=== PATIENT | female | born 1945 | race Caucasian/White ===

== ENCOUNTER → 2017-01-26 | Outpatient (CLI) | payer OTHER ==
[~2017-01-26] MED LIST: CLON0.5T3 PO; EFFSR75 PO; LAMO100T16 PO; LAMO1TAB21 PO; LEVO25TA5 PO; MINO100C22 PO; ONDA4TAB7 SL; PRM625 PO; PRMVC PV; VENL75CA73 PO
--- NOTE | 2017-01-29 12:45 | MAMMOGRAPHY REPORT ---
BILATERAL DIGITAL SCREENING MAMMOGRAM WITH CAD: 01/26/2017 CLINICAL HISTORY: Routine screening. Patient has no complaints. TECHNIQUE: Current study was also evaluated with a Computer Aided Detection (CAD) system. Bilatera l CC and MLO views were obtained. COMPARISON: Comparison is made to exams dated: 01/26/2016 mammogram, 01/25/2015 mammogram, 01/23/2014 mirian mogram, 01/22/2013 mammogram, 01/16/2012 mammogram, and 01/11/2011 mammogram - [facility]. BREAST COMPOSITION: There are scattered areas of fibroglandular density in both breasts. FINDINGS: No suspicious masses, calcifications, or areas of architectural distortion are noted in e ither breast. There has been no significant interval change compared to prior exams. Nodular asymme try seen within the right superior breast middle depth on the MLO view is similar to prior exams inc luding the 2014 exam. IMPRESSION: ACR BI-RADS CATEGORY 2: BENIGN There is no mammographic evidence of malignancy. A 1 year screening mammogram is recommended. The p atient will receive written notification of the results. Approximately 10% of breast cancers are not detected with mammography. A negative mammographic repor t should not delay biopsy if a clinically suggestive mass is present. Norah Gregorio M.D. ah/:01/26/2017 16:11:24 Nutrition And Dietetics Instructor: Tammie HOLLEY(R)(M), [facility] letter sent: Normal 1/2 BI-RADS Code: ACR BI-RADS Category 2: Benign
== END | disposition home or self-care (01) ==
LOC: C.MAMM 09:12
PROVIDERS: ATTEND Nurse Practitioner
DX: Z12.31 Encounter for screening mammogram for malignant neoplasm of breast (principal)

== ENCOUNTER 2017-03-21 15:59 | Emergency (ER) | payer OTHER ==
[~2017-03-21] VITALS: Ht 165.1 cm; Wt 63.9 kg
[~2017-03-21 15:59] MED LIST changes: -LAMO1TAB21 PO; -LEVO25TA5 PO; -PRMVC PV; -VENL75CA73 PO
[2017-03-21 16:00] VITALS: TEMP 36.6; Ht 165.1 cm; Wt 63.9 kg
[2017-03-21] MEDS ORDERED: KETOROLAC TROMETHAMINE 30 MG/ML VIAL IV STA (16:22)
[2017-03-21] MEDS ORDERED: SODIUM CHLORIDE 0.9% 1000ML 1,000 ML IV STA (16:22)
[2017-03-21] MEDS ORDERED: OPTIRAY 320 IV PRN (16:45)
[2017-03-21 16:48] LABS: URINE APPEARANCE CLEAR (CLEAR); URINE BILIRUBIN NEG (NEG); URINE COLOR YELLOW; URINE NITRITE NEG (NEG); URINE PH 6.5 (4.5-7.5); URINE SPECIFIC GRAVITY 1.007 (1.000-1.030); UROBILINOGEN NEG (NEG); ZZUR CULT IF INDIC CLEAN CATCH NO
[2017-03-21 16:49] LABS: MANUAL MICROSCOPIC REQUIRED? YES; REVIEW REQ? NO
[2017-03-21 17:06] LABS: URINE RBC 0-4 /hpf (0-4)
[2017-03-21 17:07] LABS: URINE BACTERIA NEG (NEG)
[2017-03-21 17:12] LABS: BASO % 0.6 %; BASO ABS # 0.04 K/uL (0-0.2); COMPLETE YES; EOS % 2.9 %; HEMATOCRIT 39.3 % (37-47); IG% 0.3 %; LYMPH % 30.2 %; LYMPH ABS # 2.09 K/uL (1.2-3.4); MEAN CELL VOLUME 89.9 fL (80-100); MEAN CORPUSCULAR HGB CONC 33.3 g/dl (32-36); MEAN PLATELET VOLUME 9.9 fL (7.4-10.4); MONO % 7.8 %; NEUT % 58.2 %; PLATELET COUNT 262 K/uL (130-400); RED BLOOD COUNT 4.37 M/uL (4.2-5.4); WHITE BLOOD COUNT 6.91 K/uL (4.8-10.8)
[2017-03-21] MEDS ORDERED: VENL75CA73 PO (17:21)
[2017-03-21] MEDS ORDERED: LAMO1TAB21 PO (17:21)
[2017-03-21] MEDS ORDERED: PRMVC PV (17:21)
[2017-03-21] MEDS ORDERED: LEVO25TA5 PO (17:21)
[2017-03-21] MEDS ORDERED: CLON0.5T3 PO ×2 (17:21)
[2017-03-21 17:39] LABS: AST/SGOT 19 U/L (15-37); BLOOD UREA NITROGEN 8 mg/dl (7-18); BUN/CREATININE RATIO 10.4 (10-20); CARBON DIOXIDE 30 mmol/L (21-32); CHLORIDE 106 mmol/L (98-107); CREATININE 0.75 mg/dl (0.60-1.20); GLUCOSE 93 mg/dl (70-99); POTASSIUM 3.8 mmol/L (3.5-5.1); SODIUM 142 mmol/L (136-145)
[2017-03-21 17:41] LABS: ALKALINE PHOSPHATASE 84 U/L (45-117); ALT/SGPT 23 U/L (12-78)
--- NOTE | 2017-03-21 18:16 | DIAGNOSTIC IMAGING REPORT ---
CT ABD/PELVIS IV CONTRAST ONLY CLINICAL HISTORY: Worsening lower abdominal pain and constipation COMPARISON STUDY: 02/24/2010 TECHNIQUE: Following the IV administration of 117 mL of Optiray-320, CT scan of the abdomen and pelvis was performed from the lung bases to the proximal femurs. Images are reviewed in the axial, sagittal, and coronal planes. IV contrast was administered without complication. CT DOSE: 298.51 mGy.cm FINDINGS: Lower chest: There are bibasal atelectatic changes. Liver: There is a new 6 mm hypodensity within the right lobe of the liver. This is of rather low attenuation and may represent a cyst. Gallbladder: Surgically absent Spleen: Normal in size and attenuation. Pancreas: Unremarkable. Adrenal glands: Unremarkable. Kidneys: There is a probable 3 mm right renal calculus. There is no hydronephrosis. There is a to small to characterize 6 mm upper pole right renal hypodensity likely representing a cyst. Bowel: There are no transition zones indicate bowel obstruction. There is moderate fecal retention. There is no evidence of acute diverticulitis. There are no findings to indicate acute appendicitis. The appendix is difficult to visualize with certainty. Peritoneum: There is no intraperitoneal free air or abdominal ascites. Vasculature: The abdominal aorta is normal in course and caliber. Adenopathy: None. Pelvic viscera: The uterus appears surgically absent Skeletal structures: No destructive osseous lesions are seen. IMPRESSION: 1. Moderate fecal retention, finding in keeping with the clinical history of constipation 2. No evidence of bowel obstruction. No evidence of free air 3. No acute inflammatory changes 4. Surgically absent gallbladder and uterus Electronically signed by: Chad Gaxiola M.D. 03/21/2017 6:15 PM Dictated Date/Time: 03/21/2017 6:09 PM
[2017-03-21 18:41] VITALS: BP 153/83; PULSE 84; O2SAT 97
--- NOTE | 2017-03-21 22:58 | EMERGENCY ROOM VISIT NOTE ---
History Report prepared by Kamar: Maricruz Mixon Under the Supervision of: Dr. Julio Lopez D.O. First contact with patient: 16:04 Chief Complaint: CONSTIPATION Stated Complaint: SEVERE CONSTIPATION Nursing Triage Summary: Triage note: pt reports constipation. pt reports she has not had a bm in 2 weeks. pt reports she had an x-ray done yesterday "it showed no blockage." History of Present Illness The patient is a 71 year old female who presents to the Emergency Room with complaints of constant constipation beginning 3 weeks ago. The patient states that she had not had a bowel movement in 2 weeks before going to see Dr. Vale. She reports that she tried using 2 laxatives prior to seeing Dr. Vale and when she got to the office she was able to have a watery bowel movement after using Magnesium Citrate. She notes that she has also had 2 enemas without relief of her constipation. The patient states that she has been able to pass gas but has not had another bowel movement since she was at Dr. Vale's office 5 days ago. She reports that she does not have a history of constipation but has had some hard stools in the past. The patient complains of a headache. She denies any abdominal pain, change in vision, fevers, chest pain, shortness of breath, nausea, vomiting, diarrhea, pain with urination, and melena. She notes that she had a CT scan 2 weeks ago of her abdomen. Source of History: patient Onset: 3 weeks ago Position: other (global) Quality: other (constipation) Timing: constant Modifying Factors (Relieving): other (none) Associated Symptoms: + headache, No SOB, No chest pain, No diarrhea, No fevers, No nausea, No urinary symptoms, No vomiting Note: She denies any abdominal pain, change in vision. Review of Systems See HPI for pertinent positives & negatives. A total of 10 systems reviewed and were otherwise negative. Past Medical & Surgical Medical Problems: (1) Acne (2) Asthma (3) C. Diff (4) Pneumonia (5) Urinary problem Surgical Problems: (1) H/O: hysterectomy (2) Hx of cholecystectomy Family History Diabetes mellitus FH: cancer FH: gallbladder disease FH: heart disease FH: lung disease Hypertension Kidney disease or stones Social History Smoking Status: Never Smoker Alcohol Use: none Marital Status: Housing Status: lives with significant other Occupation Status: retired Current/Historical Medications Scheduled Clonazepam (Klonopin), 0.5 MG PO PM Estrogens, Conjugated (Premarin), 1 APPLN PV 2XWK Lamotrigine (Lamictal), 200 MG PO QAM Lamotrigine (Lamotrigine), 100 MG PO QPM Levothyroxine Sodium (Levothyroxine Sodium), 25 MCG PO DAILY Venlafaxine Hcl (Venlafaxine Extended Rel), 75 MG PO BID Scheduled PRN Clonazepam (Klonopin), 1 MG PO QAM PRN for Anxiety Allergies Coded Allergies: Sulfamethoxazole (Verified Allergy, Mild, 03/21/17) Trimethoprim (Verified Allergy, Mild, 03/21/17) Adhesives (Verified Allergy, Unknown, RXN TO ADHESIVE TAPE, 03/21/17) Latex1 -Allergic Contact Dermititis (Verified Allergy, Unknown, RASH, 03/21) Sulfa Drugs (Verified Allergy, Unknown, BACTRIM=RASH, 03/21/17) Physical Exam Vital Signs Date Time Temp Pulse Resp B/P Pulse Ox O2 Delivery O2 Flow Rate FiO2 03/21/17 18:41 84 16 153/83 97 03/21/17 18:21 84 16 188/94 97 Room Air 03/21/17 17:08 80 12 152/73 100 Room Air 03/21/17 16:45 75 03/21/17 16:00 36.6 89 18 166/79 100 Room Air Physical Exam GENERAL: sitting up in bed, alert, well appearing, well nourished, no distress, non-toxic EYE EXAM: normal conjunctiva OROPHARYNX: no exudate, no erythema, lips, buccal mucosa, and tongue normal and mucous membranes are moist NECK: supple, no nuchal rigidity, no adenopathy, non-tender LUNGS: Clear to auscultation. Normal chest wall mechanics HEART: no murmurs, S1 normal and S2 normal ABDOMEN: abdomen soft, minimal tenderness in lower abdomen, normo-active bowel sounds, no masses, no rebound or guarding. BACK: Back is symmetrical on inspection and there is no deformity, no midline tenderness, no CVA tenderness. SKIN: no rashes and no bruising UPPER EXTREMITIES: upper extremities are grossly normal. LOWER EXTREMITIES: No pitting edema. NEURO EXAM: Normal sensorium, cranial nerves II-XII grossly intact, normal speech, no gross weakness of arms, no gross weakness of legs. Medical Decision & Procedures ER Provider Diagnostic Interpretation: Radiology results as stated below per my review and the radiologist's interpretation: CT ABD/PELVIS IV CONTRAST ONLY FINDINGS: Lower chest: There are bibasal atelectatic changes. Liver: There is a new 6 mm hypodensity within the right lobe of the liver. This is of rather low attenuation and may represent a cyst. Gallbladder: Surgically absent Spleen: Normal in size and attenuation. Pancreas: Unremarkable. Adrenal glands: Unremarkable. Kidneys: There is a probable 3 mm right renal calculus. There is no hydronephrosis. There is a to small to characterize 6 mm upper pole right renal hypodensity likely representing a cyst. Bowel: There are no transition zones indicate bowel obstruction. There is moderate fecal retention. There is no evidence of acute diverticulitis. There are no findings to indicate acute appendicitis. The appendix is difficult to visualize with certainty. Peritoneum: There is no intraperitoneal free air or abdominal ascites. Vasculature: The abdominal aorta is normal in course and caliber. Adenopathy: None. Pelvic viscera: The uterus appears surgically absent Skeletal structures: No destructive osseous lesions are seen. IMPRESSION: 1. Moderate fecal retention, finding in keeping with the clinical history of constipation 2. No evidence of bowel obstruction. No evidence of free air 3. No acute inflammatory changes 4. Surgically absent gallbladder and uterus Electronically signed by: Chad Gaxiola M.D. 03/21/2017 6:15 PM Dictated Date/Time: 03/21/2017 6:09 PM Laboratory Results 03/21/17 16:55 Red Blood Count 4.37, Mean Corpuscular Volume 89.9, Mean Corpuscular Hemoglobin 30.0, Mean Corpuscular Hemoglobin Concent 33.3, Mean Platelet Volume 9.9, Neutrophils (%) (Auto) 58.2, Lymphocytes (%) (Auto) 30.2, Monocytes (%) (Auto) 7.8, Eosinophils (%) (Auto) 2.9, Basophils (%) (Auto) 0.6, Neutrophils # (Auto) 4.02, Lymphocytes # (Auto) 2.09, Monocytes # (Auto) 0.54, Eosinophils # (Auto) 0.20, Basophils # (Auto) 0.04 03/21/17 16:55 Test 03/21/17 16:20 03/21/17 16:55 Urine Color YELLOW Urine Appearance CLEAR (CLEAR) Urine pH 6.5 (4.5-7.5) Urine Specific [place] 1.007 (1.000-1.030) Urine Protein NEG (NEG) Urine Glucose (UA) NEG (NEG) Urine Ketones NEG (NEG) Urine Occult Blood NEG (NEG) Urine Nitrite NEG (NEG) Urine Bilirubin NEG (NEG) Urine Urobilinogen NEG (NEG) Urine Leukocyte Esterase TRACE (NEG) Urine WBC (Auto) /hpf (0-5) Urine RBC (Auto) /hpf (0-4) Urine Hyaline Casts (Auto) /lpf (0-5) Urine Epithelial Cells (Auto) /lpf (0-5) Urine Bacteria (Auto) (NEG) Urine RBC 0-4 /hpf (0-4) Urine WBC 1-5 /hpf (0-5) Urine Epithelial Cells 5-10 /lpf (0-5) Urine Bacteria NEG (NEG) White Blood Count 6.91 K/uL (4.8-10.8) Red Blood Count 4.37 M/uL (4.2-5.4) Hemoglobin 13.1 g/dL (12.0-16.0) Hematocrit 39.3 % (37-47) Mean Corpuscular Volume 89.9 fL (80-100) Mean Corpuscular Hemoglobin 30.0 pg (25-34) Mean Corpuscular Hemoglobin Concent 33.3 g/dl (32-36) Platelet Count 262 K/uL (130-400) Mean Platelet Volume 9.9 fL (7.4-10.4) Neutrophils (%) (Auto) 58.2 % Lymphocytes (%) (Auto) 30.2 % Monocytes (%) (Auto) 7.8 % Eosinophils (%) (Auto) 2.9 % Basophils (%) (Auto) 0.6 % Neutrophils # (Auto) 4.02 K/uL (1.4-6.5) Lymphocytes # (Auto) 2.09 K/uL (1.2-3.4) Monocytes # (Auto) 0.54 K/uL (0.11-0.59) Eosinophils # (Auto) 0.20 K/uL (0-0.5) Basophils # (Auto) 0.04 K/uL (0-0.2) RDW Standard Deviation 42.5 fL (36.4-46.3) RDW Coefficient of Variation 12.9 % (11.5-14.5) Immature Granulocyte % (Auto) 0.3 % Immature Granulocyte # (Auto) 0.02 K/uL (0.00-0.02) Anion Gap 6.0 mmol/L (3-11) Est Creatinine Clear Calc Drug Dose 63.7 ml/min Estimated GFR () 94.3 Estimated GFR (Non- 81.3 BUN/Creatinine Ratio 10.4 (10-20) Calcium Level 9.0 mg/dl (8.5-10.1) Total Bilirubin 0.3 mg/dl (0.2-1) Direct Bilirubin < 0.1 mg/dl (0-0.2) Aspartate Amino Transf (AST/SGOT) 19 U/L (15-37) Alanine Aminotransferase (ALT/SGPT) 23 U/L (12-78) Alkaline Phosphatase 84 U/L (45-117) Total Protein 6.8 gm/dl (6.4-8.2) Albumin 4.0 gm/dl (3.4-5.0) Lipase 168 U/L (73-393) Laboratory results per my review. Medications Administered Medications (Trade) Dose Ordered Sig/Toya Route Start Time Stop Time Status Last Admin Dose Admin Sodium Chloride (Nss 1000ml) 1,000 ml @ 999 mls/hr Q1H1M STAT IV 03/21/17 16:22 03/21/17 17:22 DC 03/21/17 17:06 999 MLS/HR Ketorolac Tromethamine (Toradol Inj) 15 mg NOW STAT IV 03/21/17 16:22 03/21/17 16:23 DC 03/21/17 17:06 15 MG ED Course ED COURSE: Vital signs were reviewed and showed hypertension The patients medical record was reviewed The above diagnostic studies were performed and reviewed. ED treatments and interventions as stated above. 1604: The patient was evaluated in room A12. A complete history and physical examination was performed. 1622: Toradol Inj 15mg IV, Sodium Chloride 1000 ml @ 999 mls/hr IV. 1812: I reevaluated and updated the patient. 1844: Upon reevaluation, the patient is doing well.I discussed my findings with the patient and she understands and agrees with the treatment plan. Based on the patients age, coexisting illnesses, exam and lab findings the decision to treat as an outpatient was made. The patient remained stable while under my care. The patient appeared well at the time of discharge. Medical Decision Differential diagnoses includes but is not limited to gastritis, peptic ulcer disease, GERD, gallbladder disease, pancreatitis, small bowel obstruction, acute coronary syndrome, pericarditis, ischemic bowel, irritable bowel disease, irritable bowel syndrome, appendicitis, diverticulitis, malignancy, hernia, urinary tract infection, torsion, /ectopic (if female), perforation, trauma, infectious. Medication Reconciliation: I attest that I have personally reviewed the patient' s current medication list. Blood pressure screening: Patient was found to have an elevated blood pressure and was referred to their primary doctor for recheck and further treatment. Patient is a 71-year-old female who presents the ER for abdominal pain. Her last bowel movement was 5 days ago which was watery. Prior to this it was about a week. No fevers or nausea/vomiting. Abdominal exam is fairly benign. CT of her abdomen/pelvis shows constipation. CBC along with BMP, LFTs and bilirubin was unremarkable. UA was negative. Patient was updated in regards to findings and was discharged and instructed to take a MiraLAX prep and follow- up with her PCP. Discussed with Pt concerning signs and symptoms to watch out for. Pt was instructed to follow up with their PCP and discussed with the patient their option to return to the ED at anytime for persistent or worsening symptoms. The appropriate anticipatory guidance and out-patient management, including indications for return to the emergency department, were explained at length to the patient and understood. Impression Primary Impression: Constipation Additional Impressions: Abdominal pain HTN (hypertension) Scribe Attestation The scribe's documentation has been prepared under my direction and personally reviewed by me in its entirety. I confirm that the note above accurately reflects all work, treatment, procedures, and medical decision making performed by me. Departure Information Referrals Devan Montes M.D. (PCP) Forms HOME CARE DOCUMENTATION FORM, IMPORTANT VISIT INFORMATION Patient Instructions Constipation, My [facility] Additional Instructions Please follow up with your primary care doctor with in the next 24 hours. Any worsening of your symptoms, please return to the ED immediately. This includes fevers greater than 100.4, persistent nausea vomiting, worsening abdominal pain , blood in your stool, or any other concerning signs or symptoms from your standpoint. Please take 250 g of MiraLAX and mix with 64 ounces of Gatorade and drink 8 ounces every 15-20 minutes until you have a bowel movement. If this is not successful you can repeat once. Following this daily you should take 100 mg of Colace twice a day and 10 mg of Senokot daily Problem Qualifiers Primary Impression: Constipation Constipation type: unspecified constipation type Qualified Codes: K59.00 - Constipation, unspecified Additional Impressions: Abdominal pain Abdominal location: unspecified location Qualified Codes: R10.9 - Unspecified abdominal pain HTN (hypertension) Hypertension type: unspecified secondary hypertension Qualified Codes: I15.9 - Secondary hypertension, unspecified
== END 2017-03-21 18:44 | disposition home or self-care (01) ==
LOC: C.EDB 16:00 → C.EDA 18:44
DX: K59.00 Constipation, unspecified (principal); I15.9 Secondary hypertension, unspecified; J45.909 Unspecified asthma, uncomplicated; Z87.01 Personal history of pneumonia (recurrent); Z86.19 Personal history of other infectious and parasitic diseases; Z90.710 Acquired absence of both cervix and uterus; Z90.49 Acquired absence of other specified parts of digestive tract; Z83.3 Family history of diabetes mellitus; Z80.9 Family history of malignant neoplasm, unspecified; Z82.49 Family history of ischemic heart disease and other diseases of the circulatory system; Z84.1 Family history of disorders of kidney and ureter; Z79.899 Other long term (current) drug therapy

== ENCOUNTER 2018-01-06 16:32 | Emergency (ER) | payer OTHER ==
[~2018-01-06 16:32] MED LIST changes: -EFFSR75 PO; +LAMO1TAB21 PO; +LEVO25TA5 PO; -MINO100C22 PO; -ONDA4TAB7 SL; -PRM625 PO; +PRMVC PV; +VENL75CA73 PO
[2018-01-06 16:44] VITALS: TEMP 36.4; Ht 167.6 cm
[2018-01-06] MEDS ORDERED: PROPARACAINE HCL 0.5% OP SOLN 15 ML BTL ONE (16:50)
[2018-01-06] MEDS ORDERED: HYDR-5688 PO (17:29)
[2018-01-06] MEDS ORDERED: CIPR0.3S OP (17:29)
[2018-01-06 17:35] VITALS: BP 144/81; PULSE 55; O2SAT 98
--- NOTE | 2018-01-07 14:41 | EMERGENCY ROOM VISIT NOTE ---
ED Visit Note First contact with patient: 16:49 Chief Complaint: I think my dog scratch my right eye. History of Present Illness: Ms. Willis is a 72-year-old white female who ambulates into the ED accompanied by her complaining of right eye pain. Patient reports approximately 1.5 days ago she was holding her family dog and he scratched her right eye. Since that time she is developed mild blurry vision , eye pain, light sensitivity and tearing in the right eye. Currently she describes her pain as a mild burning sensation. She rates her discomfort 5/10. The pain is nonradiating. Pain worsens with exposure light. She has not identified any alleviating factors related to the pain. She has not taken medication for pain prior to arrival at the hospital. Associated with her pain or the symptoms noted above and she denies fevers, chills, sweats, skin eruptions, headache, dizziness, lightheadedness, decrease in overall vision, flashing light, floaters, drawing curtains, decreased appetite, nausea/vomiting. Review of Systems: As noted above in history of present illness. 8 body systems were reviewed and found to be negative as noted above. Past Medical History: Unspecified skin disorder, asthma, pneumonia, kidney stones, status post hysterectomy and cholecystectomy. Current Medications: Lamictal, Klonopin, levothyroxine, venlafaxine, premarin, lamotrigine. Allergies to Medications: Latex, Bactrim. Social History: Patient is not employed; she lives with her and feels safe in her home environment; she denies tobacco and alcohol use Tetanus Immunization History: Patient reports up-to-date. Physical Examination: Vital Signs: Date Time Temp Pulse Resp B/P (MAP) Pulse Ox O2 Delivery O2 Flow Rate FiO2 01/06/18 17:35 55 18 144/81 98 01/06/18 16:44 36.4 81 18 99 Room Air GENERAL: 72-year-old female in mild distress due to pain, nontoxic-appearing, afebrile and hemodynamically stable. NEUROLOGICAL: Awake, alert and oriented to person, place and time. Answering questions appropriately and following commands. Normal gait. Good hand eye coordination. SKIN: Warm, dry and pink. No soft tissue trauma noted. HEENT: Atraumatic and normocephalic. PERRLA. EOMI without nystagmus. Visual Acuity: Right 20/70, Left 20/40 without correction. Sclera over the right eye is moderately injected. Conjunctiva pink draining clear tears. No foreign bodies were noted under the eyelids are embedded in the cornea. The anterior chamber is clear. Slit-lamp examination and staining patient had multiple areas of uptake over the 11 to 1:00 area and the 6:00 area. No foreign bodies were noted during this examination. ED Course: Patient is assessed as noted above. Patient's medication list was reviewed. Alcaine was used to anesthetize the eye for examination. Patient was educated about today's findings and instructed on her treatment plan ; she verbalized understanding and agreement with this plan. Clinical Impression: Right corneal abrasion. Disposition: Patient discharged home in stable condition accompanied by her ; prior to departure she was reassessed and subjectively reported she was pain-free. Plan: Patient was placed on a sliding pain medication scale of ibuprofen, acetaminophen and Carey; she was given appropriate narcotic precautions and her name was checked on state database and no red flags were noted. Patient was prescribed Ciloxan ophthalmic solution encouraged to use 2 drops in the right eye every 4 hours while awake for 5 days. Patient was encouraged to use sunglasses for light sensitivity. Patient was encouraged to follow-up with her senior court office assistant for recheck or return to the ED in 36-48 hours for recheck. Patient was encouraged to return the ED sooner for fevers, severe headaches, visual changes, worsening eye drainage, puslike eye drainage or any new/ concerning symptoms.
== END 2018-01-06 17:35 | disposition home or self-care (01) ==
LOC: C.EDB 16:33 → C.EDD 17:35
DX: S05.01XA Injury of conjunctiva and corneal abrasion without foreign body, right eye, initial encounter (principal); W54.8XXA Other contact with dog, initial encounter; J45.909 Unspecified asthma, uncomplicated; Z87.01 Personal history of pneumonia (recurrent); Z87.442 Personal history of urinary calculi; Z90.710 Acquired absence of both cervix and uterus; Z90.49 Acquired absence of other specified parts of digestive tract; Z79.899 Other long term (current) drug therapy; Z91.040 Latex allergy status; Z88.8 Allergy status to other drugs, medicaments and biological substances

== ENCOUNTER → 2018-01-29 | Outpatient (CLI) | payer OTHER ==
[~2018-01-29] MED LIST changes: +HYDR-5688 PO
--- NOTE | 2018-01-29 15:26 | MAMMOGRAPHY REPORT ---
BILATERAL DIGITAL SCREENING MAMMOGRAM TOMOSYNTHESIS WITH CAD: 01/29/2018 CLINICAL HISTORY: Routine screening. Patient has no complaints. TECHNIQUE: Breast tomosynthesis in addition to standard 2D mammography was performed. Current study was also evaluated with a Computer Aided Detection (CAD) system. COMPARISON: Comparison is made to exams dated: 01/26/2017 mammogram, 01/26/2016 mammogram, 01/25/2015 mamm ogram, 01/23/2014 mammogram, 01/22/2013 mammogram, and 01/16/2012 mammogram - [facility] . BREAST COMPOSITION: The tissue of both breasts is heterogeneously dense, which may obscure small mas ses. FINDINGS: There is a newly visualized 5 mm nodular asymmetry versus mass in the inferior middle one third of the right breast, best seen on the MLO view, for which additional spot compression tomosynth esis views and possible ultrasound are recommended. A 9 mm nodular asymmetry in the medial posterior left breast on the CC view is increasingly conspicuous comparing to prior exams and although it coul d represent normal overlapping fiber glandular tissue, additional spot compression tomosynthesis view s and possible ultrasound are recommended. No other suspicious mass, architectural distortion or cluster of microcalcifications is seen bilatera lly. IMPRESSION: ACR BI-RADS CATEGORY 0: INCOMPLETE EVALUATION: NEED ADDITIONAL IMAGING EVALUATION The 5 mm nodular asymmetry in the inferior right breast, and 9 mm nodular asymmetry in the medial po sterior left breast need additional imaging evaluation. The patient will be called to schedule an appointment. Approximately 10% of breast cancers are not detected with mammography. A negative mammographic report should not delay biopsy if a clinically suggestive mass is present. Dai Mckeon M.D. ay/:01/29/2018 15:21:31 Cosmetics Supervisor: Makayla HOLLEY(Jos)(M), [facility] letter sent: Addl Imaging 0 BI-RADS Code: ACR BI-RADS Category 0: Incomplete Evaluation: Need Additional Imaging Evaluation
== END | disposition home or self-care (01) ==
LOC: C.MAMM 09:32
PROVIDERS: ATTEND Nurse Practitioner
DX: Z12.31 Encounter for screening mammogram for malignant neoplasm of breast (principal); N64.89 Other specified disorders of breast

== ENCOUNTER 2024-06-24 12:54 | Inpatient (IN) ==
--- NOTE | 2024-06-24 13:26 | Emergency Department Note ---
Impression & Plan Acute left flank pain, Left sided abdominal pain, Renal colic, Hydronephrosis ED Provider Note NAME: WILLIAM CANDELARIA AGE: 79 SEX: F : 1945 ARRIVES VIA: Ambulance INFORMANT: [Patient][ems] ED PROVIDER(S): [Mikel Montalvo MD] CHIEF COMPLAINT: Abdominal pain HISTORY OF PRESENT ILLNESS: The patient is a 79-year-old female with a known left renal stone. She states that 2 hours ago, she suddenly had pain in the left flank that is moving to the left lower quadrant. No nausea or vomiting. The pain was quite severe and seems to come in colicky waves. En route to the hospital, she was given IV morphine, 4 mg, with some pain relief although, the pain seems to be returning. There has been no cough or cold or congestion. She was in baseline health earlier today. This came out of nowhere and came on quite suddenly. She does not feel short of breath, there is no chest pain. She has not noticed any urinary difficulty. PMHx/PSHx/Social Hx: See Below PHYSICAL EXAM: GENERAL: Patient is in moderate distress from pain. Anxious. HEENT: No acute trauma, normocephalic atraumatic, mucous membranes moist, no nasal congestion. NECK: No stridor, no adenopathy, no meningismus, trachea is midline. LUNGS: Clear to auscultation bilaterally, no wheeze, no rhonchi, breath sounds equal. HEART: 2/6 systolic murmur heard best at the right sternal border. Regular rate and rhythm. ABDOMEN: Soft, somewhat tender in the left lower quadrant, no distention or peritonitis. EXTREMITIES: No cyanosis, full range of motion of all the joints without pain or difficulty. NEUROLOGIC: Oriented x 3, no acute motor or sensory deficits, no focal weakness. SKIN: No jaundice, no diaphoresis. Back: Left flank discomfort with percussion. DIFFERENTIAL DIAGNOSIS: Renal colic, UTI, AAA, hydronephrosis, musculoskeletal pain, among others. EMERGENCY DEPARTMENT PROCEDURES: MEDICAL DECISION MAKING: There is a mild leukocytosis, this could be consistent with infection or just the stress and pain of her current situation. There is a normal hemoglobin and platelet count. No renal failure or significant electrolyte abnormality. No concerning liver enzyme elevation. No evidence for pancreatitis. Urinalysis showed blood, no infection. Abdominal and pelvis CT shows left-sided hydronephrosis with a large proximal 9 mm ureteral stone. No acute surgical process by CT. The patient presented in pain despite the morphine given prior to arrival. She received IV saline, IV Zofran, IV Toradol and IV Dilaudid. This seemed to control her discomfort. Patient has a very large stone that will likely not pass spontaneously. Admission is warranted. I discussed the case with urology. I did speak with case management, the on- call hospitalist has been consulted. Prior/Outside records/notes reviewed: Today's EMS notes describing her presentation and transport to this hospital. Imaging/x-ray results per my interpretation: Chronic Medical/Social conditions affecting care: Advanced age. Care/Management discussed with: Urology-Dr. Mckeon. Case management and the on-call hospitalist. Level of care consideration(s): After review of the information above and other included data: --I believe the patient requires escalation of care to admission DISPOSITION: Admission Past Med/Surg History Problem List (Updated 06/24/24 @ 17:10 by Mikel Montalvo MD) Hydronephrosis (Acute) Renal colic (Acute) Left sided abdominal pain (Acute) Acute left flank pain (Acute) Encounter for pre-operative examination Acne (Chronic) hx Urinary problem (Chronic) Abdominal pain (Acute) Constipation (Acute) Dehydration (Acute) Vomiting and diarrhea (Acute) Psychological disorder Asthma (Chronic) nebulizer prn HTN (hypertension) (Acute) Medical History Hx of migraines Mild mitral valve prolapse Hyperlipidemia GERD (gastroesophageal reflux disease) Anxiety and depression Surgical History Hx of cataract extraction rt. History of esophagogastroduodenoscopy (EGD) Hx of colonoscopy Hx of non-cataract eye surgery Hx of wisdom tooth extraction Family History Other Heart disease Social History Smoking Status: Never smoker Second Hand Exposure: Yes (hx as child); Do You Dip or Chew Tobacco: No; Hx Alcohol Use: No Hx Substance Use: No Preferred Language: Turkmen Communication Ability: Effective Craft Coordinator Required: No Beliefs That Will Affect Care: None marital status: Current Living Situation: Spouse current occupational status: retired Feels Safe at Home: Yes Assistive Devices: Glasses Allergies Allergies Allergy/AdvReac Type Severity Reaction Status Date / Time Sulfa (Sulfonamide Allergy Mild Rash Verified 06/24/24 15:51 Antibiotics) sulfamethoxazole Allergy Mild Rash Verified 06/24/24 15:51 trimethoprim Allergy Mild Rash Verified 06/24/24 15:51 adhesive Allergy Unknown Skin Verified 06/24/24 15:51 Irritation latex Allergy Unknown Rash Verified 06/24/24 15:51 Home Meds Home Medications Medication Instructions Recorded Confirmed acetaminophen 325 mg tablet 650 mg PO QID PRN Pain 11/10/19 06/24/24 (Tylenol) pantoprazole 40 mg tablet,delayed 40 mg PO BID 11/10/19 06/24/24 release bupropion HCl 150 mg tablet,12 hr 150 mg PO QAM 03/20/23 06/24/24 sustained-release desvenlafaxine 100 mg 100 mg PO QPM 03/20/23 06/24/24 tablet,extended release 24 hr gabapentin 300 mg capsule 300 mg PO BID 03/20/23 06/24/24 lamotrigine 100 mg tablet 100 mg PO QPM 03/20/23 06/24/24 rosuvastatin 5 mg tablet 5 mg PO Q2D 03/20/23 06/24/24 betamethasone dipropionate 0.05 % 1 applic topical BID PRN Skin 06/24/24 06/24/24 topical cream Irritation vitamin B12 1,000 mcg-folic acid 1 minnie sublingual QAM 06/24/24 06/24/24 400 mcg sublingual lozenge Results & Data (ED) Vital Signs Vital Signs - 24 hr 06/24/24 13:12 06/24/24 13:15 06/24/24 13:18 Temperature 36.9 C Temperature Source Oral Pulse Rate 76 88 79 Pulse Rhythm Respiratory Rate 16 21 Respiratory Effort / Characteristics Non-Labored Respiratory Depth Normal Blood Pressure 145/88 H 146/90 H Blood Pressure Mean 107 108 Pulse Oximetry 96 100 Oxygen Delivery Method Room Air Sepsis Recent Fever Within 48 Hours No Sepsis New/Unexplained Change in Mental Status N/A Sepsis Action Taken by Nursing No Action Required 06/24/24 13:26 06/24/24 13:32 06/24/24 14:00 Temperature Temperature Source Pulse Rate 78 83 76 Pulse Rhythm Regular Respiratory Rate 20 21 19 Respiratory Effort / Characteristics Respiratory Depth Blood Pressure 185/94 H 164/125 H Blood Pressure Mean 131 144 Pulse Oximetry 96 100 100 Oxygen Delivery Method Room Air Sepsis Recent Fever Within 48 Hours Sepsis New/Unexplained Change in Mental Status Sepsis Action Taken by Nursing 06/24/24 14:30 06/24/24 15:00 Temperature Temperature Source Pulse Rate 79 81 Pulse Rhythm Respiratory Rate 17 16 Respiratory Effort / Characteristics Respiratory Depth Blood Pressure 142/75 H 148/78 H Blood Pressure Mean 118 118 Pulse Oximetry 100 99 Oxygen Delivery Method Sepsis Recent Fever Within 48 Hours Sepsis New/Unexplained Change in Mental Status Sepsis Action Taken by Intermediate Medications Current Medication List: was personally reviewed by me Laboratory Data Attestation: I reviewed the patient's lab results. 06/24/24 13:15 06/24/24 13:15 Lab Results 06/24/24 06/24/24 Range/Units 13:15 14:46 WBC 12.63 H (4.8-10.8) K/ul RBC 4.84 (4.20-5.40) M/uL Hgb 14.0 (12.0-16.0) g/dl Hct 42.5 (37.0-47.0) % MCV 87.8 (80.0-100.0) fL MCH 28.9 (25.0-34.0) pg MCHC 32.9 (32.0-36.0) g/dL RDW Std Deviation 44.7 (36.4-46.3) fL RDW Coeff of Felisha 13.8 (11.5-14.5) % Plt Count 275 (130-400) K/uL MPV 10.4 (9.4-12.4) fL Immature Gran % (Auto) 0.5 % Neut % (Auto) 74.4 % Lymph % (Auto) 14.5 % [place] % (Auto) 7.0 % Eos % (Auto) 2.9 % Baso % (Auto) 0.7 % Neut # (Auto) 9.39 H (1.40-6.50) K/uL Lymph # (Auto) 1.83 (1.20-3.40) K/uL [place] # (Auto) 0.89 H (0.11-0.59) K/uL Eos # (Auto) 0.37 (0.00-0.50) K/uL Baso # (Auto) 0.09 (0.00-0.20) K/uL Immature Gran # (Auto) 0.06 (0.01-0.20) K/uL Sodium 140 (136-145) mmol/L Potassium 4.0 (3.5-5.1) mmol/L Chloride 102 (98-107) mmol/L Carbon Dioxide 27 (21-32) mmol/L Anion Gap 11 (3-11) BUN 23 (6-23) mg/dl Creatinine 0.87 (0.6-1.2) mg/dl Est Cr Clr Drug Dosing Not Reportable Est GFR ( Amer) 74.5 ml/min Est GFR (Non-Af Amer) 64.3 ml/min BUN/Creatinine Ratio 26.4 H (10-20) Glucose 90 (70-99(Fasting)) mg/dl Calcium 10.0 (8.6-10.3) mg/dl Total Bilirubin 0.5 (0.2-1.0) mg/dl AST 21 (13-39) U/L ALT 15 (7-52) U/L Alkaline Phosphatase 61 (34-104) U/L Total Protein 7.5 (6.0-8.3) gm/dl Albumin 5.2 H (3.4-5.0) gm/dl Globulin 2.3 L (2.5-4.0) gm/dl Albumin/Globulin Ratio 2.3 H (0.9-2) Lipase 37 (11-82) U/L Urine Color Yellow Urine Appearance Cloudy A (Clear) Urine pH 7.5 (4.5-7.5) Ur Specific [place] 1.018 (1.000-1.030) Urine Protein 2+ H (Negative) Urine Glucose (UA) Negative (Negative) Urine Ketones 1+ H (Negative) Urine Blood 3+ H (Negative) Urine Nitrite Negative (Negative) Urine Bilirubin Negative (Negative) Urine Urobilinogen Negative (Negative) Ur Leukocyte Esterase 1+ H (Negative) Urine WBC (Auto) 6-10 H (0-5) /hpf Urine RBC (Auto) >20 H (0-2) /hpf U Hyaline Cast (Auto) 0-2 (0-2) /lpf U Epithel Cells (Auto) 3-5 H (0-2) /hpf Urine Bacteria (Auto) None Seen (None Seen) Administered Medications Hydromorphone HCl (Hydromorphone Inj 0.5 Mg/0.5 Ml Syr) 0.5 mg IV Q15M PRN PRN Reason: Pain Stop: 07/08/24 13:20 Last Admin: 06/24/24 16:13 Dose: 0.5 mg Documented By: BRENDA Discontinued Medications Hydromorphone HCl (Hydromorphone Inj 0.5 Mg/0.5 Ml Syr) 0.5 mg IV NOW STA Stop: 06/24/24 13:22 Last Admin: 06/24/24 13:27 Dose: 0.5 mg Documented By: WILI Sodium Chloride (Nss) 500 mls @ 999 mls/hr IV .Q31M STA Stop: 06/24/24 13:51 Last Infusion: 06/24/24 14:00 Dose: Infused Documented By: ROSA ISELA Admin: 06/24/24 13:31 Dose: 999 mls/hr Documented By: WILI Ketorolac Tromethamine (Ketorolac Tromethamine 15 Mg/Ml Vial) 15 mg IV NOW STA Stop: 06/24/24 13:22 Last Admin: 06/24/24 13:27 Dose: 15 mg Documented By: WILI Ondansetron HCl (Ondansetron Inj 2 Mg/Ml 2 Ml Vial) 4 mg IV NOW STA Stop: 06/24/24 13:22 Last Admin: 06/24/24 13:27 Dose: 4 mg Documented By: WILI Imaging Data Radiologist's Impression: Abdomen/Pelvis CT 06/24/24 13:[address] WITHOUT CONTRAST CT DOSE: 652.13 mGy.cm HISTORY: Acute left-sided flank pain left flank pain TECHNIQUE: Multiaxial CT images of the abdomen and pelvis were performed without contrast. A dose lowering technique was utilized adhering to the principles of ALARA. COMPARISON STUDY: 03/21/2017 FINDINGS: Lung bases are generally clear. No free air. Unremarkable unenhanced spleen, pancreas and adrenal glands. Cholecystectomy with likely postsurgical biliary ductal dilation. Liver is within normal limits. Unremarkable right kidney. 1.4 cm probable cyst of the posterior interpolar left kidney. There is moderate left-sided hydroureteronephrosis with reactive perinephric and periureteral stranding secondary to an obstructing 7 x 6 x 9 mm left ureteral calculus at the level of L3-L4. Unremarkable urinary bladder. Atherosclerosis of the aorta without aneurysm. No lymphadenopathy. Nonspecific distal esophageal wall thickening. There is no bowel obstruction or bowel wall thickening. Moderate colonic fecal retention. No CT evidence of acute appendicitis. Unremarkable soft tissues. No acute fracture. IMPRESSION: 1. Moderate left-sided hydroureteronephrosis secondary to an obstructing 9 mm left ureteral calculus at the level of L3-L4. 2. No bowel obstruction or bowel wall thickening. 3. Cholecystectomy. 4. Additional findings as above. ACT 112: Negative or not required by law. The above report was generated using voice recognition software. It may contain grammatical, syntax or spelling errors. Electronically signed by: Gavin Addison M.D. 06/24/2024 2:53 PM Discharge Plan Visit Data Chief Complaint: Abdominal Pain ED Provider: Mikel Montalvo Discharge Problem: Acute left flank pain, Left sided abdominal pain, Renal colic, Hydronephrosis Patient Disposition: Admitted As Inpatient Condition: Fair Forms Stand Alone Forms: [employer] Prescriptions Prescriptions: No Action acetaminophen [Tylenol] 325 mg Tablet 650 mg PO QID PRN (Reason: Pain) pantoprazole 40 mg tablet,delayed release (DR/EC) 40 mg PO BID bupropion HCl 150 mg tablet sustained-release 12 hr 150 mg PO QAM gabapentin 300 mg Capsule 300 mg PO BID lamotrigine 100 mg tablet 100 mg PO QPM rosuvastatin 5 mg tablet 5 mg PO Q2D desvenlafaxine 100 mg Tablet Extended Release 24 Hr 100 mg PO QPM betamethasone dipropionate 0.05 % Cream 1 applic TOPICAL BID PRN (Reason: Skin Irritation) Rx Instructions: APPLY TO FOREHEAD NEEDED vitamin [id number] acid 1,000-400 mcg Lozenge 1 minnie SUBLINGUAL QAM Referrals Referrals: Devan Montes MD [Primary Care Provider] - Discharge Problem: Hydronephrosis Qualifiers: Hydronephrosis type: with renal calculous obstruction Qualified Code(s): N13.2 - Hydronephrosis with renal and ureteral calculous obstruction
[2024-06-24] MEDS: ONDANSETRON INJ 2 MG/ML 2 ML VIAL IV STA (13:27)
[2024-06-24] MEDS: KETOROLAC TROMETHAMINE 15 MG/ML VIAL IV STA (13:27)
[2024-06-24] MEDS: HYDROmorphone INJ 0.5 MG/0.5 ML SYR IV STA (13:27)
[2024-06-24] MEDS: SODIUM CHLORIDE 0.9% 500 ML IV STA (13:31)
[2024-06-24 13:35] LABS: Basophils # (auto) 0.09 K/uL (0.00-0.20); Basophils % (auto) 0.7 %; Eosinophils # (auto) 0.37 K/uL (0.00-0.50); Eosinophils % (auto) 2.9 %; Hematocrit (blood only) 42.5 % (37.0-47.0); Immature Granulocytes # (auto) 0.06 K/uL (0.01-0.20); Immature Granulocytes % (auto) 0.5 %; Lymphocytes # (auto) 1.83 K/uL (1.20-3.40); Lymphocytes % (auto) 14.5 %; Mean Corpuscular Hemoglobin 28.9 pg (25.0-34.0); Mean Corpuscular Hgb Conc 32.9 g/dL (32.0-36.0); Mean Corpuscular Volume 87.8 fL (80.0-100.0); Mean Platelet Volume 10.4 fL (9.4-12.4); Monocytes # (auto) 0.89 K/uL (0.11-0.59); Neutrophils # (auto) 9.39 K/uL (1.40-6.50); Neutrophils % (auto) 74.4 %; Platelet Count 275 K/uL (130-400); RDW Coefficient of Variation 13.8 % (11.5-14.5); RDW Standard Deviation 44.7 fL (36.4-46.3); Red Blood Count 4.84 M/uL (4.20-5.40); White Blood Count 12.63 K/ul (4.8-10.8)
[2024-06-24 13:56] LABS: Alanine Aminotransferase 15 U/L (7-52); Albumin Globulin Ratio 2.3 (0.9-2); Albumin Level 5.2 gm/dl (3.4-5.0); Alkaline Phosphatase 61 U/L (34-104); Anion Gap 11 (3-11); Aspartate Aminotransferase 21 U/L (13-39); BUN Creatinine Ratio 26.4 (10-20); Bilirubin,Total 0.5 mg/dl (0.2-1.0); Blood Urea Nitrogen 23 mg/dl (6-23); Carbon Dioxide 27 mmol/L (21-32); Chloride 102 mmol/L (98-107); Est GFR (African American) 74.5 ml/min; Est GFR (Non-African American) 64.3 ml/min; Globulin 2.3 gm/dl (2.5-4.0); Glucose 90 mg/dl (70-99(Fasting)); Lipase 37 U/L (11-82); Sodium 140 mmol/L (136-145); Total Protein 7.5 gm/dl (6.0-8.3)
--- NOTE | 2024-06-24 14:54 | CT Scan Report ---
ABDOMEN AND PELVIS CT WITHOUT CONTRAST CT DOSE: 652.13 mGy.cm HISTORY: Acute left-sided flank pain left flank pain TECHNIQUE: Multiaxial CT images of the abdomen and pelvis were performed without contrast. A dose lo wering technique was utilized adhering to the principles of ALARA. COMPARISON STUDY: 03/21/2017 FINDINGS: Lung bases are generally clear. No free air. Unremarkable unenhanced spleen, pancreas and a drenal glands. Cholecystectomy with likely postsurgical biliary ductal dilation. Liver is within norm al limits. Unremarkable right kidney. 1.4 cm probable cyst of the posterior interpolar left kidney. There is mod erate left-sided hydroureteronephrosis with reactive perinephric and periureteral stranding secondary to an obstructing 7 x 6 x 9 mm left ureteral calculus at the level of L3-L4. Unremarkable urinary bl adder. Atherosclerosis of the aorta without aneurysm. No lymphadenopathy. Nonspecific distal esophageal wall thickening. There is no bowel obstruction or bowel wall thickening . Moderate colonic fecal retention. No CT evidence of acute appendicitis. Unremarkable soft tissues. No acute fracture. IMPRESSION: 1. Moderate left-sided hydroureteronephrosis secondary to an obstructing 9 mm left ureteral calculus at the level of L3-L4. 2. No bowel obstruction or bowel wall thickening. 3. Cholecystectomy. 4. Additional findings as above. ACT 112: Negative or not required by law. The above report was generated using voice recognition software. It may contain grammatical, syntax o r spelling errors. Electronically signed by: Gavin Addison M.D. 06/24/2024 2:53 PM
[2024-06-24 15:09] LABS: Appearance Urine Cloudy (Clear); Bacteria Urine Automated None Seen (None Seen); Bilirubin Urine Negative (Negative); Blood Urine 3+ (Negative); Cast Urine Automated 0-2 /lpf (0-2); Color Urine Yellow; Glucose Urine UA Negative (Negative); Ketones Urine 1+ (Negative); Leukocyte Esterase Urine 1+ (Negative); Nitrite Urine Negative (Negative); Protein Urine 2+ (Negative); RBC Urine Automated >20 /hpf (0-2); Specific Gravity Urine 1.018 (1.000-1.030); Urobilinogen Urine Negative (Negative); pH Urine 7.5 (4.5-7.5)
--- NOTE | 2024-06-24 15:29 | History & Physical Report ---
Date of Service June 24, 2024 Assessment & Plan (1) Renal colic: (2) Hydronephrosis: Plan: Patient presents with left-sided abdominal pain CBC revealed mild leukocytosis BUN/creatinine within normal limits Urinalysis shows 3+ blood, no bacteria seen CT abdomen pelvis shows moderate left sided hydroureteronephrosis secondary to obstructing 9 mm left ureteral calculus. ED physician discussed with urology; recommend n.p.o. from midnight for possible intervention Started on IV fluids with 70ml/hr of NS Pain control with Tylenol, morphine Urology on board; n.p.o. from midnight for possible intervention Chronic conditions; Dyslipidemiacontinue rosuvastatin GERDcontinue pantoprazole Mood disordercontinue home meds Time spent evaluating patient, direct bedside care, chart review, placing orders, interpretation of diagnostic studies, discussion with consultants, patient, and family members, as well as other required patient management activities is 60 minutes Please note the above document was generated using voice recognition software. It may contain grammatical, syntax or spelling errors. Any formal questions or concerns about the content, text or information contained within the body of this dictation should be directly addressed to the provider for clarification Plan Care coordinated with Dr. Rodriguez. I spent a total of 30 minutes coordinating, entering orders and providing care for this patient excluding time spent in the performance of separately billed services. History of Present Illness Chief Complaint: Renal colic Primary Care Provider: Devan Montes MD History obtained from chart review and interview with the patient. Past medical history of dyslipidemia, GERD, renal stone, mood disorder Patient presents with severe onset of left flank pain that radiates to left lower quadrant. The pain is intermittent, colicky; denies burning sensation or increase on urgency. No fever, chills. No nausea, vomitin, chest pain, shortness of breath. On presentation to the ED, she was hypertensive, afebrile and saturating well on room air CBC revealed mild leukocytosis BUN/creatinine within normal limits Urinalysis shows 3+ blood, no bacteria seen CT abdomen pelvis shows moderate left sided hydroureteronephrosis secondary to obstructing 9 mm left ureteral calculus. ED physician discussed with urology; recommend n.p.o. from midnight. Patient referred for admission. Allergies Allergy/AdvReac Type Severity Reaction Status Date / Time Sulfa (Sulfonamide Allergy Mild Rash Verified 06/24/24 15:51 Antibiotics) sulfamethoxazole Allergy Mild Rash Verified 06/24/24 15:51 trimethoprim Allergy Mild Rash Verified 06/24/24 15:51 adhesive Allergy Unknown Skin Verified 06/24/24 15:51 Irritation latex Allergy Unknown Rash Verified 06/24/24 15:51 Home Medications Medication Instructions Recorded Confirmed Type acetaminophen 325 mg tablet 650 mg PO QID PRN Pain 11/10/19 06/24/24 History (Tylenol) pantoprazole 40 mg tablet,delayed 40 mg PO BID 11/10/19 06/24/24 History release bupropion HCl 150 mg tablet,12 hr 150 mg PO QAM 03/20/23 06/24/24 History sustained-release desvenlafaxine 100 mg 100 mg PO QPM 03/20/23 06/24/24 History tablet,extended release 24 hr gabapentin 300 mg capsule 300 mg PO BID 03/20/23 06/24/24 History lamotrigine 100 mg tablet 100 mg PO QPM 03/20/23 06/24/24 History rosuvastatin 5 mg tablet 5 mg PO Q2D 03/20/23 06/24/24 History betamethasone dipropionate 0.05 % 1 applic topical BID PRN Skin 06/24/24 06/24/24 History topical cream Irritation vitamin B12 1,000 mcg-folic acid 1 minnie sublingual QAM 06/24/24 06/24/24 History 400 mcg sublingual lozenge Past Med/Surg History Problem List (Updated 06/24/24 @ 17:10 by Mikel Montalvo MD) Hydronephrosis (Acute) Renal colic (Acute) Left sided abdominal pain (Acute) Acute left flank pain (Acute) Encounter for pre-operative examination Acne (Chronic) hx Urinary problem (Chronic) Abdominal pain (Acute) Constipation (Acute) Dehydration (Acute) Vomiting and diarrhea (Acute) Psychological disorder Asthma (Chronic) nebulizer prn HTN (hypertension) (Acute) Medical History Hx of migraines Mild mitral valve prolapse Hyperlipidemia GERD (gastroesophageal reflux disease) Anxiety and depression Surgical History Hx of cataract extraction rt. History of esophagogastroduodenoscopy (EGD) Hx of colonoscopy Hx of non-cataract eye surgery Hx of wisdom tooth extraction Family History Other Heart disease Social History Smoking Status: Never smoker Second Hand Exposure: Yes (hx as child); Do You Dip or Chew Tobacco: No; Hx Alcohol Use: No Hx Substance Use: No Preferred Language: Urdu Communication Ability: Effective Recreation Technician Required: No Beliefs That Will Affect Care: None marital status: Current Living Situation: Spouse current occupational status: retired Feels Safe at Home: Yes Assistive Devices: Glasses Review of Systems Review of Systems: All systems reviewed & are unremarkable except as noted in Subjective At least ten systems reviewed and negative except as noted in the HPI. Physical Exam Physical Exam: Constitutional: WD/WN, vitals as above, Respiratory: normal respiratory effort, lungs clear to auscultation, no wheeze, rales, rhonchi. Normal insp/exp effort, no accessory muscle use Cardiovascular: RRR, no murmur, no edema Vessels: no JVD or carotid bruit Chest: normal inspection of chest Abdomen: Tenderness in left flank Musculoskeletal: no cyanosis or clubbing, extremities motor strength 5/5 Skin: no rashes, warm and dry normal turgor Neurologic: PERRL, EOMI, accommodation nl, no face palsy, no dysarthria CN's II- XI intact bilaterally and moves all extremities Psychiatric: A+Ox3, euthymic affect Results & Data Results & Data Vital Signs (Past 12 Hours) Vital Signs Temp Pulse Resp BP Pulse Ox O2 Del Method 06/24/24 15:00 81 16 148/78 H 99 06/24/24 14:30 79 17 142/75 H 100 06/24/24 14:00 76 19 164/125 H 100 06/24/24 13:32 83 21 185/94 H 100 06/24/24 13:26 78 20 96 Room Air 06/24/24 13:18 79 21 146/90 H 100 06/24/24 13:15 36.9 C 88 16 145/88 H 96 Room Air 06/24/24 13:12 76 Laboratory Results Short CBC 06/24/24 Range/Units 13:15 WBC 12.63 H (4.8-10.8) K/ul Hgb 14.0 (12.0-16.0) g/dl Hct 42.5 (37.0-47.0) % Plt Count 275 (130-400) K/uL BMP 06/24/24 13:15 Sodium 140 Potassium 4.0 Chloride 102 Carbon Dioxide 27 BUN 23 Creatinine 0.87 Glucose 90 Calcium 10.0 Liver Function 06/24/24 Range/Units 13:15 Total Bilirubin 0.5 (0.2-1.0) mg/dl AST 21 (13-39) U/L ALT 15 (7-52) U/L Alkaline Phosphatase 61 (34-104) U/L Albumin 5.2 H (3.4-5.0) gm/dl Urine 06/24/24 Range/Units 14:46 Urine Color Yellow Urine Appearance Cloudy A (Clear) Urine pH 7.5 (4.5-7.5) Ur Specific [place] 1.018 (1.000-1.030) Urine Protein 2+ H (Negative) Urine Glucose (UA) Negative (Negative) Diagnostic Findings Abdomen/Pelvis CT 06/24/24 13:[address] WITHOUT CONTRAST CT DOSE: 652.13 mGy.cm HISTORY: Acute left-sided flank pain left flank pain TECHNIQUE: Multiaxial CT images of the abdomen and pelvis were performed without contrast. A dose lowering technique was utilized adhering to the principles of ALARA. COMPARISON STUDY: 03/21/2017 FINDINGS: Lung bases are generally clear. No free air. Unremarkable unenhanced spleen, pancreas and adrenal glands. Cholecystectomy with likely postsurgical biliary ductal dilation. Liver is within normal limits. Unremarkable right kidney. 1.4 cm probable cyst of the posterior interpolar left kidney. There is moderate left-sided hydroureteronephrosis with reactive perinephric and periureteral stranding secondary to an obstructing 7 x 6 x 9 mm left ureteral calculus at the level of L3-L4. Unremarkable urinary bladder. Atherosclerosis of the aorta without aneurysm. No lymphadenopathy. Nonspecific distal esophageal wall thickening. There is no bowel obstruction or bowel wall thickening. Moderate colonic fecal retention. No CT evidence of acute appendicitis. Unremarkable soft tissues. No acute fracture. IMPRESSION: 1. Moderate left-sided hydroureteronephrosis secondary to an obstructing 9 mm left ureteral calculus at the level of L3-L4. 2. No bowel obstruction or bowel wall thickening. 3. Cholecystectomy. 4. Additional findings as above. ACT 112: Negative or not required by law. The above report was generated using voice recognition software. It may contain grammatical, syntax or spelling errors. Electronically signed by: Gavin Addison M.D. 06/24/2024 2:53 PM Code Status & VTE Plan VTE Prophylaxis Plan VTE Prophylaxis will be ordered: Yes (2) Hydronephrosis Hydronephrosis type: with renal calculous obstruction Qualified Code(s): N13.2 - Hydronephrosis with renal and ureteral calculous obstruction
[2024-06-24] MEDS: HYDROmorphone INJ 0.5 MG/0.5 ML SYR IV PRN (16:13)
[2024-06-24] MEDS: ALUMINUM/MAGNESIUM SUSP 30 ML UDC PO STA (17:43)
[2024-06-24] MEDS: SODIUM CHLORIDE 0.9% 1,000 ML IV SCH (17:47)
[2024-06-24] MEDS ORDERED: ACETAMINOPHEN 325 MG TAB PO PRN (18:38)
[2024-06-24] MEDS ORDERED: POLYETHYLENE (MIRALAX) 17 GM PACK PO PRN (18:38)
[2024-06-24] MEDS: lamoTRIgine 100 MG TAB PO SCH (20:01)
[2024-06-24] MEDS: GABAPENTIN 300 MG CAP PO SCH (20:01)
[2024-06-24] MEDS: PANTOprazole 40 MG TAB PO SCH (20:01)
[2024-06-24] MEDS: ACETAMINOPHEN 1,000 MG/100 ML VIAL IV PRN (20:08)
--- OUTSIDE RECORDS SUMMARY | 2024-06-24 21:02 | External Medical Summary | Summary of Care ---
Author Name Unknown Organization [facility] [address] [address] Phone [phone] Care Team Providers Care Physician Office Rep Name Role Phone Rosanne Munoz PA-C Primary Care Provider [phone] Encounter Details Date Type Department Care Team (Late st Contact Info) Description 06/09/2024 Orders Only [facility] [address] [place] [address] Devan Montes MD [address] [place] [address] Allergies Active Allergy Reactions Criticality Noted Date Comments Adhesive Tape 08/01/2004 Skin red and irritated Bactrim Diarrhea Medium 10/03/2012 C-diff Latex 08/01/2004 Turns skin red and itches Latex 11/11/2019 Other reaction(s): Rash Trimethoprim Low 11/11/2019 Other reaction(s): Rash documented as of this encounter (statuses as of 06/09/2024) Medications Medication Sig Dispensed Refills Start Date End Date Status buPROPion HCl ER (SR) 150 MG Oral Tablet Extended Release 12 Hour (WELLBUTRIN SR) Take 1 Tablet by mouth in the morning. 06/10/2020 Active B-12 1000 MCG Oral Capsule Take 1 Capsule by mouth in the morning. Active Acetaminophen 325 MG Oral Tablet Take 1 Tablet by mouth every 6 hours as needed. Active Gabapentin 300 MG Oral Capsule (Neurontin) Take 1 Capsule by mouth in the morning and 1 Capsule before bedtime. 04/12/2022 Active Betamethasone Dipropionate 0.05 % External Lotion (Diprosone) 09/19/2022 Active lamoTRIgine 100 MG Oral Tablet (LaMICtal) TAKE 1 TABLET BY MOUTH EVERYDAY AT BEDTIME 12/22/2022 Active Desvenlafaxine ER 100 MG Oral Tablet Extended Release 24 Hour Take 100 mg by mouth at bedtime. Active Pantoprazole Sodium 40 MG Oral Tablet Delayed Release (Protonix) Take 1 Tablet by mouth in the morning and 1 Tablet in the evening. 180 Tablet 3 04/25/2024 Active Rosuvastatin Calcium 5 MG Oral Tablet (Crestor) One tab by mouth daily 90 Tablet 2 06/04/2024 Active documented as of this encounter (statuses as of 06/09/2024) Active Problems Problem Noted Date Diagnosed Date Calculus of kidney 05/28/2024 Microhematuria 05/28/2024 Bipolar 1 disorder, mixed 06/26/2018 Right renal mass 07/12/2017 Overview: Has a likely right posterior upper pole 10mm AML (angiomyolipoma) looks like simple cyst on February 2017 CT with dye, and is bright white on renal ultrasound summer 2016. Gastroesophageal reflux disease without esophagi tis 06/07/2017 Dyslipidemia, goal LDL below 160 01/10/2013 History of basal cell carcinoma 10/03/2012 Overview: right neck 03/30 Generalized anxiety disorder 05/22/2011 Incisional hernia 06/09/2010 documented as of this encounter (statuses as of 06/09/2024) Resolved Problems Problem Noted Date Diagnosed Date Resolved Date Rhinitis, nonallergic 07/22/20192019 Acquired hypothyroidism 06/07/2017 07/0 02/2024 Dermatitis due to plant 04/21/201504/21 Psoriasis 04/21/2015 05/04/2017 Sprain, lumbosacral 08/01/2011 05/04/20 17 Spasm of muscle 08/01/2011 05/04/2017 ADVANCE DIRECTIVE INFORMATION 06/09/2010 08/31/2019 Overview: Yes, Patient instructed to provide copy of advance directive for provider to review and to be scanned into Electronic Medical Record Chronic cholecystitis 08/04/20042016 documented as of this encounter (statuses as of 06/09/2024) Immunizations Name Administration Dates Next Due COVID-19 mRNA, LNP-s, No Pre serve, 2-Dose Series (Pfizer) 12/30/2020,12/04/2020 Pneumococcal Conjugate Vacc, 13 Valent (Prevnar) 01/13/2016 Pneumococcal Polysaccharide PPV23 (Pneumovax) 09/05/2012 Seasonal Influenza, PF, 6 M & above, IM , (FluLaval or Fluzone) 07/29/2019 Seasonal Influenza, QUAD, wi th Preserv, 6 mons & Above, 0.5 mL, IM 09/10/2017 Seasonal Influenza, Quadriva lent Hd (Fluzone Hd) 07/14/2021(Deferred: Patient Refused) Seasonal Influenza, Quadriva lent Hd, 65+ Yrs 08/05/2022 Seasonal Influenza, Quadriva lent, No Preserve, IM 07/19/2016,08/01/2015 Seasonal Influenza, Recombin ant, RIV4, PF, (Flublock) 07/26/2020 Seasonal Influenza, Split, I IV3, With Preserve, Inj 06/08/2014,08/02/2012,08/03/2011,08/08 Seasonal Influenza, Trivalen t, High Dose, No Preserve, IM 07/24/2018 TD, Preservative Free 04/27/2021 TDAP, Age 7 and older, IM (Adacel) 09/20/2010 Varicella Zoster Vaccine (Adult) 07/31/2009 Zoster Vaccine Recombinant (Shingrix) 08/13/2020 ,12/29/2019 documented as of this encounter Social History Tobacco Use Types Packs/Day Years Used Date Smoking Tobacco: Never Passive Smoke Exposure: Past Smokeless Tobacco: Never Comments:no passive smoke Alcohol Use Standard Drinks/Week Comments No 0 (1 standard drink = 0.6 oz pur e alcohol) PHQ-2 Answer Date Recorded PHQ-2 Score 0 12/23/2019 Hunger Vital Sign Answer Date Recorded Within the past 12 months, y ou worried that your food would run out before you got the money to buy more. Never true 04/25/20 24 Within the past 12 months, t he food you bought just didn't last and you didn't have money to get more. Never true 04/25/2024 Childcare Answer Date Recorded Do you feel overwhelmed with taking care of a child, family member or friend? No 04/25/2024 Does your family need help f inding childcare? (Household - for ages 0-17 years) Not on file 04/25/2024 Clothing Answer Date Recorded Have you been unable to get clothing when it was really needed? No 04/25/2024 Is your family able to get c lothes or diapers when needed? (Household - for ages 0-17 years) Not on file 04/25/2024 Personal Safety Answer Date Recorded Do you feel unsafe or have concerns for your saf ety? No 04/25/2024 Do you have concerns for you r family's safety? (Household - for ages 0-17 years) Not on file 04/25/2024 Utilities Answer Date Recorded Do you have trouble paying y our heating, water, or electric bill? No 04/25/2024 Is your family able to pay t he heat, water, or electric bill? (Household - for ages 0-17 years) Not on file 04/25/2024 Does your family have access to good internet? (Household - for ages 0-17 years) Not on file 04/25/2024 Employment Status Answer Date Recorded Are you unemployed or without regular income? No 04/25/2024 Does the household have a re gular source of income? (Household - for ages 0-17 years) Not on file 04/25/2024 Social Connections Answer Date Recorded How often do you feel lonely or isolated from th ose around you? Never 04/25/2024 Financial Resource Strain Answer Date R ecorded Do you have any trouble payi ng for your medications, or do you think you might in the future? No 04/25/2024 Does your family have troubl e paying for medicine? (Household - for ages 0-17 years) Not on file 04/25/2024 Transportation Needs Answer Date Record ed Do you have trouble getting a ride to medical visits or work? (Adult - for ages 18 years and over) Not on file 04/25/2024 Does your family have a hard time getting a ride to doctors visits? (Household - for ages 0-17 years) Not on file 04/25/2024 Has lack of transportation k ept you from medical appointments, meetings, work, or from getting things needed for daily living? Check all that apply. No 04/25/2024 Do you (or your family) have trouble finding or paying for a ride (transportation)? (Household - for ages 0-17 years) Not on file 04/25/2024 Housing Stability Answer Date Recorded Do you currently live in a s helter or have no steady place to sleep at night? No 04/25/2024 Do you think you are at risk of becoming homeless? (Adult - for ages 18 years and over) Not on file 04/25/2024 Does your family worry about paying for your home or becoming homeless? (Household - for ages 0-17 years) Not on file 0 04/25/2024 Are you homeless or worried that you might be in the future? No 04/25/2024 Are you (or your family) torrey eless or worried that you might be in the future? (Household - for ages 0-17 years) Not on file Food Insecurity Answer Date Recorded Do you need food for this week? No 04/25/2024 Are you able to get enough f ood for your family? (Household - for ages 0-17 years) Not on file 04/25/2024 Does your family need food t his week? (Household - for ages 0-17 years) Not on file 04/25/2024 Do you always have enough fo od for your family? (Household - for ages 0-17 years) Not on file 04/25/2024 Sex and Gender Information Value Date Recorded Sex Assigned at Female 12/23/2019 4:00 PM EST Gender Identity Female 12/23/2019 4:00 PM EST Sexual Orientation Choose not to disclose 2019 4:00 PM EST Job Start Date Occupation Industry Not on file Not on file Not on file documented as of this encounter Plan of Treatment Upcoming Encounters Date Type Department Care Team (Latest Contact Info) Description 07/07/2024 10:43 AM EDT Hospital Encounter OR [facility], Operating Room [facility] [address] [facility] [place] [address] Jeremy Tariq MD [address] [place] [address] 07/07/2024 10:43 AM EDT - 07/07/2024 12:09 PM EDT Surgery OR [facility], Operating Room [facility] [address] [place] [address] Jeremy Tariq MD [address] [place] [address] CYSTOURETHROSCOPY URETEROSCOPY WITH LITHOTRIPSY AND STENT INSERTION 07/14/2024 3:15 PM EDT Office Visit Urology, [facility] [address] [place] [address] Jeremy Tariq MD [address] [place] [address] 07/28/2024 7:15 AM EDT Cardiac Studies Cardiac Studies, [facility] [address] [place] [address] 08/04/2024 9:45 AM EDT Office Visit Dermatology [facility] [address] [facility] [place] [address] Po Mason MD [address] [facility] [place] [address] 08/12/2024 8:00 AM EDT Office Visit Cardiology, [facility] [address] [place] [address] Tanika Dumas CRNP [address] [place] [address] 10/06/2024 10:15 AM EST Hospital Encounter ENDO [facility], Endoscopy Room [facility] [address] [place] [phone] Abeba Cai DO [address] [place] [address] 10/06/2024 10:15 AM EST - 10/06/2024 10:45 AM EST Surgery ENDO [facility], Endoscopy Room [facility] [address] [place] [phone] [place] Abeba GarciaDO [address] [place] [address] COLONOSCOPY FLEXIBLE PROXIMAL DIAGNOSTIC 04/30/2025 1:00 PM EDT Office Visit [facility] [address] [place] [phone] Rosanne Munoz PA-C [address] [place] [address] Scheduled Procedures Name Priority Associated Diagnoses Date/Ti me CYSTOURETHROSCOPY URETEROSCO PY WITH LITHOTRIPSY AND STENT INSERTION Calculus of kidney Microhematuria 07/07/2024 10:43 AM EDT COLONOSCOPY FLEXIBLE PROXIMA L DIAGNOSTIC Recall History of colon polyps 10/06/2024 10:15 AM EST Health Maintenance Due Date Last Done Comments Adult Wellness Visit 2013 DXA Scan 12/01/2020 12/01/2013, 11/22, 09/30/2010 COVID-19 Vaccine ( - season) 2023 12/30/2020, 12/04/2020 Influenza Vaccine (FLU shot) (#1) 2024 08/05/2022, 07/26/2020, 07/29/2019, Additional history exists Colonoscopy 07/15/2024 07/15/2019, 06/23, 05/01/2014, Additional history exists DTaP,Tdap,and Td Vaccines (3 - Td or Tdap) 04/27/2031 04/27/2021, 09/20/2010 Pneumococcal Vaccine: 65+ Years Completed 01/13/2016, 09/05/2012 RETIRED - COLONOSCOPY-EVERY 5 YRS AGES 18-100 Discontinued 07/15/2019, 07/15/2019, 05/01/2014, Additional history exists Zoster Vaccines Completed 08/13/2020, 06/2020, 07/31/2009 HPV (Gardasil) Vaccine Aged Out No lo nger eligible based on patient's age to complete this topic Hepatitis B Vaccine Aged Out No longe r eligible based on patient's age to complete this topic MENINGOCOCCAL (MENACTRA/MENVEO) Aged Out No longer eligible based on patient's age to complete this topic documented as of this encounter Medical Devices Not on filedocumented as of this encounter Procedures Procedure Name Priority Date/Time Associated Diagnosis Comments MAMMOGRAM SCREENING BILATERAL Routine 06/06/2024 documented in this encounter Results * MAMMOGRAM SCREENING BILATERAL (06/06/2024) Anatomical Region Laterality Modality Breast Bilateral Other 06/06/2024 Devan Montes MD RAD MAMMOGRAPHY documented in this encounter Care Teams Physician Office Rep Relationship Specialty Start Date End Date Rosanne Munoz PA-C [address] [place] [address] PCP - General Physician Revenue Field Agent 05/04/24 documented as of this encounter
--- OUTSIDE RECORDS SUMMARY | 2024-06-24 21:02 | External Medical Summary | Summary of Care ---
Author Name Unknown Organization [facility] Address [address] [facility] [place] [address] Phone [phone] Care Team Providers Care Registered Land Surveyor Name Role Phone Rosanne Munoz PA-C Primary Care Provider [phone] Reason for Referral * Evaluate & Treat - Unlimited Visits (Within 3 days (urgent)) - Authorized Specialty Diagnoses / Procedures Referred By Elaine feldman Referred To Contact Podiatry Diagnoses Right foot pain Localized swelling of right foot Abrasion of sole of foot Kera Scherer MD [address] [place] [address] Referral ID Status Reason Start Date Expiration Date Visits Requested Visits Authorized [id number] Authorized Specialty Services Required 06/18/2024 999 999 Question Answer Referral Priority Within 3 days (urgent) Where should this appointment be scheduled? [facility] Which condition are you referring this patient for? General Foot Pain - r/o fb Reason for Visit * Reason Comments Pain Right foot Encounter Details Date Type Department Care Team (Late st Contact Info) Description 06/18/2024 6:40 PM EDT Office Visit General Internal Medicine [place] [facility] [place] [address] [place] [phone] Kera Scherer MD [address] [place] [address] Right foot pain*; Localized swelling of right foot; Abrasion of sole of foot; Nonrheumatic aortic valve stenosis Allergies Active Allergy Reactions Criticality Noted Date Comments Adhesive Tape 08/01/2004 Skin red and irritated Bactrim Diarrhea Medium 10/03/2012 C-diff Latex 08/01/2004 Turns skin red and itches Latex 11/11/2019 Other reaction(s): Rash Trimethoprim Low 11/11/2019 Other reaction(s): Rash documented as of this encounter (statuses as of 06/18/2024) Medications Medication Sig Dispensed Refills Start Date [...] as of this encounter (statuses as of 06/18/2024) Active Problems Problem Noted Date Diagnosed Date [...] as of this encounter (statuses as of 06/18/2024) Resolved Problems Problem Noted Date Diagnosed Date Resolved Date Rhinitis, nonallergic 07/22/20192019 Acquired hypothyroidism 06/07/2017 07/0 02/2024 Dermatitis due to plant 04/21/201504/21 Psoriasis 04/21/2015 05/04/2017 Sprain, lumbosacral 08/01/2011 05/04/20 Spasm of muscle 08/01/2011 05/04/2017 ADVANCE DIRECTIVE INFORMATION 06/09/2010 08/31/2019 Overview: Yes, Patient instructed to provide copy of advance directive for provider to review and to be scanned into Electronic Medical Record Chronic cholecystitis 08/04/20042016 documented as of this encounter (statuses as of 06/18/2024) Immunizations Name Administration Dates Next Due COVID-19 [...] on file documented as of this encounter Last Filed Vital Signs Vital Sign Reading Time Taken Comments Blood Pressure 130/72 06/18/2024 6:39 PM EDT Pulse 84 06/18/2024 6:39 PM EDT Temperature 36.7 C (98 F) 06/18/2024 6:39 PM EDT Respiratory Rate 18 06/18/2024 6:39 PM EDT Oxygen Saturation - - Inhaled Oxygen Concentration - - Weight - - Height - - Body Mass Index - - documented in this encounter Progress Notes * Kera Scherer MD - 06/18/2024 6:46 PM EDT SUBJECTIVE: Josselyn Willis is a 78 year old female. Chief Complaint Patient presents with Pain Right foot Nursing Notes: Clau Link LPN 06/18/24 [id number] Signed Patient has a dark spot on the bottom of her right foot. First noticed it about 2 weeks ago. Some days it's larger and more painful than others. Last night it was almost unbearable, today it's not sobad. HPI: Patient presents today for acute appointment with symptoms of noticing a dark spot on the bottom of her right sole 2 weeks ago, is a slight swelling around it, hurts to the touch and also with ambulation. No discharge from the site. Denies stepping on any object. No fever or chills. TD utd She is scheduled to have urology surgery 07/07/2024 Patient Active Problem List Diagnosis Incisional hernia Generalized anxiety disorder History of basal cell carcinoma Dyslipidemia, goal LDL below 160 Gastroesophageal reflux disease without esophagitis Right renal mass Bipolar 1 disorder, mixed (HCC) Calculus of kidney Microhematuria Current Outpatient Medications Medication Sig Dispense Refill buPROPion HCl ER (SR) 150 MG Oral Tablet Extended Release 12 Hour (WELLBUTRIN SR) Take 1 Tablet by mouth in the morning. B-12 1000 MCG Oral Capsule Take 1 Capsule by mouth in the morning. Acetaminophen 325 MG Oral Tablet Take 1 Tablet by mouth every 6 hours as needed. Gabapentin 300 MG Oral Capsule (Neurontin) Take 1 Capsule by mouth in the morning and 1 Capsule before bedtime. Betamethasone Dipropionate 0.05 % External Lotion (Diprosone) lamoTRIgine 100 MG Oral Tablet (LaMICtal) TAKE 1 TABLET BY MOUTH EVERYDAY AT BEDTIME Desvenlafaxine ER 100 MG Oral Tablet Extended Release 24 Hour Take 100 mg by mouth at bedtime. Pantoprazole Sodium 40 MG Oral Tablet Delayed Release (Protonix) Take 1 Tablet by mouth in the morning and 1 Tablet in the evening. 180 Tablet 3 Rosuvastatin Calcium 5 MG Oral Tablet (Crestor) One tab by mouth daily 90 Tablet 2 No current facility-administered medications for this visit. Review of patient's allergies indicates: Allergen Reactions Bactrim Diarrhea C-diff Adhesive Tape Skin red and irritated Latex Turns skin red and itches Latex Other reaction(s): Rash Trimethoprim Other reaction(s): Rash OBJECTIVE: BP 130/72 | Pulse 84 | Temp 36.7 C (98 F) (Tympanic) | Resp 18 PHYSICAL EXAM: General: alert, healthy, no distress, well developed Heart: regular rhythm and rate,3/6 ESM base Lungs: lungs clear to auscultation Extremities: no edema Rt foot--on sole lateral edge is a 4 mm firm swelling with central dark spot, TTT, no erythema ASSESSMENT/PLAN: Right foot pain (Primary) - PODIATRY REFERRAL OP - XR FOOT 3 OR MORE VIEWS; Future; Expected date: 06/19/2024 Localized swelling of right foot - PODIATRY REFERRAL OP - XR FOOT 3 OR MORE VIEWS; Future; Expected date: 06/19/2024 Abrasion of sole of foot - PODIATRY REFERRAL OP - XR FOOT 3 OR MORE VIEWS; Future; Expected date: 06/19/2024 Advised to apply warm saline compress to the affected areas for 5 minutes 2-3 times daily to softenarea to see if anything would extrude, use callus protectors for ambulation, x-ray to rule out foreign body, refer to podiatry Nonrheumatic aortic valve stenosis Follow Up: Return if symptoms worsen or fail to improve. (This note was completed using the dictation program Fluency Direct. As such, there may be misspellings, word substitutions, or other variations that should not change the essence of the clinical content of this encounter note. If there is need for further clarification, please direct questions to the provider listed above.) Patient and / caregiver verbalize understanding of above instructions and agrees with plan of care. Kera Scherer MD 06/18/2024 documented in this encounter Nursing Notes * Clau Link LPN - 06/18/2024 6:38 PM EDT Patient has a dark spot on the bottom of her right foot. First noticed it about 2 weeks ago. Some days it's larger and more painful than others. Last night it was almost unbearable, today it's not sobad. documented in this encounter Plan of Treatment Upcoming Encounters Date Type Department Care Team (Latest Contact Info) Description 07/07/2024 9:40 AM EDT Hospital Encounter OR [facility], Operating Room [facility] [address] [place] [phone] Jeremy Tariq MD [address] [place] [address] 07/07/2024 9:40 AM EDT - 07/07/2024 11:06 AM EDT Surgery OR [facility], Operating Room [facility] [address] [place] [phone] Jeremy Tariq MD [address] [place] [address] CYSTOURETHROSCOPY URETEROSCOPY WITH LITHOTRIPSY AND STENT INSERTION 07/14/2024 3:15 PM EDT Office Visit Urology, [facility] [address] [address] Jeremy Tariq MD [address] [place] [address] 07/28/2024 7:15 AM EDT Cardiac Studies Cardiac Studies, [facility] [address] [place] [address] 08/04/2024 9:45 AM EDT Office Visit Dermatology [facility] [address] [facility] [place] [address] Po Mason MD [address] [facility] [place] [address] 08/12/2024 8:00 AM EDT Office Visit Cardiology, [facility] [address] [place] [address] Tanika Dumas CRNP [address] [place] [address] 10/06/2024 10:15 AM EST Hospital Encounter ENDO [facility], Endoscopy Room [facility] [address] [place] [phone] Abeba Cai, [address] [place] [address] 10/06/2024 10:15 AM EST - 10/06/2024 10:45 AM EST Surgery ENDO [facility], Endoscopy Room [facility] [address] [place] [phone] Abeba Cai, [address] [place] [address] COLONOSCOPY FLEXIBLE PROXIMAL DIAGNOSTIC 04/30/2025 1:00 PM EDT Office Visit [facility] [address] [place] [facility] [phone] Rosanne Munoz PALuis AC [address] [place] [address] Scheduled Orders Name Type Priority Associated Diagnoses Orde r Schedule XR FOOT 3 OR MORE VIEWS Medical Imaging STAT Right foot pain Localized swelling of right foot Abrasion of sole of foot Expected: 06/19/2024, Expires: 07/19/2025 Scheduled Procedures Name Priority Associated Diagnoses Date/Ti me CYSTOURETHROSCOPY URETEROSCO PY WITH LITHOTRIPSY AND STENT INSERTION Calculus of kidney Microhematuria 07/07/2024 9:40 AM EDT COLONOSCOPY FLEXIBLE PROXIMA L DIAGNOSTIC Recall History of colon polyps 10/06/2024 10:15 AM EST Scheduled Referrals Name Type Priority Associated Diagnoses Orde r Schedule PODIATRY REFERRAL OP Referral Within 3 days (urgent) Right foot pain Localized swelling of right foot Abrasion of sole of foot Ordered: 06/18/2024 Health Maintenance Due Date Last Done Comments Adult Wellness Visit 2013 DXA Scan 12/01/2020 12/01/2013, 11/22, 09/30/2010 COVID-19 Vaccine ( - season) 2023 12/30/2020, 12/04/2020 Influenza Vaccine (FLU shot) (#1) 2024 08/05/2022, 07/26/2020, 07/29/2019, Additional history exists Colonoscopy 07/15/2024 07/15/2019, 06/23, 05/01/2014, Additional history exists DTap/Tdap Vaccines (3 - Td or Tdap) 04/27/2031 [...] Not on filedocumented as of this encounter Visit Diagnoses Diagnosis Calculus of kidney Microhematuria Microscopic hematuria Right foot pain- Primary Pain in limb Localized swelling of right foot Abrasion of sole of foot Nonrheumatic aortic valve stenosis Aortic valve disorders Calculus of kidney Microhematuria Microscopic hematuria History of colon polyps Personal history of colonic polyps documented in this encounter Care Teams Registered Land Surveyor Relationship Specialty Start Date End Date Rosanne Munoz PA-C [address] [facility] [place] [address] PCP - General Physician Remote Inpatient Coder 05/04/24 documented as of this encounter"
[2024-06-24] MEDS: MoRPHine SULFATE 2 MG/ML CARP IV PRN (22:52)
[2024-06-25 06:43] LABS: Hematocrit (blood only) 37.5 % (37.0-47.0); Hemoglobin 12.5 g/dl (12.0-16.0); Mean Corpuscular Hemoglobin 30.4 pg (25.0-34.0); Mean Corpuscular Hgb Conc 33.3 g/dL (32.0-36.0); Mean Corpuscular Volume 91.2 fL (80.0-100.0); Mean Platelet Volume 11.3 fL (9.4-12.4); Platelet Count 241 K/uL (130-400); RDW Coefficient of Variation 14.1 % (11.5-14.5); RDW Standard Deviation 47.3 fL (36.4-46.3); Red Blood Count 4.11 M/uL (4.20-5.40); White Blood Count 7.71 K/ul (4.8-10.8)
[2024-06-25 07:17] LABS: BUN Creatinine Ratio 21.6 (10-20); Calcium 8.3 mg/dl (8.6-10.3); Creatinine Clr Calc Pharmacy 41.6 ml/min; Est GFR (African American) 61.4 ml/min; Potassium 4.4 mmol/L (3.5-5.1)
[2024-06-25] MEDS: CYANOCOBALAMIN (B-12) 500 MCG TABLET PO SCH (08:05)
[2024-06-25] MEDS: buPROPion SR 150 MG TABCR PO SCH (08:05)
[2024-06-25] MEDS: ROSUVASTATIN CALCIUM 5 MG TAB PO SCH (08:05)
[2024-06-25] MEDS: FOLIC ACID 400 MCG TAB PO SCH (08:05)
--- NOTE | 2024-06-25 08:54 | Urology Consultation ---
<Statement entered by Ben Reese MD - 06/25/24 12:36> I have discussed Ms. Willis's case with TAO Drew and agree with the above documentation. Due to intractable pain from her left ureteral stone, we will plan on cystoscopy, left retrograde pyelogram and left ureteral stent placement. -Ben Reese MD. Date of Consultation June 25, 2024 Assessment & Plan (1) Acute left flank pain: (2) Hydronephrosis: (3) Ureteral stone: Plan 79 yo/F admitted with intractable left-sided pain secondary to an obstructing 9 mm left ureteral stone. - Afebrile with stable vitals. - Labs today show no leukocytosis and normal renal function. - Urinalysis not suggestive of infection. - She continues to have left sided pain, has been managing with medication. - We discussed options for acute stone management with cystoscopy and stent rubio cement. Ureteral stents were discussed as well as postoperative issues and pain management. She is aware a second procedure will be needed for stone treatment. Risks and benefits were discussed. All questions were answered. - Will plan to proceed to the OR today for cystoscopy and left ureteral stent placement with Dr. Reese. - Risks and benefits to be reviewed with patient by Dr. Reese. OR notified. - Keep NPO. - Continue supportive care. - Will cover with Ancef preoperatively. - Urology to follow. History of Present Illness Attending Physician: Tee Scherer DO History of Present Illness 79-year-old female who presented to [facility] emergency department on 06/24/2024 with severe onset of left flank pain. Patient reported a known left ureteral stone for which she is scheduled for outpatient surgery with [facility] urology in approximately 2 weeks. Due to the severe onset of flank pain she presented to the emergency department. On arrival she was afebrile and hypertensive. Labs showing mild leukocytosis and normal renal function. Urinalysis with 3+ blood, 1+ LE, 610 WBC, >20 RBC, 35 epithelial cells, negative bacteria, negative nitrite. CT abdomen pelvis obtained and shows moderate left-sided hydronephrosis secondary to an obstructing 9 mm left ureteral stone. ED course included IV fluids, Toradol, Dilaudid, Zofran. She was admitted to medicine service. Patient seen at bedside today. Awake, resting in bed on arrival. No acute distress. Still with left-sided pain, managing with medication. Denies fever, chills, nausea, vomiting. Voiding without issue. Denies hematuria or dysuria. Has been NPO. This is her first kidney stone. She tells me she is scheduled for outpatient procedure with Dr. Tariq of [facility] urology in 2 weeks. Allergies Allergy/AdvReac Type Severity Reaction Status Date / Time Sulfa (Sulfonamide Allergy Mild Rash Verified 06/24/24 15:51 Antibiotics) sulfamethoxazole Allergy Mild Rash Verified 06/24/24 15:51 trimethoprim Allergy Mild Rash Verified 06/24/24 15:51 adhesive Allergy Unknown Skin Verified 06/24/24 15:51 Irritation latex Allergy Unknown Rash Verified 06/24/24 15:51 Home Medications Medication Instructions Recorded Confirmed Type acetaminophen 325 mg tablet 650 mg PO QID PRN Pain 11/10/19 06/24/24 History (Tylenol) pantoprazole 40 mg tablet,delayed 40 mg PO BID 11/10/19 06/24/24 History release bupropion HCl 150 mg tablet,12 hr 150 mg PO QAM 03/20/23 06/24/24 History sustained-release desvenlafaxine 100 mg 100 mg PO QPM 03/20/23 06/24/24 History tablet,extended release 24 hr gabapentin 300 mg capsule 300 mg PO BID 03/20/23 06/24/24 History lamotrigine 100 mg tablet 100 mg PO QPM 03/20/23 06/24/24 History rosuvastatin 5 mg tablet 5 mg PO Q2D 03/20/23 06/24/24 History betamethasone dipropionate 0.05 % 1 applic topical BID PRN Skin 06/24/24 06/24/24 History topical cream Irritation vitamin B12 1,000 mcg-folic acid 1 minnie sublingual QAM 06/24/24 06/24/24 History 400 mcg sublingual lozenge Patient History Medical History Hx of migraines Mild mitral valve prolapse Hyperlipidemia GERD (gastroesophageal reflux disease) Anxiety and depression Surgical History Hx of cataract extraction rt. History of esophagogastroduodenoscopy (EGD) Hx of colonoscopy Hx of non-cataract eye surgery Hx of wisdom tooth extraction Family History Other Heart disease Social History Smoking Status: Never smoker Second Hand Exposure: Yes (hx as child); Do You Dip or Chew Tobacco: No; Hx Alcohol Use: No Hx Substance Use: No Preferred Language: Gabonese Communication Ability: Effective Call Center Coordinator Required: No Beliefs That Will Affect Care: None marital status: Current Living Situation: Spouse Current Living Situation Comment: at home with current occupational status: retired Other Information That Helps Us Care for You: No Feels Safe at Home: Yes Safety Concerns: Feels Safe At This Time Assistive Devices: None Review of Systems Review of Systems: All systems reviewed & are unremarkable except as noted in HPI & below Physical Exam Constitutional: no acute distress Respiratory: no respiratory distress and no labored breathing Musculoskeletal: Head/Neck/Chest: normocephalic Skin: No visible rashes or lesions to exposed skin areas Neurologic: moves all extremities and awake Psychiatric: A+Ox3, euthymic affect Results & Data Vital Signs (Past 12 Hours) Vital Signs Temp Pulse Resp BP Pulse Ox O2 Del Method 06/25/24 07:51 36.9 C 71 18 136/72 100 Room Air PG Care Time/CCT Total # of Minutes Spent Total Time Spent with Patient: Total time spent is greater than 50% in coordination of care (as documented) at patient's floor/unit and/or counseling patient: Coding Level of Care Code 64657 INT INP/OBS CARE 2/55MIN Diagnoses Acute left flank pain R10.9 Hydronephrosis N13.2 Hydronephrosis type: with renal calculous obstruction Ureteral stone N20.1 (2) Hydronephrosis Hydronephrosis type: with renal calculous obstruction Qualified Code(s): N13.2 - Hydronephrosis with renal and ureteral calculous obstruction
[2024-06-25] MEDS: KETOROLAC TROMETHAMINE 15 MG/ML VIAL IV ONE (09:51)
[2024-06-25] MEDS ORDERED: fentaNYL citrate PF 100 MCG/2 ML VIAL ONE (11:42)
[2024-06-25] MEDS ORDERED: MIDAZOLAM HCL 1 MG/ML 2ML VIAL ONE (11:42)
[2024-06-25] MEDS ORDERED: PROPOFOL IV EMULSION 10 MG/ML 20 ML VIAL IV ONE ×3 (11:42→11:43)
[2024-06-25] MEDS ORDERED: fentaNYL citrate PF 100 MCG/2 ML VIAL IV PRN (11:50)
[2024-06-25] MEDS ORDERED: ONDANSETRON INJ 2 MG/ML 2 ML VIAL IV PRN (11:50)
[2024-06-25] MEDS ORDERED: ATROPINE SULFATE 0.1 MG/ML 10ML SYR IV PRN (11:50)
[2024-06-25] MEDS ORDERED: ePHEDrine sulfate 50 MG/ML AMP IV PRN (11:50)
--- NOTE | 2024-06-25 11:50 | Anesthesiology Consultation ---
Date of Service June 25, 2024 Assessment & Plan (1) Encounter for pre-operative examination: Chart Review Chart Review: Acceptable Risk for Surgery and Patient NOT seen in Pre Admission Testing Consults Requested none History Surgery Operation Date: 06/25/24 08:40 Proposed Procedures p Cystoscopy, Retrograde Pyelogram, Left Ureteral Stent Stent Placement - Ben Reese MD Height/Weight Height: 5 ft 5 in Weight: 64.1 kg Allergies Allergy/AdvReac Type Severity Reaction Status Date / Time Sulfa (Sulfonamide Allergy Mild Rash Verified 06/24/24 15:51 Antibiotics) sulfamethoxazole Allergy Mild Rash Verified 06/24/24 15:51 trimethoprim Allergy Mild Rash Verified 06/24/24 15:51 adhesive Allergy Unknown Skin Verified 06/24/24 15:51 Irritation latex Allergy Unknown Rash Verified 06/24/24 15:51 Medications Home Medications Medication Instructions Recorded Confirmed Last Taken acetaminophen 325 mg tablet 650 mg PO QID PRN Pain 11/10/19 06/24/24 11/10/19 12:00 (Tylenol) 650 MG pantoprazole 40 mg tablet,delayed 40 mg PO BID 11/10/19 06/24/24 04/02/23 release bupropion HCl 150 mg tablet,12 hr 150 mg PO QAM 03/20/23 06/24/24 04/16/23 sustained-release desvenlafaxine 100 mg 100 mg PO QPM 03/20/23 06/24/24 Unknown tablet,extended release 24 hr gabapentin 300 mg capsule 300 mg PO BID 03/20/23 06/24/24 04/16/23 lamotrigine 100 mg tablet 100 mg PO QPM 03/20/23 06/24/24 Unknown rosuvastatin 5 mg tablet 5 mg PO Q2D 03/20/23 06/24/24 06/24/24 betamethasone dipropionate 0.05 % 1 applic topical BID PRN Skin 06/24/24 06/24/24 Unknown topical cream Irritation vitamin B12 1,000 mcg-folic acid 1 minnie sublingual QAM 06/24/24 06/24/24 Unknown 400 mcg sublingual lozenge Active Medications Generic Name Dose Route Start Last Admin Trade Name Freq PRN Reason Stop Dose Admin Bupropion HCl 150 mg 06/25/24 09:00 06/25/24 08:05 Bupropion Sr 150 Mg Tabcr PO 07/25/24 08:59 150 mg QAM KARI Administration Cyanocobalamin 1,000 mcg 06/25/24 09:00 06/25/24 08:05 Cyanocobalamin (B-12) 500 Mcg Tablet PO 07/25/24 08:59 1,000 mcg QAM KARI Administration Folic Acid 400 mcg 06/25/24 09:00 06/25/24 08:05 Folic Acid 400 Mcg Tab PO 07/25/24 08:59 400 mcg QAM KARI Administration Gabapentin 300 mg 06/24/24 21:00 06/25/24 08:04 Gabapentin 300 Mg Cap PO 07/24/24 20:59 300 mg BID KARI Administration Sodium Chloride 1,000 mls @ 70 mls/hr 06/24/24 17:00 06/25/24 06:22 Nss IV 07/24/24 16:59 70 mls/hr .[id number] KARI Administration Acetaminophen 1,000 mg in 100 mls @ 400 mls/hr 06/24/24 18:38 06/24/24 20:25 Ofirmev IV 06/27/24 18:37 Infused Q8H PRN Infusion Mild Pain (Scale 1, 2, 3) Lamotrigine 100 mg 06/24/24 21:00 06/24/24 20:01 Lamotrigine 100 Mg Tab PO 07/24/24 20:59 100 mg QPM KARI Administration Protocol Miscellaneous 1 each 06/25/24 00:00 06/25/24 08:03 Desvenlafaxine 100mg--Order Awaiting Action N/A 07/25/24 00:00 Not Given QS KARI Morphine Sulfate 2 mg 06/24/24 18:38 06/25/24 08:32 Morphine Sulfate 2 Mg/Ml Carp IV 07/08/24 18:37 2 mg Q3H PRN Administration Severe Pain (Scale 7, 8, 9,10) Pantoprazole Sodium 40 mg 06/24/24 21:00 06/25/24 08:04 Pantoprazole 40 Mg Tab PO 07/24/24 20:59 40 mg BID KARI Administration Rosuvastatin Calcium 5 mg 06/25/24 09:00 06/25/24 08:05 Rosuvastatin Calcium 5 Mg Tab PO 07/25/24 08:59 5 mg Q2D@0900 KARI Administration Past Medical History Medical History Hx of migraines Mild mitral valve prolapse Hyperlipidemia GERD (gastroesophageal reflux disease) Anxiety and depression Past Family History Family History Other Heart disease Past Surgical History Surgical History Hx of cataract extraction rt. History of esophagogastroduodenoscopy (EGD) Hx of colonoscopy Hx of non-cataract eye surgery Hx of wisdom tooth extraction Social History Smoking Status: Never smoker Do You Dip or Chew Tobacco: No Hx Alcohol Use: No Hx Substance Use: No substance use type: does not use Physical Exam Vital Signs Last Vital Signs Temp 98.4 F 06/25/24 07:51 Pulse 71 06/25/24 07:51 Resp 18 06/25/24 07:51 BP 136/72 06/25/24 07:51 Pulse Ox 100 06/25/24 07:51 O2 Del Method Room Air 06/25/24 07:51 Testing Laboratory Results 06/25/24 06:10 06/25/24 06:10 Urine Color Yellow 06/24/24 14:46 Urine Appearance Cloudy (Clear) A 06/24/24 14:46 Urine pH 7.5 (4.5-7.5) 06/24/24 14:46 Ur Specific [place] 1.018 (1.000-1.030) 06/24/24 14:46 Urine Protein 2+ (Negative) H 06/24/24 14:46 Urine Glucose (UA) Negative (Negative) 06/24/24 14:46 Urine Ketones 1+ (Negative) H 06/24/24 14:46 Urine Nitrite Negative (Negative) 06/24/24 14:46 Ur Leukocyte Esterase 1+ (Negative) H 06/24/24 14:46 Urine WBC (Auto) 6-10 /hpf (0-5) H 06/24/24 14:46 Urine RBC (Auto) >20 /hpf (0-2) H 06/24/24 14:46 U Hyaline Cast (Auto) 0-2 /lpf (0-2) 06/24/24 14:46 U Epithel Cells (Auto) 3-5 /hpf (0-2) H 06/24/24 14:46 Urine Bacteria (Auto) None Seen (None Seen) 06/24/24 14:46
[2024-06-25] MEDS: DESVENLAFAXINE SUCCINATE ER TABLET PO SCH (12:19)
[2024-06-25] MEDS: LACTATED RINGER'S 1,000 ML IV SCH (12:44)
[2024-06-25] MEDS: ceFAZolin 2000MG 2,000 MG/15 ML SYR IV ONE (12:47)
--- NOTE | 2024-06-25 13:14 | Operative Report ---
PG Post Operative Report Pre & Post Diagnosis Operation Date: 06/25/24 08:40 Pre-Op Diagnosis: (1) Acute left flank pain (2) Hydronephrosis (3) Ureteral stone Post-Op Diagnosis: (1) Acute left flank pain (2) Hydronephrosis (3) Ureteral stone I identified the patient and participated in the time-out.: Yes Procedure Operation Date: 06/25/24 08:40 Actual Procedures p Cystoscopy, Retrograde Pyelogram, Left Ureteral Stent Stent Placement - Ben Reese MD Surgeon Ben Reese MD Audio/Visual Manager None Estimated Blood Loss 0 Findings Consistent with Post-Op Diagnosis Specimens Urine from left kidney for culture Drains 6 Macedonian by 24 cm double-J ureteral stent in the left ureter Anesthesia Type MAC Complications none Disposition Accompanied Patient To Recovery: Yes Disposition: Recovery Room Indications This is a 79-year-old female with history of nephrolithiasis. She recently presented to the emergency department with intractable left-sided flank pain and was brought to the OR for left ureteral stent placement. Description of Procedure The patient was identified in the holding area and informed consent was confirmed. She was marked on the left side, then was taken to the operating room where anesthesia was initiated. She was placed in the dorsal lithotomy position with all pressure points appropriately padded. She was prepped and draped in the usual sterile fashion and a preoperative timeout was performed. A well-lubricated cystoscope was inserted per urethra and panendoscopy was performed. The urethra was normal in appearance. The bladder was of normal size with ureteral orifices in orthotopic position. The left ureteral orifice was identified and cannulated with a 5 Macedonian open- ended catheter. A retrograde pyelogram was performed demonstrating the distal ureter was normal in course and caliber. At the proximal ureter there was a f illing defect in the shadow suspicious for her stone. There was mild hydronephrosis of the kidney. A 0.038" ZIPwire was advanced to the level of the kidney under fluoroscopic guidance. The wire initially curled back upon the stone but was able to be advanced eventually. Once it was in place, there was drainage of somewhat turbid urine alongside the wire. A sample of this urine was collected and sent for urine culture. Over the wire, a 6 Macedonian x 24 centimeter double-J ureteral stent was advanced. When the wire was removed, the proximal curl was visualized in the kidney with x-ray, and the distal curl visualized in the bladder with the cystoscope. At this point the bladder was drained and all instrumentation was removed. The patient was then awakened from anesthesia and was brought to the PACU in stable condition. I attest to the content of the Intraoperative Record and any orders documented therein. Any exceptions are noted below.
[2024-06-25] MEDS: DIATRIZOATE MEGLUMINE 30% 100ML VIAL INSTIL ONE (13:17)
--- NOTE | 2024-06-25 13:29 | Hospitalist Progress Note ---
<Statement entered by Tee Scherer, - 06/25/24 14:37> I have seen and examined the patient and have discussed the case with the provider above. I have reviewed the advanced practitioner's documentation, and I agree with, and take responsibility for that plan of care. 14 minutes spent on coordinating care and evaluation at bedside. Patient having still significant pain from renal colic. at bedside. States pain medicine this helps for about an hour or so. Answered patient and 's questions about stepwise approach of stent and then definitive treatment of stone as an outpatient Plan of care as outlined below Date of Service June 25, 2024 Assessment & Plan (1) Renal colic: (2) Hydronephrosis: Plan: Patient presents with left-sided abdominal pain CBC revealed mild leukocytosis BUN/creatinine within normal limits Urinalysis shows 3+ blood, no bacteria seen CT abdomen pelvis shows moderate left sided hydroureteronephrosis secondary to obstructing 9 mm left ureteral calculus. ED physician discussed with urology; recommend n.p.o. from midnight for possible intervention Started on IV fluids with 70ml/hr of NS Pain control with Tylenol, morphine Urology on board She underwent L ureteral stent - turbid urine was collected alongside the wire and sent for culture - will start empiric IV Ceftriaxone and await culture Chronic conditions; Dyslipidemiacontinue rosuvastatin GERDcontinue pantoprazole Mood disordercontinue home meds DVT ppx:SCD for now, consider chemical prophylaxis on 06/26 if to remain hospitalized or encourage ambulation Dispo: remain admitted for pain control and await urine culture FULL CODE PCP: Simon A total of 46 min was spent coordinating, documenting, and providing care for this patient excluding time spent in the performance of separately billed services. This included personally viewing all current laboratories and imaging studies, medication reconciliation, outpatient chart review, and discussion with specialists. Admission and Anticipated Discharge Date Admission Date: June 24, 2024 Subjective This is a 79 yr old F who was seen in room 315 for L flank pain. Her is at bedside who helps elicit history. She denies f/c/s, chest pain, sob, n/v/d. She continues to have L flank pain that is severe, despite morphine. She states she has known about this stone and was to have it treated in 2 weeks, but could no longer handle the pain. She states plan is to place a stent. Review of Systems Review of Systems: All systems reviewed & are unremarkable except as noted in HPI & below Physical Exam Physical Exam: Gen: WD/WN, NAD, A&O x3 HEENT: Normocephalic, atraumatic, conjunctivae moist, sclerae anicteric, mucous membranes moist. Lung: Clear to Auscultation bilaterally, no wheezes/rales/rhonchi Heart: Regular rate, regular rhythm, no murmurs, rubs, or gallops Abdomen: Soft, NT, ND +BS x 4 + L CVA tenderness Extremities: No edema Skin: Warm, no rash, negative turgor. Results & Data Results & Data Vital Signs (Past 12 Hours) Vital Signs Temp Pulse Resp BP Pulse Ox O2 Del Method 06/25/24 12:32 36.6 C 80 18 173/68 H 100 Room Air 06/25/24 07:51 36.9 C 71 18 136/72 100 Room Air Laboratory Results I have independently reviewed and interpreted patient's admitting labs including CBC, BMP. Short CBC 06/24/24 06/25/24 Range/Units 13:15 06:10 WBC 12.63 H 7.71 (4.8-10.8) K/ul Hgb 14.0 12.5 (12.0-16.0) g/dl Hct 42.5 37.5 (37.0-47.0) % Plt Count 275 241 (130-400) K/uL BMP 06/24/24 06/25/24 13:15 06:10 Sodium 140 140 Potassium 4.0 4.4 Chloride 102 106 Carbon Dioxide 27 31 BUN 23 22 Creatinine 0.87 1.02 Glucose 90 97 Calcium 10.0 8.3 L Liver Function 06/24/24 Range/Units 13:15 Total Bilirubin 0.5 (0.2-1.0) mg/dl AST 21 (13-39) U/L ALT 15 (7-52) U/L Alkaline Phosphatase 61 (34-104) U/L Albumin 5.2 H (3.4-5.0) gm/dl Urine 06/24/24 Range/Units 14:46 Urine Color Yellow Urine Appearance Cloudy A (Clear) Urine pH 7.5 (4.5-7.5) Ur Specific [place] 1.018 (1.000-1.030) Urine Protein 2+ H (Negative) Urine Glucose (UA) Negative (Negative) Medications Administered Current Inpatient Medications Atropine Sulfate (Atropine Sulfate 0.1 Mg/Ml 10ml Syr) 0.5 mg IV Q1M PRN PRN Reason: PACU Use-HR<40 &/or Bradycardi Stop: 06/25/24 19:50 Bupropion HCl (Bupropion Sr 150 Mg Tabcr) 150 mg PO QAM [facility] Stop: 07/25/24 08:59 Last Admin: 06/25/24 08:05 Dose: 150 mg Cyanocobalamin (Cyanocobalamin (B-12) 500 Mcg Tablet) 1,000 mcg PO QAM [facility] Stop: 07/25/24 08:59 Last Admin: 06/25/24 08:05 Dose: 1,000 mcg Desvenlafaxine Succinate (Desvenlafaxine Succinate Er Tablet) 2 tab PO DAILY [facility] Stop: 07/25/24 11:59 Last Admin: 06/25/24 12:19 Dose: 2 tab Ephedrine Sulfate (Ephedrine Sulfate 50 Mg/Ml Amp) 5 mg IV Q5M PRN PRN Reason: PACU Use Only-SBP<90 mmHg Stop: 06/25/24 19:50 Fentanyl Citrate (Fentanyl Citrate Pf 100 Mcg/2 Ml Vial) 25 mcg IV Q5M PRN PRN Reason: PACU Use Only-Pain Stop: 06/25/24 19:50 Folic Acid (Folic Acid 400 Mcg Tab) 400 mcg PO QAM [facility] Stop: 07/25/24 08:59 Last Admin: 06/25/24 08:05 Dose: 400 mcg Gabapentin (Gabapentin 300 Mg Cap) 300 mg PO BID [facility] Stop: 07/24/24 20:59 Last Admin: 06/25/24 08:04 Dose: 300 mg Sodium Chloride (Nss) 1,000 mls @ 70 mls/hr IV .[id number] [facility] Stop: 07/24/24 16:59 Last Infusion: 06/25/24 12:43 Dose: 0 mls/hr Acetaminophen (Ofirmev) 1,000 mg in 100 mls @ 400 mls/hr IV Q8H PRN PRN Reason: Mild Pain (Scale 1, 2, 3) Stop: 06/27/24 18:37 Last Infusion: 06/24/24 20:25 Dose: Infused Lactated Ringer's (Lr) 1,000 mls @ 15 mls/hr IV .Q24H KARI Stop: 07/25/24 12:44 Last Infusion: 06/25/24 12:47 Dose: Infused Lamotrigine (Lamotrigine 100 Mg Tab) 100 mg PO QPM [facility]; Protocol Stop: 07/24/24 20:59 Last Admin: 06/24/24 20:01 Dose: 100 mg Morphine Sulfate (Morphine Sulfate 2 Mg/Ml Carp) 2 mg IV Q3H PRN PRN Reason: Severe Pain (Scale 7, 8, 9,10) Stop: 07/08/24 18:37 Last Admin: 06/25/24 08:32 Dose: 2 mg Ondansetron HCl (Ondansetron Inj 2 Mg/Ml 2 Ml Vial) 4 mg IV Q6H PRN PRN Reason: Nausea Stop: 07/24/24 18:37 Ondansetron HCl (Ondansetron Inj 2 Mg/Ml 2 Ml Vial) 4 mg IV ONCE PRN PRN Reason: PACU Use Only-Nausea/Vomiting Stop: 06/25/24 19:50 Pantoprazole Sodium (Pantoprazole 40 Mg Tab) 40 mg PO BID [facility] Stop: 07/24/24 20:59 Last Admin: 06/25/24 08:04 Dose: 40 mg Polyethylene Glycol (Polyethylene (Miralax) 17 Gm Pack) 17 gm PO DAILY PRN PRN Reason: Constipation Stop: 07/24/24 18:37 Rosuvastatin Calcium (Rosuvastatin Calcium 5 Mg Tab) 5 mg PO Q2D@0900 [facility] Stop: 07/25/24 08:59 Last Admin: 06/25/24 08:05 Dose: 5 mg (2) Hydronephrosis Hydronephrosis type: with renal calculous obstruction Qualified Code(s): N13.2 - Hydronephrosis with renal and ureteral calculous obstruction
--- NOTE | 2024-06-25 13:31 | Fluoroscopy Report ---
FL retrograde includes kub CLINICAL HISTORY: LT CYSTO STENTleft-sided cystourethrogram COMPARISON STUDY: CT 06/24/2024 FLUOROSCOPY TIME: 13.3 seconds FLUOROSCOPY IMAGES: 4 EXPOSURE DOSE: 1.58 mGy FINDINGS: Left-sided cystourethrogram demonstrates left-sided hydronephrosis. Status post placement o f a left ureteral stent, proximal portion in satisfactory positioning. The distal portion of the sten t was not imaged. IMPRESSION: Fluoroscopic assistance as above. ACT 112: Negative or not required by law. Electronically signed by: Gavin Addison M.D. 06/25/2024 1:30 PM
--- NOTE | 2024-06-25 13:41 | Anesthesiology Progress Note ---
Date of Service June 25, 2024 Anesthesia Post Procedure Vital Signs Vital Signs: Temp Pulse Pulse Pulse Resp BP BP 06/25/24 13:30 76 14 127/56 L 06/25/24 13:22 96.8 F L 80 18 119/55 L 06/25/24 12:32 97.9 F 80 18 173/68 H 06/25/24 07:51 98.4 F 71 18 136/72 06/24/24 19:41 98.1 F 66 18 06/24/24 18:38 98.2 F 81 16 06/24/24 18:26 66 14 158/80 H 06/24/24 15:00 81 16 148/78 H 06/24/24 14:30 79 17 142/75 H 06/24/24 14:00 76 19 164/125 H BP Pulse Ox O2 Del Method 06/25/24 13:30 97 Room Air 06/25/24 13:22 99 Room Air 06/25/24 12:32 100 Room Air 06/25/24 07:51 100 Room Air 06/24/24 19:41 150/71 H 100 Room Air 06/24/24 18:38 150/76 H 98 Room Air 06/24/24 18:26 99 Room Air 06/24/24 15:00 99 06/24/24 14:30 100 06/24/24 14:00 100 Pain Intensity Left Flank: Pain Intensity: 6 Transfer of Care Handoff Completed per policy Notes Mental Status: alert / awake / arousable and participated in evaluation Patient Amnestic to Procedure: Yes Nausea / Vomiting: adequately controlled Pain: adequately controlled Airway Patency, RR, SpO2: stable & adequate BP & HR: stable & adequate Hydration State: stable & adequate Anesthetic Complications: no major complications apparent and Pt Satisfied with anesthetic care
[2024-06-25] MEDS: cefTRIAXone SODIUM 2,000 MG/50 ML BAG IV SCH (14:11)
[2024-06-25] MEDS: ONDANSETRON INJ 2 MG/ML 2 ML VIAL IV PRN (19:17)
[2024-06-26] MEDS: oxyCODONE HCL IR 5 MG TAB (IMMEDIATE RELEASE) PO PRN (02:24)
[2024-06-26 06:25] LABS: Hematocrit (blood only) 34.7 % (37.0-47.0); Hemoglobin 11.4 g/dl (12.0-16.0); Mean Corpuscular Hemoglobin 29.4 pg (25.0-34.0); Mean Corpuscular Hgb Conc 32.9 g/dL (32.0-36.0); Mean Corpuscular Volume 89.4 fL (80.0-100.0); Mean Platelet Volume 10.5 fL (9.4-12.4); Platelet Count 207 K/uL (130-400); RDW Coefficient of Variation 14.1 % (11.5-14.5); RDW Standard Deviation 45.9 fL (36.4-46.3); Red Blood Count 3.88 M/uL (4.20-5.40); White Blood Count 8.34 K/ul (4.8-10.8)
[2024-06-26 06:39] LABS: Calcium 8.4 mg/dl (8.6-10.3); Creatinine Clr Calc Pharmacy 53.7 ml/min; Est GFR (African American) 83.7 ml/min; Est GFR (Non-African American) 72.2 ml/min; Potassium 4.1 mmol/L (3.5-5.1)
[2024-06-26 07:20] VITALS: O2SAT 100
--- NOTE | 2024-06-26 08:27 | Urology Progress Note ---
Date of Service June 26, 2024 Assessment & Plan (1) Acute left flank pain: (2) Hydronephrosis: (3) Ureteral stone: Plan 79 yo/F admitted with intractable left-sided pain secondary to an obstructing 9 mm left ureteral stone. - Postop day #1 status post cystoscopy and left ureteral stent placement - Pain has improved following stent placement yesterday. - She is afebrile with stable vitals. - Labs today show no leukocytosis and normal renal function. - Urine culture from left kidney is pending. She is on Ceftriaxone. - No further acute intervention. - Patient plans to f/u with Dr. Tariq of [facility] urology for stone and stent management. She is reportedly scheduled for outpatient stone treatment in approx 2 weeks. - Patient is aware to contact our office with any issues or concerns. - OK for d/c from perspective when medically stable. - Continue supportive care and pain management as needed. - Urology will sign off. Please call with any further questions or concerns. Admission and Anticipated Discharge Date Admission Date: June 24, 2024 Subjective Pt seen at bedside this AM Awake, resting in bed on arrival No acute distress Overall feeling better Tolerating the stent with minimal bother Denies f/c/n/v Voiding without issue Denies hematuria or dysuria this morning Review of Systems Constitutional: as per Subjective / HPI Gastrointestinal: as per Subjective / HPI Genitourinary: as per Subjective / HPI Physical Exam Constitutional: no acute distress Respiratory: no respiratory distress and no labored breathing Musculoskeletal: Head/Neck/Chest: normocephalic Neurologic: moves all extremities and awake Psychiatric: A+Ox3, euthymic affect Results & Data Vital Signs (Past 12 Hours) Vital Signs Temp Pulse Resp BP Pulse Ox O2 Del Method 06/26/24 07:19 36.9 C 68 15 122/70 100 Room Air 06/26/24 04:13 36.6 C 76 16 104/70 97 Room Air 06/25/24 23:38 36.9 C 76 16 152/70 H 99 Room Air PG Care Time/CCT Total # of Minutes Spent Total Time Spent with Patient: Total time spent is greater than 50% in coordination of care (as documented) at patient's floor/unit and/or counseling patient: Coding Level of Care Code 47800 SUB INP/OBS CARE 2/35MIN Diagnoses Acute left flank pain R10.9 Hydronephrosis N13.2 Hydronephrosis type: with renal calculous obstruction Ureteral stone N20.1 (2) Hydronephrosis Hydronephrosis type: with renal calculous obstruction Qualified Code(s): N13.2 - Hydronephrosis with renal and ureteral calculous obstruction
--- NOTE | 2024-06-26 11:31 | Discharge Summary ---
<Statement entered by Tee Scherer DO - 06/26/24 16:31> I have seen and examined the patient and have discussed the case with the provider above. I have reviewed the advanced practitioner's documentation, and I agree with, and take responsibility for that plan of care. 12 minutes spent on evaluation patient in coordination of care Patient feeling much improved, at bedside. Anticipating discharge Discharge plan as outlined below Discharge Summary Date of Service June 26, 2024 Principal Dx & Hospital Course #1 = Principal Diagnosis (1) Renal colic: (2) Hydronephrosis: Plan This is a 79yo F with PMH of dyslipidemia, GERD, renal stone, mood disorder and other medical problems listed below who was admitted for left-sided hydroureteronephrosis secondary to obstructing 9 mm left ureteral calculus. Underwent cystoscopy and left ureteral stent placement on 07/[address] Reese of [facility] urology. Feeling much better after procedure with minimal discomfort. Urinating without issue. Instructed to follow-up with primary urologist, Dr. Tariq for stone and stent management within the next few weeks. Urine noted to be turbid during urologic procedure and was started on Rocephin. Urine culture still pending. Will discharge on additional 4 days of cefdinir to complete treatment for possible UTI as well as instrumentation for stent placement. Patient hemoglobin is stable and comfortable at time of discharge home. Notes For Next Care Provider obstructing ureteral stone s/p L stent placement Medication Changes From Visit cefdinir x 4 days for possible UTI Admission HPI Per Admitting Provider History obtained from chart review and interview with the patient. Past medical history of dyslipidemia, GERD, renal stone, mood disorder Patient presents with severe onset of left flank pain that radiates to left lower quadrant. The pain is intermittent, colicky; denies burning sensation or increase on urgency. No fever, chills. No nausea, vomitin, chest pain, shortness of breath. On presentation to the ED, she was hypertensive, afebrile and saturating well on room air CBC revealed mild leukocytosis BUN/creatinine within normal limits Urinalysis shows 3+ blood, no bacteria seen CT abdomen pelvis shows moderate left sided hydroureteronephrosis secondary to obstructing 9 mm left ureteral calculus. ED physician discussed with urology; recommend n.p.o. from midnight. Patient referred for admission. Admission Exam Per Admitting Provider Constitutional: WD/WN, vitals as above, Respiratory: normal respiratory effort, lungs clear to auscultation, no wheeze, rales, rhonchi. Normal insp/exp effort, no accessory muscle use Cardiovascular: RRR, no murmur, no edema Vessels: no JVD or carotid bruit Chest: normal inspection of chest Abdomen: Tenderness in left flank Musculoskeletal: no cyanosis or clubbing, extremities motor strength 5/5 Skin: no rashes, warm and dry normal turgor Neurologic: PERRL, EOMI, accommodation nl, no face palsy, no dysarthria CN's II- XI intact bilaterally and moves all extremities Psychiatric: A+Ox3, euthymic affect Discharge Exam Constitutional: WD/WN, vitals as above Respiratory: normal respiratory effort, lungs clear to auscultation, no wheeze, rales, rhonchi. Normal insp/exp effort, no accessory muscle use Cardiovascular: RRR, no murmur, no edema Vessels: no JVD or carotid bruit Chest: normal inspection of chest Abdomen: mild L suprapubic TTP, improved Musculoskeletal: no cyanosis or clubbing, extremities motor strength 5/5 Skin: no rashes, warm and dry Neurologic: PERRL, EOMI, accommodation nl, no face palsy, no dysarthria CN's II- XI intact bilaterally and moves all extremities Psychiatric: A+Ox3, euthymic affect Updated Medication List Medication Instructions Recorded Confirmed Type acetaminophen 325 mg tablet 650 mg PO QID PRN Pain 11/10/19 06/24/24 History (Tylenol) pantoprazole 40 mg tablet,delayed 40 mg PO BID 11/10/19 06/24/24 History release bupropion HCl 150 mg tablet,12 hr 150 mg PO QAM 03/20/23 06/24/24 History sustained-release desvenlafaxine 100 mg 100 mg PO QPM 03/20/23 06/24/24 History tablet,extended release 24 hr gabapentin 300 mg capsule 300 mg PO BID 03/20/23 06/24/24 History lamotrigine 100 mg tablet 100 mg PO QPM 03/20/23 06/24/24 History rosuvastatin 5 mg tablet 5 mg PO Q2D 03/20/23 06/24/24 History betamethasone dipropionate 0.05 % 1 applic topical BID PRN Skin 06/24/24 06/24/24 History topical cream Irritation vitamin B12 1,000 mcg-folic acid 1 minnie sublingual QAM 06/24/24 06/24/24 History 400 mcg sublingual lozenge cefdinir 300 mg capsule 300 mg PO BID 4 days #8 caps 06/26/24 Rx Hospital Stay Data Consultations 06/24/24 15:11 ED Decision to Admit Stat 06/24/24 18:38 Consult Urology Routine Procedures Performed Operation Date: 06/25/24 08:40 Actual Procedures p Cystoscopy, Retrograde Pyelogram, Left Ureteral Stent Stent Placement(Not Applicable) - Ben Reese MD Diagnostic Imagining Performed 06/24/24 13:21 CT abd pelvis wo con Stat 06/25/24 12:56 FL retrograde includes kub Routine Pending Results Patient Have Any Pending Studies at Discharge: Yes Discharge Instructions Given to Patient (Per Discharging Provider) You were admitted to hospital for abdominal pain and found to have an obstructing ureteral stone. Underwent cystoscopy and left ureteral stent placement on 06/25/[address] Reese of [facility]. Please follow-up with your primary urologist for stone and stent management as discussed. MEDICATION CHANGES: Cefdinir 300mg by mouth twice daily x 4 days forpossible UTI / instrumentation with stent placement. PENDING TEST RESULTS: Urine culture RECOMMENDATIONS FOR FOLLOW-UP: Follow up with PCP and urology as scheduled. Complete antibiotic in its entirety. Continue medication regimen as scheduled aside from changes noted above. OTHER INSTRUCTIONS: Seek medical attention if you have: * temperature above 101 * chest pain or trouble breathing * abdominal pain, nausea, vomiting * diarrhea, dark stools or bloody stools * any unanswered questions or concerns Call 911 if symptoms are severe. Please take good care of yourself. Call if you have any questions or problems. You can reach a [facility] hospitalist on duty at [facility] 24 hours a day by calling [phone]. Total Time Total Time Spent Total Time Spent (In Minutes): 45
[2024-06-26 11:42] VITALS: BP 126/60; PULSE 76; RESP 16; TEMP 97.5
== END 2024-06-26 12:22 | disposition home or self-care (01) | DRG 661 ==
LOC: ED 12:54 → SUATTDRO 15:28 → 3E 15:28

== ENCOUNTER 2024-10-18 03:31 | Observation (INO) ==
--- OUTSIDE RECORDS SUMMARY | 2024-10-18 03:37 | External Medical Summary | Summary of Care ---
Author Name Unknown Organization [facility] Address [address] [facility] [place] [address] Phone [phone] Care Team Providers Care Territory Representative Name Role Phone Devan Montes MD Primary Care Provider [phone]- [phone] Reason for Visit * Reason Comments Follow Up Pt here for full ski n exam. Hx of non-melanoma skin cancer. No concerns. Encounter Details Date Type Department Care Team (Late st Contact Info) Description 10/02/2024 10:20 AM EST Office Visit [address] [place] [phone] Thalia Ruiz PA-C [address] [place] [address] [place] [address] Hx of nonmelanoma skin cancer*; Scar condition and fibrosis of skin; Skin exam, screening for cancer; Seborrheic keratosis; Multiple nevi; Lentigines Allergies Active Allergy Reactions Criticality Noted Date Comments Adhesive Tape 08/01/2004 Skin red and irritated Bactrim Diarrhea Medium 10/03/2012 C-diff Latex 08/01/2004 Turns skin red and itches Latex 11/11/2019 Other reaction(s): Rash Trimethoprim Low 11/11/2019 Other reaction(s): Rash documented as of this encounter (statuses as of 10/02/2024) Medications buPROPion HCl ER (SR) 150 MG Oral Tablet Extended Release 12 Hour (WELLBUTRIN SR) Take 1 Tablet by mouth in the morning. 0 Active B-12 1000 MCG Oral Capsule Take 1 Capsule by mouth in the morning. Active Acetaminophen 325 MG Oral Tablet Take 1 Tablet by mouth every 6 hours as needed. Active Gabapentin 300 MG Oral Capsule (Neurontin) Take 1 Capsule by mouth every evening. 2 Active Betamethasone Dipropionate 0.05 % External Lotion (Diprosone) 2 Active lamoTRIgine 100 MG Oral Tablet (LaMICtal) TAKE 1 TABLET BY MOUTH EVERYDAY AT BEDTIME 3 Active Desvenlafaxine ER 100 MG Oral Tablet Extended Release 24 Hour Take 100 mg by mouth at bedtime. Active Pantoprazole Sodium 40 MG Oral Tablet Delayed Release (Protonix) Take 1 Tablet by mouth in the morning and 1 Tablet in the evening. 180 Tablet 3 4 Active Rosuvastatin Calcium 5 MG Oral Tablet (Crestor) One tab by mouth daily 90 Tablet 2 4 Active Additional Information Patient taking differently: EVERY OTHER DAY, (No instructions reported), Reported on 09/30/2024 documented as of this encounter (statuses as of 10/02/2024) Active Problems Problem Noted Date Diagnosed Date Calculus of kidney 05/28/2024 Microhematuria 05/28/2024 Bipolar 1 disorder, mixed 06/26/2018 Right renal mass 07/12/2017 Overview (07/12/2017): Has a likely right posterior upper pole 10mm AML (angiomyolipoma) looks like simple cyst on February 2017 CT with dye, and is bright white on renal ultrasound summer 2016. Gastroesophageal reflux disease without esophagi tis 06/07/2017 Dyslipidemia, goal LDL below 160 01/10/2013 History of basal cell carcinoma 10/03/2012 Overview (10/03/2012): right neck 03/30 Generalized anxiety disorder 05/22/2011 Incisional hernia 06/09/2010 documented as of this encounter (statuses as of 10/02/2024) Resolved Problems Problem Noted Date Diagnosed Date Resolved Date Rhinitis, nonallergic 07/22/20192019 Acquired hypothyroidism 06/07/2017 07/0 02/2024 Dermatitis due to plant 04/21/201504/21 Psoriasis 04/21/2015 05/04/2017 Sprain, lumbosacral 08/01/2011 05/04/20 17 Spasm of muscle 08/01/2011 05/04/2017 ADVANCE DIRECTIVE INFORMATION 06/09/2010 08/31/2019 Overview (06/09/2010): Yes, Patient instructed to provide copy of advance directive for provider to review and to be scanned into Electronic Medical Record Chronic cholecystitis 08/04/20042016 documented as of this encounter (statuses as of 10/02/2024) Immunizations Name Administration Dates Next Due COVID-19 mRNA, LNP-s, No Pre serve, 2-Dose Series (Pfizer) 12/30/2020,12/04/2020 Pneumococcal Conjugate Vacc, 13 Valent (Prevnar) 01/13/2016 Pneumococcal Polysaccharide PPV23 (Pneumovax) 09/05/2012 Seasonal Influenza Vac., MDV , IM, 0.5 mL (Fluzone) 06/08/2014,08/02/2012,08/03/2011,08/08 Seasonal Influenza, High Dos e, Trivalent, PF, IM (Fluzone HD) 07/24/2018 Seasonal Influenza, PF, 6 M & above, IM , (FluLaval or Fluzone) 07/29/2019 Seasonal Influenza, QUAD, wi th Preserv, 6 mons & Above, 0.5 mL, IM 09/10/2017 Seasonal Influenza, Quadriva lent Hd (Fluzone Hd) 07/14/2021(Deferred: Patient Refused) Seasonal Influenza, Quadriva lent Hd, 65+ Yrs 08/05/2022 Seasonal Influenza, Quadriva lent, No Preserve, IM 07/19/2016,08/01/2015 Seasonal Influenza, Recombin ant, RIV4, PF, (Flublock) 07/26/2020 TD, Preservative Free 04/27/2021 TDAP, Age 7 [...] ages 0-17 years) Not on file 04/25/2024 Comments No Sex and Gender Information Value Date Recorded Sex Assigned at Female 12/23/2019 4:00 PM EST Legal Sex Female 6:17 AM EST Gender Identity Female 12/23/2019 4:00 PM EST Sexual Orientation Choose not to disclose 2019 4:00 PM EST documented as of this encounter Patient Instructions * Patient Instructions* Thalia Ruiz PA-C - 10/02/2024 10:25 AM EST SUNSCREEN USE AND SUN PROTECTION: 1. The best protection is sun avoidance. Seek shade if you can, especially between 10am to 4pm (peak sun hours). 2. Use sunscreen with an SPF (Sun Protection Factor - the number on most sunscreen bottles) of 30 or more that protects from Ultraviolet A (UVA) and Ultraviolet B (UVB) wavelength light (strongly recommend SPF 50). This is referred to as broad spectrum sun protection because it protects from most wa velengths in both spectrums of UVA and UVB light. Unfortunately, even though the protection is broad it is not complete, therefore making sun avoidance the best protection. UVB and UVA have both beenimplicated in causing skin cancers. Older sunscreens only protected from UVB and sunscreens with added UVA protection should contain Titanium dioxide, Zinc oxide, or Avobenzone. Other oil free, non-comedogenic lotion with SPF 30 or greater is fine. 3. Use sun protection if outside for 15 minutes or more. Apply 20-30 minutes before going out and reapply every 1-2 hours. No sunscreen is truly water ''proof'' and it will wash away with sweat, swimming and rubbing. 4. Wear tightly woven, loose fitting (cooler) long sleeved clothing, UV-blocking sun glasses (eyes need protection as well) and wide-brimmed hatwear (no straw hats with holes because light still getsthrough). Strongly recommended *Neutrogena Pure and Free Baby SPF 60 (have separate face and body lotions) orCeraVe AM facial lotion (with SPF 30). If looking for non toxic alternatives-look for non-pennie particle zinc. Product examples; Think sport, Think baby, Jono, Babo botInThrMa, [employer], [place] baby. "Baby" products can be used for all ages. documented in this encounter Progress Notes * Thalia Ruiz PA-C - 10/02/2024 10:20 AM EST SUBJECTIVE: HPI: Josselyn Willis is a 79 year old female seen at the request of Self for evaluation and treatment of full skin exam. No vulvar exams performed, no vulvar discoloration and/or lesions to be assessed per pt. Pt. declined full skin exam, waist up exam performed. - Tanning bed history. + Blistering sunburns. No new or changing lesions, per pt. Seen several SP providers in past. Ad Clerk Documentation Patient offered cleaner greaser and declined. REVIEW OF SYSTEMS: SKIN: No other new or changing moles. HEME/LYMPH: No new or enlarging lumps or bumps. CONSTITUTIONAL: No nausea, vomiting, fevers, chills, diarrhea. No recent unintended weight loss, night sweats, appetite or malaise. RESP: negative MSK/EXT: Negative or as per HPI GI: negative CV: Negative or as per HPI Rest of systems are negative or as per HPI SKIN CANCER HX: basal cell carcinoma (Nathalia singh 03/2020) Reviewed, same day as visit, [address] [facility] Dermatology lab work(s)/pathology report(s) as well as those sent by referring provider prior to seeing pt. Past Medical History: Diagnosis Date Acquired hypothyroidism 06/07/2017 Anxiety state Asthma, severity to be determined Asthma w/o status Bipolar 1 disorder, mixed (HCC) 06/26/2018 Depressive disorder, not elsewhere classified Dyslipidemia, goal LDL below 160 01/10/2013 Female stress incontinence mild Gastroesophageal reflux disease without esophagitis 06/07/2017 GERD (gastroesophageal reflux disease) History of basal cell carcinoma 10/03/2012 right neck 03/30 Incisional hernia 06/09/2010 Mitral valve disorder Mitral Valve Prolapse Right renal mass 07/12/2017 Has a likely right posterior upper pole 10mm AML (angiomyolipoma) looks like simple cyst on February 2017 CT with dye, and is bright white on renal ultrasound summer 2016. Sicca syndrome (HCC) FAMILY HISTORY: Skin CA: unknown skin cancer (possibly non-melanoma) in brother(s) Skin Disorders: none SOCIAL HISTORY: Social History Tobacco Use Smoking status: Never Passive exposure: Past Smokeless tobacco: Never Tobacco comments: no passive smoke Substance Use Topics Alcohol use: No Vaping/E-Cigarette Use Vaping/E-Cigarette Use Never User Vaping/E-Cigarette Substances Vaping/E-Cigarette Devices MEDICA TIONS: Current Outpatient Medications Medication Sig Dispense Refill buPROPion HCl ER (SR) 150 MG Oral Tablet Extended Release 12 Hour (WELLBUTRIN SR) Take 1 Tablet by mouth in the morning. B-12 1000 MCG Oral Capsule Take 1 Capsule by mouth in the morning. Acetaminophen 325 MG Oral Tablet Take 1 Tablet by mouth every 6 hours as needed. (Patient not taking: Reported on 09/30/2024) Gabapentin 300 MG Oral Capsule (Neurontin) Take 1 Capsule by mouth every evening. Betamethasone Dipropionate 0.05 % External Lotion (Diprosone) [...] Tablet (Crestor) One tab by mouth daily (Patient taking differently:every other day.) 90 Tablet 2 No current facility-administered medications for this visit. ALLERGY: Bactrim, Adhesive tape, Latex, Latex, and Trimethoprim OBJECT YOSI: GEN: alert, no distress, appears oriented, pleasant, and cooperative. SKIN: Detailed exam of hair, face including lids and lips, neck, chest, abdomen, back, bilateral upper ext. (arm, hand, fingers), bilateral lower ext. (leg, foot, toes), palpation of scalp, fingernails, toenails, inguinal areas, groin (mons pubis), buttocks, and anus completed: 1. L druze-White horizontal atrophic scar. 2. Trunk/bilat arms and legs-About 35 total; 2-5mm light and light-medium brown macules and very few soft papules. 3. Trunk/bilat arms and legs-Some sharply defined, variegated brown, waxy flat papules with velvetyto finely verrucous surfaces. 4. Face/neck/trunk/bilat arms and legs-Many well defined light to medium brown homogenous stellate macules. ASSESS MENT/PLAN: 1. Scar s/p basal cell carcinoma on L druze-No sign of recurrence. 2. Nevi on trunk/bilat arms and legs-no tx needed, pt given reassurance and written education aboutdiagnosis. Skin cancer brochure given and ABCDE's discussed with patient. Annual full body skin examination (unless I recommended otherwise), self-examination, and sun protection (SPF 30+ daily to sun exposed areas, with reapplication every 1-2 hours when out in sun for long periods of time) advised and discussed. Recommended sooner follow up for new or changing lesions. These changes include rapid enlargement, changes in color or shape or symptoms, bleeding, or other concerns. The common features and behavior of non-melanoma skin cancers (e.g. BCC/SCC) as well as the ABCDEs and ugly duckling features of melanoma were also reviewed. 3. Seborrheic/Benign Keratosis(-es) on trunk/bilat arms and legs-no tx needed, pt given reassuranceand written education about diagnosis. 4. Lentigines on face/neck/trunk/bilat arms and legs-No treatment needed, pt given reassurance. Patient alone today. Photo(s) of #1-4 taken, pt verbally consented to having photo(s) taken. Follow-up: 1 year for full skin exam (per pt request) Photos and chart reviewed by Dr. Rodger Wilson. Presum ed diagnoses, expected natural histories, and management options discussed with the patient at length. Questions were addressed and anticipatory guidance provided. They were instructed to contact me if additional questions, concerns, or problems develop in the interim. -There were no barriers to learning and no other pain was related to today's visit. The patient and/or person accompanying patient demonstrates understanding of the visit and treatment. Thalia Ruiz PA-C 10/02/2024 10:27 AM Dermatology [facility] [address] [facility] [place] [phone] documented in this encounter Nursing Notes * Aurora Mack LPN - 10/02/2024 10:02 AM EST Patient identified by full name and date of Chief Complaint Patient presents with Follow Up Pt here for full skin exam. Hx of non-melanoma skin cancer. No concerns. documented in this encounter Plan of Treatment Upcoming Encounters Date Type Department Care Team (Latest Contact Info) Description 10/06/2024 10:15 AM EST Hospital Encounter ENDO [facility], Endoscopy Room [facility] [address] [place] [id number] Abeba Cai DO [address] [place] [address] 10/06/2024 10:15 AM EST - 10/06/2024 10:45 AM EST Surgery ENDO [facility], Endoscopy Room [facility] [address] [place] [phone] Abeba Cai DO [address] [place] [address] COLONOSCOPY FLEXIBLE PROXIMAL DIAGNOSTIC 11/18/2024 8:00 AM EST Imaging Radiology [facility] [address] [place] [address] 11/25/2024 9:30 AM EST Telemedicine Urology [place] [address] [place] [address] Jeremy Tariq MD [address] [place] [address], Telemed [facility] Urology Ex [address] [place] [address] 02/19/2025 8:00 AM EDT Office Visit Cardiology, [facility] [address] [place] [address] Tanika Dumas CRNP [address] [place] [address] 04/30/2025 1:00 PM EDT Office Visit Family Practice, [place] [facility] [address] [facility] [place] [phone] Rosanne Munoz PA-C [address] [facility] [place] [address] 12/03/2025 8:20 AM EST Office Visit Dermatology, [place] [facility] [address] [facility] [place] [phone] Thalia Ruiz PA-C [address] [place] [address] [place] [address] Scheduled Procedures Name Priority Associated Diagnoses Date/Ti me COLONOSCOPY FLEXIBLE PROXIMAL DIAGNOSTIC Recall History of colon polyps 10/06/2024 10:15 AM EST Health Maintenance Due Date Last Done Comments Adult Wellness Visit 2013 DXA Scan 12/01/2020 12/01/2013, 11/22, 09/30/2010 COVID-19 Vaccine ( season) 2024 08/10/2023, 09/06/2021, 12/30/2020, Additional history exists Influenza Vaccine (FLU shot) (#1) 2024 08/05/2022, 07/26/2020, 07/29/2019, Additional history exists Colonoscopy 07/15/2024 07/15/2019, 06/23, 05/01/2014, Additional history exists DTap/Tdap Vaccines (3 - Td or Tdap) 04/27/2031 04/27/2021, 09/20/2010 Pneumococcal Vaccine: 65+ Years Completed 01/13/2016, 09/05/2012 RETIRED - COLONOSCOPY-EVERY 5 YRS AGES 18-100 Discontinued 07/15/2019, 07/15/2019, 05/01/2014, Additional history exists Zoster Vaccines Completed 07/22/2021, 07/23, 12/29/2019, Additional history exists HPV (Gardasil) Vaccine Aged Out No lo [...] Procedure Name Priority Date/Time Associated Diagnosis Comments DERM EXAM - DERM (IMAGES ONLY, NO REPORT) Routine 10/02/2024 10:35 AM EST Hx of nonmelanoma skin cancer Scar condition and fibrosis of skin Skin exam, screening for cancer Seborrheic keratosis Multiple nevi Lentigines documented in this encounter Results * DERM EXAM - DERM (IMAGES ONLY, NO REPORT) (10/02/2024 10:35 AM EST) Narrative Scheduling, Silent - 10/02/2024 10:35 AM EST This is an imaging study not interpreted or resulted by a [facility] or [facility] contracted radiologist. Thalia Ruiz PA-C RADIOLOGY ([facility] ) Final Result documented in this encounter Visit Diagnoses Diagnosis Hx of nonmelanoma skin cancer- Primary Personal history of other malignant neoplasm of skin Scar condition and fibrosis of skin Skin exam, screening for cancer Screening for malignant neoplasm of the skin Seborrheic keratosis Other seborrheic keratosis Multiple nevi Benign neoplasm of skin, site unspecified Lentigines Other dyschromia History of colon polyps Personal history of colonic polyps documented in this encounter Advance Directives * Full Code (Latest Code Status on File) Date Activated Date Inactivated Comments 07/07/2024 11:25 AM 07/07/2024 4:55 PM This order reflects the patients wishes and were consensually agreed upon. Question Answer Comments Discussion of Advance Directives occurred with: Patient * Full Code Date Activated Date Inactivated Comments 07/07/2024 8:10 AM 07/07/2024 11:25 AM This order reflects the patients wishes and were consensually agreed upon. Question Answer Comments Discussion of Advance Directives occurred with: Patient Care Teams Territory Representative Relationship Specialty Start Date End Date Devan Montes MD [address] [place] [address] PCP - General Family Medicine 08/21/24 documented as of this encounter
--- OUTSIDE RECORDS SUMMARY | 2024-10-18 03:37 | External Medical Summary | Summary of Care ---
Author Name Unknown Organization [facility] Address [address] [place] [address] Phone [phone] Care Team Providers Care Video Conference Specialist Name Role Phone Devan Montes MD Primary Care Provider [phone]- [phone] Encounter Details Date Type Department Care Team (Latest Contact Info) Description 10/02/2024 10:35 AM EST - 10/02/2024 11:59 PM EST Hospital Encounter Radiology Film File [address] [place] [address] Arrived Discharge Disposition: Home - Self Care Allergies Active Allergy Reactions Criticality Noted Date Comments Adhesive Tape 08/01/2004 Skin red and irritated Bactrim Diarrhea Medium 10/03/2012 C-diff Latex 08/01/2004 Turns skin red and itches Latex 11/11/2019 Other reaction(s): Rash Trimethoprim Low 11/11/2019 Other reaction(s): Rash documented as of this encounter (statuses as of 10/03/2024) Medications buPROPion HCl ER (SR) 150 MG [...] as of this encounter (statuses as of 10/03/2024) Active Problems Problem Noted Date Diagnosed Date [...] as of this encounter (statuses as of 10/03/2024) Resolved Problems Problem Noted Date Diagnosed Date [...] as of this encounter (statuses as of 10/03/2024) Immunizations Name Administration Dates Next Due COVID-19 [...] PM EST documented as of this encounter Plan of Treatment Upcoming Encounters Date Type Department Care Team (Latest Contact Info) Description 10/06/2024 10:15 AM EST Hospital Encounter ENDO [facility], Endoscopy Room [facility] [place] [phone] Abeba Cai, DO [address] [place] [address] 10/06/2024 10:15 AM EST - 10/06/2024 10:45 AM EST Surgery ENDO [facility], Endoscopy Room [facility] [address] [place] [phone] Abeba Cai, DO [address] [place] [address] COLONOSCOPY FLEXIBLE PROXIMAL DIAGNOSTIC 11/18/2024 8:00 AM EST Imaging Radiology [facility] [address] [place] [address] 11/25/2024 9:30 AM EST Telemedicine Urology [facility] [address] [place] [address] Jeremy Tariq MD [address] [place] [id number], Telemed [facility] Urology Ex Rm [address] [place] [address] 02/19/2025 8:00 AM EDT Office Visit Cardiology, [facility] [address] [place] [address] Tanika Dumas CRNP [address] [place] [address] 04/30/2025 1:00 PM EDT Office Visit [facility] [address] [facility] [place] [phone] Rosanne Munoz PA-C [address] [facility] [place] [address] 12/03/2025 8:20 AM EST Office Visit [address] [place] [phone] Thalia Ruiz PA-C [address] [place] [address] [place] [address] Scheduled Procedures Name Priority Associated Diagnoses Date/Ti [...] by a [facility] radiologist. us Thalia Ruiz PA-C RADIOLOGY ([facility] ) Final Result documented in this encounter Advance Directives * [...] Advance Directives occurred with: Patient Care Teams Video Conference Specialist Relationship Specialty Start Date End Date Devan Montes MD [address] [place] [address] PCP - General Family Medicine 08/21/24 documented as of this encounter
--- OUTSIDE RECORDS SUMMARY | 2024-10-18 03:37 | External Medical Summary | Summary of Care ---
Author Name Unknown Organization [facility] Address [address] [address] Phone [phone] Care Team Providers Care Electrical Engineering Director Name Role Phone Devan Montes MD Primary Care Provider [phone] Reason for Visit * Auth/Cert Specialty Diagnoses / Procedures Referred By Elaine t Referred To Contact Diagnoses History of colon polyps History of colon polyps [Z86.0100] Procedures COLONOSCOPY, DIAGNOSTIC (RECTUM) COLONOSCOPY FLEXIBLE PROXIMAL DIAGNOSTIC Abeba Cai DO [address] [place] [address] Phone: tel: fax: ENDO [facility], Endoscopy Room [facility] [address] [facility] [place] [address] Phone: tel: Referral ID Status Reason Start Date Expiration Date Visits Re quested Visits Authorized [id number] Encounter Details Date Type Department Care Team (Latest Contact Info) Description 10/06/2024 8:58 AM EST - 10/06/2024 11:02 AM EST Hospital Encounter ENDO [facility], Endoscopy Room [facility] [address] [facility] [place] [address] Susie Charlton MD [address] [place] [address] [place] [address] Colonoscopy Discharge Disposition: Home - Self Care Allergies Active Allergy Reactions Criticality Noted Date Comments Adhesive Tape 08/01/2004 Skin red and irritated Bactrim Diarrhea Medium 10/03/2012 C-diff Latex 08/01/2004 Turns skin red and itches Latex 11/11/2019 Other reaction(s): Rash Trimethoprim Low 11/11/2019 Other reaction(s): Rash documented as of this encounter (statuses as of 10/06/2024) Medications buPROPion HCl ER (SR) 150 MG [...] OTHER DAY, (No instructions reported), Reported on 10/06/2024 documented as of this encounter (statuses as of 10/06/2024) Active Problems Problem Noted Date Diagnosed Date [...] as of this encounter (statuses as of 10/06/2024) Resolved Problems Problem Noted Date Diagnosed Date [...] as of this encounter (statuses as of 10/06/2024) Immunizations Name Administration Dates Next Due COVID-19 mRNA, LNP-s, No Pre serve, 2-Dose Series ([employer]) 12/30/2020,12/04/2020 Pneumococcal Conjugate Vacc, 13 Valent (Prevnar) [...] PM EST documented as of this encounter Last Filed Vital Signs Vital Sign Reading Time Taken Comments Blood Pressure 103/53 10/06/2024 10:37 AM EST Pulse 83 10/06/2024 10:37 AM EST Temperature 36.1 C (97 F) 10/06/2024 10:37 AM EST Respiratory Rate 16 10/06/2024 10:37 AM EST Oxygen Saturation 99% 10/06/2024 10:37 AM EST Inhaled Oxygen Concentration - - Weight 61.2 kg (135 lb) 09/30/2024 1:00 PM EST Height 166.4 cm (5' 5.5") 09/30/2024 1:00 PM EST Body Mass Index 22.12 09/30/2024 1:00 PM EST documented in this encounter H&P Notes * Susie Charlton MD - 10/06/2024 9:44 AM EST Endoscopy Pre-Procedure Assessment Name: Josselyn Willis Date: 10/06/2024 Time: 9:44 AM Procedure(s): Colonoscopy; with Indication(s) of colon polyp surveillance Endoscopy Pre-Procedure Assessment: Prior to the procedure, the patient is identified. The patient's history, medications and allergieshave been reviewed. The patient is competent. The risks and benefits of the proposed procedure and the planned sedation have been discussed with the patient. All questions have been answered and informed consent for the procedure has been obtained. Prior to Admission medications Medication Sig Last Dose Discont. Rosuvastatin Calcium 5 MG Oral Tablet (Crestor) One tab by mouth daily Patient taking differently: every other day. 10/05/2024 Pantoprazole Sodium 40 MG Oral Tablet Delayed Release (Protonix) Take 1 Tablet by mouth in the morning and 1 Tablet in the evening. Past Week Desvenlafaxine ER 100 MG Oral Tablet Extended Release 24 Hour Take 100 mg by mouth at bedtime. 10/05/2024 lamoTRIgine 100 MG Oral Tablet (LaMICtal) TAKE 1 TABLET BY MOUTH EVERYDAY AT BEDTIME 10/05/2024 Betamethasone Dipropionate 0.05 % External Lotion (Diprosone) Past Month Gabapentin 300 MG Oral Capsule (Neurontin) Take 1 Capsule by mouth every evening. 10/05/2024 B-12 1000 MCG Oral Capsule Take 1 Capsule by mouth in the morning. Past Week buPROPion HCl ER (SR) 150 MG Oral Tablet Extended Release 12 Hour (WELLBUTRIN SR) Take 1 Tablet by mouth in the morning. 10/06/2024 at 6:30 AM Doxycycline Hyclate 100 MG Oral Capsule Take 2 Capsules by mouth once for 1 dose. For a tick bite Acetaminophen 325 MG Oral Tablet Take 1 Tablet by mouth every 6 hours as needed. Patient not taking: Reported on 09/30/2024 Not Taking Review of patient's allergies indicates: Allergen Reactions Bactrim Diarrhea C-diff Adhesive Tape Skin red and irritated Latex Turns skin red and itches Latex Other reaction(s): Rash Trimethoprim Other reaction(s): Rash BP 141/51 | Pulse 87 | Temp 36.5 C (97.7 F) (Tympanic) | Resp 15 | Ht 1.664 m (5' 5.5") | Wt 61.2 kg (135 lb) | SpO2 100% | BMI 22.12 kg/m | BSA 1.68 m Physical Exam: Mental Status Examination: alert and oriented. Resp normal CV normal ASA Grade: II - A patient with mild systemic disease. Abdomen: soft This patient has undergone a preprocedural evaluation. A determination has been made to proceed with the planned procedure under [facility] procedural guidelines and the [facility] Non-Emergent, Elective Medical Services and Treatment Recommendations (published on 01-27-20). The community and hospital prevalence of COVID-19 has been discussed as well as this patient's specific risks associated with SARS-CoV-19 infection. Based upon the clinical acuity and patient-specific care considerations, this procedure is deemed a Tier III - Procedures at little or no risk for clinical deterioration (example - cosmetic). After reviewing the risks and benefits, the patient is deemed in satisfactory condition to undergo the procedure. The anesthesia plan is to use general anesthesia. Susie Charlton MD 10/06/2024 documented in this encounter Procedure Notes * Devan Montes MD - 10/06/2024 9:46 AM ESTAssociated Order(s): COLONOSCOPY [facility] Patient Name: Josselyn Willis Procedure Date: 10/06/2024 9:46 AM Date of : 1945 Admit Type: Outpatient Note Status: Finalized Date of : 1945 Admit Type: Outpatient Age: 79 Room: Endo 2 Gender: Female Note Status: Finalized Procedure: Colonoscopy Indications: High risk colon cancer surveillance: personal history of colon polyps Providers: Susie Charlton MD Patient Profile: Last Colonoscopy: June 2019. Referring MD: Devan Montes MD Medicines: See the Anesthesia note for documentation of the administered medications Complications: No immediate complications. Procedure: Pre-Anesthesia Assessment: - Patient identification and proposed procedure were verified prior to the procedure by the physician, the nurse and the anesthesiologist. The procedure was verified in the pre-procedure area. - Prior to the procedure, a History and Physical was performed, and patient medications, allergies and sensitivities were reviewed. The patient's tolerance of previous anesthesia was reviewed. - The risks and benefits of the procedure and the sedation options and risks were discussed with the patient. All questions were answered and informed consent was obtained. - The medication list for this patient has been reviewed prior to the procedure and has been determined that the patient may proceed with the planned study. Any medication changes made as a result of the findings of this procedure have been discussed with the patient and/or dealer compliance representative at the time of discharge from the department. - After I obtained informed consent, the scope was passed under direct vision. All instruments were visually inspected immediately before and after removal from the patient to ensure they are fully intact. Throughout the procedure, the patient's blood pressure, pulse, and oxygen saturations were monitored continuously. The [id number] Colonoscope ([id number]) was introduced through the anus and advanced to the terminal ileum. The colonoscopy was somewhat difficult due to the patient's body habitus. Successful completion of the procedure was aided by using manual pressure, straightening and shortening the scope to obtain bowel loop reduction and using scope torsion. The patient tolerated the procedure well. The quality of the bowel preparation was adequate to identify polyps 6 mm and larger in size. Findings & Specimens: The examined terminal ileum appeared normal. The examined colon appeared normal. Internal hemorrhoids were found during retroflexion. The exam was otherwise without abnormality on direct and retroflexion views. Impression: - The examined portion of the terminal ileum appeared normal. - The examined colon appeared normal. - Internal hemorrhoids. - The examination was otherwise normal on direct and retroflexion views. Recommendation: - Given she is 79 - would not recommend further recall. Susie Charlton MD 10/06/2024 10:28:50 AM This report has been signed electronically. documented in this encounter Nursing Notes * Bethany Ferguson RN - 10/06/2024 11:01 AM EST Patient is alert, pain free, passing flatus and tolerating po fluids prior to discharge. Patient has been visited by Dr. Charlton. Patient has received and demonstrates understanding of discharge instructions. Patient ambulated to private auto accompanied by endo staff. * Kobe Boyce RN - 10/06/2024 10:28 AM EST See anesthesia record for medication administered during procedure. Kobe Boyce RN Specimen(s) and location(s) verified with physician post procedure 10:28 AM Kobe Boyce RN Pt claus colonoscopy well. Abd pressure applied to assist w/ advancement of the scope. Abd soft post proc. To recovery lying on L side. Pre cleaning of scope at the bedside started by salvage engineering technician. * Rachael Kim RN - 10/06/2024 9:45 AM EST Pt arrived and prepped for GI procedure. Given opportunity to ask questions. No concerns or complaints at this time. Pt ready for procedure and call light in reach. The following pt discharge instructions reviewed with pt prior to prodedure: No driving today. No alcohol today. No signing of legal documents. Rest as much as possible today and can return to normal activities tomorrow. No operating any heavy equipment today. Diet as tolerated. Pt verbalized understanding. documented in this encounter Plan of Treatment Upcoming Encounters Date Type Department Care Team (Late st Contact Info) Description 11/18/2024 8:00 AM EST Imaging Radiology [facility] [address] [place] [address] 11/25/2024 9:30 AM EST Telemedicine Urology [facility]ullen Samuel [address] [place] [address] Jeremy Tariq MD [address] [place] [phone], Telemed [facility] Urology Ex [address] [place] [address] 02/19/2025 8:00 AM EDT Office Visit Cardiology, [facility] [address] [place] [address] Tanika Dumas CRNP [address] [place] [id number] 04/30/2025 1:00 PM EDT Office Visit [facility] [address] [facility] [place] [phone] Rosanne Munoz PA-C [address] [place] [address] 12/03/2025 8:20 AM EST Office Visit [facility] [place] [phone] Thalia Ruiz PA-C [address] [place] [address] [place] [address] Scheduled Procedures Name Priority Associated Diagnoses Date/Ti me COLONOSCOPY FLEXIBLE PROXIMAL DIAGNOSTIC Recall History of colon polyps 10/06/2024 10:10 AM EST Health Maintenance Due Date Last Done Comments Adult Wellness Visit 2013 DXA Scan 12/01/2020 12/01/2013, 11/22, 09/30/2010 COVID-19 Vaccine ( season) 2024 08/10/2023, 09/06/2021, 12/30/2020, Additional history exists Influenza Vaccine (FLU shot) (#1) 2024 08/05/2022, 07/26/2020, 07/29/2019, Additional history exists Colonoscopy 10/06/2029 10/06/2024, 06/23, 07/15/2019, Additional history exists DTap/Tdap Vaccines (3 - Td or Tdap) 04/27/2031 04/27/2021, 09/20/2010 Pneumococcal Vaccine: 65+ Years Completed 01/13/2016, 09/05/2012 Zoster Vaccines Completed 07/22/2021, 07/23, 12/29/2019, Additional history exists RETIRED - COLONOSCOPY-EVERY 5 YRS AGES 18-100 Discontinued 10/06/2024, 07/15/2019, 07/15/2019, Additional history exists HPV (Gardasil) Vaccine Aged [...] Procedure Name Priority Date/Time Associated Diagnosis Comments COLONOSCOPY 10/06/2024 9:46 AM EST documented in this encounter Results * COLONOSCOPY (10/06/2024 9:46 AM EST) 10/06/2024 9:46 AM EST Narrative Procedure Note Devan Montes MD - 10/06/2024 9:46 AM EST [facility] Patient Name: Josselyn Willis Procedure Date: 10/06/2024 9:46 AM Date of : 1945 Admit Type: Outpatient Note Status:Finalized Date of : 1945 Admit Type: Outpatient Age: 79 Room: Endo 2 Gender: Female Note Status: Finalized Procedure: Colonoscopy Indications: High risk colon cancer surveillance: personalhistory of colon polyps Providers: Susie Charlton MD Patient Profile: Last Colonoscopy: June 2019. Referring MD: Devan Montes MD Medicines: See the Anesthesia note for documentation of theadministered medications Complications: No immediate complications. Procedure: Pre-Anesthesia Assessment: - Patient identification and proposed procedurewere verified prior to the procedure by the physician, the nurse and theanesthesiologist. The procedure was verified in the pre-procedure area. - Prior to the procedure, a History and Physicalwas performed, and patient medications, allergies and sensitivities werereviewed. The patient's tolerance of previous anesthesia was reviewed. - The risks and benefits of the procedure and thesedation options and risks were discussed with the patient. All questions wereanswered and informed consent was obtained. - The medication list for this patient has beenreviewed prior to the procedure and has been determined that the patient may proceed with the plannedstudy. Any medication changes made as a result of the findings of this procedure have beendiscussed with the patient and/or dealer compliance representative [facility] - After I obtained informed consent, the scope waspassed under direct vision. All instruments were visually inspected immediatelybefore and after removal from the patient to ensure they are fully intact. Throughout the procedure, the patient's bloodpressure, pulse, and oxygen saturations were monitored continuously. The [id number] ([id number]) was introduced through the anus and advanced to the terminalileum. The colonoscopy was somewhat difficult due to the patient's body habitus.Successful completion of the procedure was aided by using manual pressure, straighteningand shortening the scope to obtain bowel loop reduction and using scope torsion. Thepatient tolerated the procedure well. The quality of the bowel preparation wasadequate to identify polyps 6 mm and larger in size. Findings & Specimens: The examined terminal ileum appeared normal. The examined colon appeared normal. Internal hemorrhoids were found during retroflexion. The exam was otherwise without abnormality on direct and retroflexionviews. Impression: - The examined portion of the terminal ileumappeared normal. - The examined colon appeared normal. - Internal hemorrhoids. - The examination was otherwise normal on directand retroflexion views. Recommendation: - Given she is 79 - would not recommend furtherrecall. Susie Charlton MD 10/06/2024 10:28:50 AM This report has been signed electronically. us Devan Montes MD GASTRO LOWER Final Resu lt documented in this encounter Administered Medications Inactive Administered Medications - up to 3 most recent administrations Medication Order MAR Action Action Date Dose Rate Site Acetaminophen (Tylenol) tab 650 mg 650 mg, Oral, PRN Pain, Mild, Starting on Sun10/06/24 at 1035, Until Sun10/06/24 at 1502, For 1 dose, Maximum of 4 grams (4000 mg) per day., Post-op Isolyte-S pH 7.4 infusion Intravenous, at 75 mL/hr, for Outpatient patient Plasma-LYTE 148, isolyte-S, and isolyte-S pH 7.4 are considered equivalent - including for MAR barcode scanning., CONTINUOUS, Starting on Sun10/06/24 at 1000, Until Sun10/06/24 at 1502, Pre-Op Restarted 10/06/2024 10:28 AM EST Continue from Pre-Op 10/06/2024 10:06 AM EST 75 mL/hr New Bag 10/06/2024 9:44 AM EST 75 mL/hr 75 mL/hr documented in this encounter Active and Recently Administered Medications Times are shown in EST. Continuous Medication Order 10/04/2024 10/05/2024 10/06/2024 Isolyte-S pH 7.4 infusion Intravenous, at 75 mL/hr, for Outpatient patient Plasma-LYTE 148, isolyte-S, and isolyte-S pH 7.4 are considered equivalent - including for MAR barcode scanning., CONTINUOUS, Starting on Sun10/06/24 at 1000, Until Sun10/06/24 at 1502, Pre-Op 0944 (New Bag - Prov ider: Rachael Kim RN)1006 (Continue from Pre-Op - Provider: Maricarmen Dickerson CRNA)1027 (Paused - Provider: Maricarmen Dickerson CRNA - Comment: Switch to gravity)1028 (Restarted - Provider: Maricarmen Dickerson CRNA) PRN Medication Order 10/04/2024 10/05/2024 10/06/2024 Acetaminophen (Tylenol) tab 650 mg 650 mg, Oral, PRN Pain, Mild, Starting on Sun10/06/24 at 1035, Until Sun10/06/24 at 1502, For 1 dose, Maximum of 4 grams (4000 mg) per day., Post-op documented in this encounter Advance Directives * [...] Advance Directives occurred with: Patient Care Teams Electrical Engineering Director Relationship Specialty Start Date End Date Devan Montes MD [address] [facility] [place] [address] PCP - General Family Medicine 08/21/24 documented as of this encounter
--- OUTSIDE RECORDS SUMMARY | 2024-10-18 03:37 | External Medical Summary | Summary of Care ---
Author Name Unknown Organization [facility] Address [address] [facility] [place] [address] Phone [phone] Care Team Providers Care Operator Specialist Communications Name Role Phone Devan Montes MD Primary Care Provider +1- [phone] Reason for Visit * Reason Comments Follow Up Right knee * Precert (Within 10 days (routine)) - Authorized Specialty Diagnoses / Procedures Referred By Contyang t Referred To Contact Diagnoses Unilateral primary osteoarthritis, right knee Procedures IA EUFLEXXA INJ PER DOSE Gely Peters MD [address] [place] [address] Phone: tel: fax: Gely Peters MD [address] [place] [address] Phone: tel: fax: Referral ID Status Reason Start Date Expiration Date V isits Requested Visits Authorized [id number] Authorized Precert 01/01/2024 12/31/2024 999 [id number] Encounter Details Date Type Department Care Team (Latest Contact Info) Description 09/08/2024 8:45 AM EST Office Visit Orthopaedics [facility] [address] [place] [address] Gely Petres MD [address] [place] [address] Primary osteoarthritis of right knee* Allergies Active Allergy Reactions Criticality Noted Date Comments Adhesive Tape 08/01/2004 Skin red and irritated Bactrim Diarrhea Medium 10/03/2012 C-diff Latex 08/01/2004 Turns skin red and itches Latex 11/11/2019 Other reaction(s): Rash Trimethoprim Low 11/11/2019 Other reaction(s): Rash documented as of this encounter (statuses as of 09/08/2024) Medications buPROPion HCl ER (SR) 150 MG [...] OTHER DAY, (No instructions reported), Reported on 07/02/2024 Hospital, Clinic, or Other Facility Administered Medication Ordered Dose Route Frequency Start Date End Date Status Sodium Hyaluronate (Viscosup) (Euflexxa/Hyalgan) 20 MG/2ML inj 20 mgIndications:Primary osteoarthritis of right knee 20 mg IX ONCE 09/08/2024 09/08/2024 Ended documented as of this encounter (statuses as of 09/08/2024) Active Problems Problem Noted Date Diagnosed Date [...] as of this encounter (statuses as of 09/08/2024) Resolved Problems Problem Noted Date Diagnosed Date [...] as of this encounter (statuses as of 09/08/2024) Immunizations Name Administration Dates Next Due COVID-19 mRNA, LNP-s, No Pre serve, 2-Dose Series (Unii) 12/30/2020,12/04/2020 Pneumococcal Conjugate Vacc, 13 Valent (Prevnar) [...] 04/25/2024 Does the household have a re lar source of income? (Household - for ages [...] PM EST documented as of this encounter Progress Notes * Gely Peters MD - 09/08/2024 9:10 AM EST Josselyn Willis is a 79 year old female patient who presents today for gel injection series. Had a few months of relief from last gel injection series in January. Last steroid injection 12/03/2023 with 50% improvement symptoms. Some slight increased pain after last injection Right knee with no overlying skin changes. ICD-10-CM 1. Primary osteoarthritis of right knee M17.11 2nd injection performed today. Gely Peters MD 09/08/2024 PROCEDURE NOTE: KNEE INJECTION - ULTRASOUND Laterality: Right Time out: Prior to injection, a time out was called to confirm the administration of appropriate medicine, patient name, procedure and confirm to the best of our ability and knowledge the presence of any necessary risks and benefits. Patient verbalized understanding. Ultrasound utilized to guide injection. During the procedure, the needle was visualized in plane and was advanced with continuous ultrasound guidance to the appropriate anatomical landmark as described in the procedure. Ultrasound required due to failed previous injection done without fluoroscopic or ultrasound guidance Sterile technique applied using gloves, chlorhexadine, and alcohol swabs. Ethyl chloride spray for local anesthetic. Knee injected at superior-lateral recess 1.5 inch, 22 gauge needle. Injected with Euflexxa. Patient tolerated procedure with no significant bleeding or adverse reaction. Patient instructed to call or return to clinic for fever, warmth, unusual redness at injection sitefor potential infection. Patient also advised regarding post-procedural pain. Gely Peters MD Sports Medicine Primary Care Orthopaedics [facility] [address] [facility] [place] [address] documented in this encounter Nursing Notes * Yohana Stapleton MED ASSIST - 09/08/2024 8:55 AM EST 2nd right knee Euflexxa injection. documented in this encounter Plan of Treatment Upcoming Encounters Date Type Department Care Team (Latest Contact Info) Description 09/15/2024 8:30 AM EST Office Visit Orthopaedics [facility] [address] [facility] [place] [address] Gely Peters MD [address] [facility] [place] [address] 10/02/2024 10:20 AM EST Office Visit [address], [place] [address] Thalia Ruiz PA-C [address] [place] [address] [place] [address] 10/06/2024 10:15 AM EST Hospital Encounter ENDO [facility], Endoscopy Room [facility] [address] [place] [phone] Abeba Cai DO [address] [facility] [place] [address] 10/06/2024 10:15 AM EST - 10/06/2024 10:45 AM EST Surgery ENDO [facility], Endoscopy Room [facility] [address] [place] [phone] Abeba Cai DO [address] [place] [address] COLONOSCOPY FLEXIBLE PROXIMAL DIAGNOSTIC 11/18/2024 8:00 AM EST Imaging Radiology [facility] [address] [place] [address] 11/25/2024 9:30 AM EST Telemedicine Urology [facility]ullen Samuel [address] [place] [address] Jeremy Tariq MD 27 [place] [address] 7, Telemed [facility] Urology Ex Rm [address] [place] [address] 02/19/2025 8:00 AM EDT Office Visit Cardiology, [facility] [address] [place] [address] Tanika Dumas, TAO [address] [place] [address] 04/30/2025 1:00 PM EDT Office Visit [facility] [address] [facility] [place] [address] Rosanne Munoz PALuis AC [address] [facility] [place] [address] Scheduled Procedures Name Priority Associated Diagnoses Date/Ti [...] as of this encounter Visit Diagnoses Diagnosis Primary osteoarthritis of right knee- Primary Primary localized osteoarthrosis, lower leg History of colon polyps Personal history of colonic polyps documented in this encounter Administered Medications Inactive Administered Medications - up to 3 most recent administrations Medication Order MAR Action Action Date Dose Rate Site Sodium Hyaluronate (Viscosup) (Euflexxa/Hyalgan) 20 MG/2ML inj 20 mg 20 mg, Intra-Articular, ONCE, On 09/08/24 at 0930, For 1 doseIndications:Primary osteoarthritis of right knee Given 09/08/2024 9:09 AM EST 20 mg Knee Right documented in this encounter Advance Directives * [...] Advance Directives occurred with: Patient Care Teams Operator Specialist Communications Relationship Specialty Start Date End Date Devan Montes MD [address] [place] [facility] [place] [address] PCP - General Family Medicine 08/21/24 documented as of this encounter
--- OUTSIDE RECORDS SUMMARY | 2024-10-18 03:37 | External Medical Summary | Summary of Care ---
Author Name Unknown Organization [facility] Address [address] [facility] [place] [address] Phone [phone] Care Team Providers Care Civil Process Server Name Role Phone Devan Montes MD Primary Care Provider +1- [phone] Reason for Visit * Reason Comments Follow Up Pt here for full ski n exam. Hx of non-melanoma skin cancer. No concerns. Encounter Details Date Type Department Care Team (Late st Contact Info) Description 10/02/2024 10:20 AM EST Office Visit [facility] [address] [place] [address] Thalia Ruiz PA-C [address] [place] [address] [place] [address] Hx of nonmelanoma skin cancer*; Scar condition [...] examples; Think sport, Think baby, Jono, Babo botLaunchPoint, [employer]ba [employer] Back[employer], [place] baby. "Baby" products can be used for all ages. documented in this encounter Progress Notes * Rodger Wilson MD - 10/02/2024 4:02 PM EST I have seen and examined the patient via teledermatology review of chart note and photos with Thalia Ruiz PA-C. I have reviewed and agree with the assessment and plan. * Thalia Ruiz PA-C - 10/02/2024 10:20 [...] pt. Seen several SP providers in past. 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 REVIEW OF SYSTEMS: SKIN: No [...] HPI SKIN CANCER HX: basal cell carcinoma ([facility] 03/2020) Reviewed[facility] lab work(s)/pathology report(s) as well as [...] pubis), buttocks, and anus completed: 1. [facility]-White horizontal atrophic scar. 2. Trunk/bilat arms and legs-About 35 total; 2-5mm light and light-medium brown macules and very few soft papules. 3. Trunk/bilat arms and legs-Some sharply defined, variegated brown, waxy flat papules with velvetyto finely verrucous surfaces. 4. Face/neck/trunk/bilat arms and legs-Many well defined light to medium brown homogenous stellate macules. ASSESS MENT/PLAN: 1. Scar s/p basal cell carcinoma on [facility]-No sign of recurrence. 2. Nevi on trunk/bilat [...] treatment. Thalia Ruiz PA-C 10/02/2024 10:[facility] [address] [facility] [address] documented in this encounter Nursing Notes * [...] ENDO OSSC, Endoscopy Room [facility] [address] [place] [phone] Abeba Cai, DO [address] [place] [address] 10/06/2024 10:15 AM EST - 10/06/2024 10:45 AM EST Surgery ENDO [facility], Endoscopy Room [facility] [address] [place] [address] Abeba Cai, DO [address] [place] [address] COLONOSCOPY FLEXIBLE PROXIMAL DIAGNOSTIC 11/18/2024 8:00 AM EST Imaging Radiology [facility] [address] [place] [address] 11/25/2024 9:30 AM EST Telemedicine Urology Cullen Samuel [address] [place] [address] Jeremy Tariq MD 27 [place] [address] 7, Telemed [facility] Urology Ex Rm [address] [place] [address] 02/19/2025 8:00 AM EDT Office Visit Cardiology, [facility] [address] [place] [address] Tanika Dumas CRNP [address] [place] [address] 04/30/2025 1:00 PM EDT Office Visit [facility] [address] [place] [address] Rosanne Munoz PA-C [address] [place] [address] 12/03/2025 8:20 AM EST Office Visit [facility] [address] [place] [address] Thalia uRiz PA-C [address] [place] [address] [place] [address] Scheduled Procedures Name Priority Associated Diagnoses Date/Ti [...] study not interpreted or resulted by a [place] Feixiangren Information Technologyer or [employer] contracted radiologist. us Thalia Ruiz PA-C RADIOLOGY ([facility] ) Final Result documented in [...] Advance Directives occurred with: Patient Care Teams Civil Process Server Relationship Specialty Start Date End Date Devan Montes MD [address] [facility] [place] [address] PCP - General Family Medicine 08/21/24 documented as of this encounter
--- OUTSIDE RECORDS SUMMARY | 2024-10-18 03:37 | External Medical Summary | Summary of Care ---
Author Name Unknown Organization [facility] Address [address] [facility] [place] [address] Phone [phone] Care Team Providers Care Swatch Checker Name Role Phone Devan Montes MD Primary Care Provider +1- [phone] Reason for Visit * Reason Comments Follow Up Right knee * Precert (Within 10 days (routine)) - Authorized Specialty Diagnoses / Procedures Referred By Contac t Referred To Contact Diagnoses Unilateral primary osteoarthritis, right knee Procedures FL EUFLEXXA INJ PER DOSE Gely Peters MD [address] [place] [address] Phone: tel: fax: Gely Peters MD [address] [place] [address] Phone: tel: fax: Referral ID Status Reason Start Date Expiration Date V isits Requested Visits Authorized [id number] Authorized Precert 01/01/2024 12/31/2024 999 99 Encounter Details Date Type Department Care Team (Latest Contact Info) Description 09/15/2024 8:30 AM EST Office Visit Orthopaedics [facility] [address] [place] [address] Gely Peters MD [address] [place] [address] Primary osteoarthritis of right knee* Allergies Active Allergy Reactions Criticality Noted Date Comments Adhesive Tape 08/01/2004 Skin red and irritated Bactrim Diarrhea Medium 10/03/2012 C-diff Latex 08/01/2004 Turns skin red and itches Latex 11/11/2019 Other reaction(s): Rash Trimethoprim Low 11/11/2019 Other reaction(s): Rash documented as of this encounter (statuses as of 09/15/2024) Medications buPROPion HCl ER (SR) 150 MG [...] of right knee 20 mg IX ONCE 09/15/2024 09/15/2024 Ended documented as of this encounter (statuses as of 09/15/2024) Active Problems Problem Noted Date Diagnosed Date [...] as of this encounter (statuses as of 09/15/2024) Resolved Problems Problem Noted Date Diagnosed Date [...] as of this encounter (statuses as of 09/15/2024) Immunizations Name Administration Dates Next Due COVID-19 mRNA, LNP-s, No Pre serve, 2-Dose Series (Vantrix) 12/30/2020,12/04/2020 Pneumococcal Conjugate Vacc, 13 Valent (Prevnar) [...] Progress Notes * Gely Peters MD - 09/15/2024 9:16 AM EST Josselyn Willis is a 79 year old female patient who presents today for gel injection series. Had a few months of relief from last gel injection series in January. Last steroid injection 12/03/2023 with 50% improvement symptoms. Some slight increased pain after last injection Right knee with no overlying skin changes. ICD-10-CM 1. Primary osteoarthritis of right knee M17.11 3rd injection performed today. Gely Peters MD 09/08/2024 [...] Peters MD Sports Medicine Primary Care Orthopaedics [facility] [address] [place] [address] documented in this encounter Nursing Notes * Yohana Stapleton MED ASSIST - 09/15/2024 8:22 AM EST 3rd right knee Euflexxa. Reports no concerns since last injection. documented in this encounter Plan of Treatment Upcoming Encounters Date Type Department Care Team (Latest Contact Info) Description 10/02/2024 10:20 AM EST [facility] [place] [phone] Thalia Ruiz PA-C [address] [place] [address] [place] [address] 10/06/2024 10:15 AM EST Hospital Encounter ENDO OSS, Endoscopy Room [facility] [address] [place] [phone] Abeba Cai, [address] [place] [address] 10/06/2024 10:15 AM EST - 10/06/2024 10:45 AM EST Surgery ENDO [facility], Endoscopy Room [facility] [address] [place] [phone] Abeba Cai DO [address] [place] [address] COLONOSCOPY FLEXIBLE PROXIMAL DIAGNOSTIC 11/18/2024 8:00 AM EST Imaging Radiology [facility] [address] [facility] [place] [address] 11/25/2024 9:30 AM EST Telemedicine Urology [place] [facility] [address] [place] [address] Jeremy Tariq MD [address] [place] [address] 7, Telemed [facility] Urology Ex Rm [address] [place] [address] 02/19/2025 8:00 AM EDT Office Visit Cardiology, [facility] [address] [facility] [place] [address] Tanika Dumas CRNP 132 [facility] [place] [address] 04/30/2025 1:00 PM EDT Office Visit [facility] [phone] Rosanne Munoz PA-C [address] [place] [address] Scheduled Procedures Name Priority Associated Diagnoses Date/Ti [...] 20 mg 20 mg, Intra-Articular, ONCE, On 09/15/24 at 0930, For 1 doseIndications:Primary osteoarthritis of right knee Given 09/15/2024 9:00 AM EST 20 mg Knee Right documented [...] Advance Directives occurred with: Patient Care Teams Swatch Checker Relationship Specialty Start Date End Date Devan Montes MD [address] [place] [address] PCP - General Family Medicine 08/21/24 documented as of this encounter
--- OUTSIDE RECORDS SUMMARY | 2024-10-18 03:37 | External Medical Summary | Summary of Care ---
Author Name Unknown Organization [facility] Address [address] [place] [address] Phone [phone] Care Team Providers Care Literacy Specialist Name Role Phone Tung Valdes MD Primary Care Provider +1- [phone] Reason for Referral * Ancillary Services (Within 30 days (routine)) - Authorized Specialty Diagnoses / Procedures Referred By Contac t Referred To Contact Gastroenterology Diagnoses Hx of colonic polyps Tung Valdes MD [address] [place] [address] Phone: tel: fax: Referral ID Status Reason Start Date Expiration Date Visits Requested Visits Authorized [id number] Authorized Ancillary Services Required 4 999 999 Question Answer Referral Priority Within 30 days (routine) Where should this appointment be scheduled? [facility] Comments ALERT: Do not order for pediatric patients (18 years or younger). Cancel off screen and order PEDS GASTROENTEROLOGY CONSULT (Type: 1 visit only-Evaluate and Treat) The following Pt. Instructions are available: - Gastro Colonoscopy Prep Instructions [27840] - Gastro Colonoscopy Prep Instructions (Indonesian Version) [70719] Go to the Pt. Instructions section within the Visit Navigator to access. Colonoscopy ASGE Guidelines: Postadenoma resection: 1-2 tubular adenomas of less than 1 cm (5 yr intervals) ADDITIONAL INFORMATION 1. Is the patient on Coumadin? No 2. Is the patient on Pradaxa? No Reason for Visit * Reason Onset Date Comments Order Request 09/03/2024 Encounter Details Date Type Department Care Team (Late st Contact Info) Description 09/03/2024 [facility] [address] [place] [address] Abeba Cai DO [address] [place] [address] Order Request Allergies Active Allergy Reactions Criticality Noted Date Comments Adhesive Tape 08/01/2004 Skin red and irritated Bactrim Diarrhea Medium 10/03/2012 C-diff Latex 08/01/2004 Turns skin red and itches Latex 11/11/2019 Other reaction(s): Rash Trimethoprim Low 11/11/2019 Other reaction(s): Rash documented as of this encounter (statuses as of 09/03/2024) Medications buPROPion HCl ER (SR) 150 MG [...] DAY, (No instructions reported), Reported on 07/02/2024 documented as of this encounter (statuses as of 09/03/2024) Active Problems Problem Noted Date Diagnosed Date [...] as of this encounter (statuses as of 09/03/2024) Resolved Problems Problem Noted Date Diagnosed Date [...] as of this encounter (statuses as of 09/03/2024) Immunizations Name Administration Dates Next Due COVID-19 mRNA, LNP-s, No Pre serve, 2-Dose Series ([employer]) 12/30/2020,12/04/2020 Pneumococcal Conjugate Vacc, 13 Valent (Prevnar) [...] PM EST documented as of this encounter Miscellaneous Notes * Addendum Note - Tung Valdes MD - 09/03/2024 5:40 PM ESTAddended by: TUNG VALDES on: 09/03/2024 05:40 PM Modules accepted: Orders * Telephone Encounter - Tung Valdes MD - 09/03/2024 5:40 PM EST Order signed - please assist * Telephone Encounter - Faby Bailey OSA - 09/03/2024 11:36 AM EST Pt is having colon for History of colon polyps [Z86.0100] Please place order Thank you SENA Lucas 09/03/2024 11:37 AM documented in this encounter Plan of Treatment Upcoming Encounters Date Type Department Care Team (Latest Contact Info) Description 09/08/2024 8:45 AM EST Office Visit Orthopaedics [facility] [address] [place] [address] Gely Peters MD [address] [place] [address] 09/15/2024 8:30 AM EST Office Visit Orthopaedics [facility] [address] [place] [address] Gely Peters MD [address] [place] [address] 10/02/2024 10:20 AM EST Office Visit [address], [place] [address] Thalia Ruiz PA-C [address] [place] [address] [place] [address] 10/06/2024 10:15 AM EST Hospital Encounter ENDO [facility], Endoscopy Room [facility] [address] [place] [phone] Abeba Cai DO [address] [place] [address] 10/06/2024 10:15 AM EST - 10/06/2024 10:45 AM EST Surgery [facility], [facility] [address] [place] [phone] Abeba Cai DO [address] [place] [address] COLONOSCOPY FLEXIBLE PROXIMAL DIAGNOSTIC 11/18/2024 8:00 AM EST Imaging Radiology [facility] [address] [facility] [place] [address] 11/25/2024 9:30 AM EST Telemedicine Urology [address] [place] [address] Jeremy Tariq MD [address] [place] [address] 7, Telemed [facility] Urology Ex Rm [address] [place] [address] 02/19/2025 8:00 AM EDT Office Visit Cardiology, [facility] 132 [facility] [place] [address] Tanika Dumas CRNP 132 [facility] [place] [address] 04/30/2025 1:00 PM EDT Office Visit [facility] [address] [place] [address] Rosanne Munoz PALuis AC [address] [place] [address] Scheduled Procedures Name Priority Associated Diagnoses Date/Ti me COLONOSCOPY FLEXIBLE PROXIMAL DIAGNOSTIC Recall History of colon polyps 10/06/2024 10:15 AM EST Scheduled Referrals Name Type Priority Associated Diagnoses Orde r Schedule COLONOSCOPY, GI REFERRAL OP Referral Within 30 days (routine) Hx of colonic polyps Ordered: 09/03/2024 Health Maintenance Due Date Last Done Comments [...] as of this encounter Visit Diagnoses Diagnosis Hx of colonic polyps- Primary Personal history of colonic polyps History of colon polyps Personal history of [...] Advance Directives occurred with: Patient Care Teams Literacy Specialist Relationship Specialty Start Date End Date Tung Valdes MD [address] [place] [address] PCP - General Family Medicine 08/21/24 documented as of this encounter
--- OUTSIDE RECORDS SUMMARY | 2024-10-18 03:37 | External Medical Summary | Summary of Care ---
Author Name Unknown Organization [facility] Address [address] [place] [address] Phone [phone] Care Team Providers Care Oilfield Plant And Field Operator Name Role Phone Devan Montes MD Primary Care Provider +1- [phone] Reason for Visit * Reason Onset Date Comments Advice 06/25/2024 Surgery 06/25/2024 Encounter Details Date Type Department Care Team (Late st Contact Info) Description 06/25/2024 Telephone Urology, [facility] [address] [facility] [id number], Scheduling [address] [place] [address] Advice; Surgery Allergies Active Allergy Reactions Criticality Noted Date Comments Adhesive Tape 08/01/2004 Skin red and irritated Bactrim Diarrhea Medium 10/03/2012 C-diff Latex 08/01/2004 Turns skin red and itches Latex 11/11/2019 Other reaction(s): Rash Trimethoprim Low 11/11/2019 Other reaction(s): Rash documented as of this encounter (statuses as of 09/24/2024) Medications buPROPion HCl ER (SR) 150 MG Oral Tablet Extended Release 12 Hour (WELLBUTRIN SR) Take 1 Tablet by mouth in the morning. 06/10/20 20 Active B-12 1000 MCG Oral Capsule Take 1 Capsule by mouth in the morning. Active Acetaminophen 325 MG Oral Tablet Take 1 Tablet by mouth every 6 hours as needed. Active Gabapentin 300 MG Oral Capsule (Neurontin) Take 1 Capsule by mouth every evening. 04/12/20 22 Active Betamethasone Dipropionate 0.05 % External Lotion (Diprosone) 09/19/20 22 Active lamoTRIgine 100 MG Oral Tablet (LaMICtal) TAKE 1 TABLET BY MOUTH EVERYDAY AT BEDTIME 12/23/19 23 Active Desvenlafaxine ER 100 MG Oral Tablet Extended Release 24 Hour Take 100 mg by mouth at bedtime. Active Pantoprazole Sodium 40 MG Oral Tablet Delayed Release (Protonix) Take 1 Tablet by mouth in the morning and 1 Tablet in the evening. 180 Tablet 3 04/25/20 24 Active Rosuvastatin Calcium 5 MG Oral Tablet (Crestor) One tab by mouth daily 90 Tablet 2 06/04/20 24 Active Additional Information Patient taking differently: EVERY OTHER DAY, (No instructions reported), Reported on 07/02/2024 Ciprofloxacin HCl 500 MG Oral Tablet (Cipro)Indicati ons:Acute cystitis with hematuria Take 1 Tablet by mouth in the morning and 1 Tablet before bedtime. Do all this for 3 days. 6 Tablet 05/11/20 24 2023 Discontinued Nitrofurantoin Monohyd Macro 100 MG Oral Capsule (Macrobid)Indic ations:Acute cystitis with hematuria Take 1 Capsule by mouth in the morning and 1 Capsule before bedtime. Do all this for 7 days. With food until gone. 14 Capsule 05/20/20 24 2023 Discontinued documented as of this encounter (statuses as of 09/24/2024) Active Problems Problem Noted Date Diagnosed Date [...] as of this encounter (statuses as of 09/24/2024) Resolved Problems Problem Noted Date Diagnosed Date [...] as of this encounter (statuses as of 09/24/2024) Immunizations Name Administration Dates Next Due COVID-19 mRNA, LNP-s, No Pre serve, 2-Dose Series ([employer] Posh[employer]) 12/30/2020,12/04/2020 Pneumococcal Conjugate Vacc, 13 Valent (Prevnar) [...] as of this encounter Miscellaneous Notes * Telephone Encounter - Lydia Rodriguez LPN - 06/26/2024 2:33 PM EDT Spoke with pt's spouse. Discharged this morning. Pt is stable, resting at this time. Advised that there are no sooner openings at this time for procedure, but will have schedulers keep her in mind with any possible cancellations. * Telephone Encounter - Mary Munguia OSA - 06/25/2024 11:48 AM EDT No sooner surgery dates available. * Telephone Encounter - Jeremy Tariq MD - 06/25/2024 11:45 AM EDT Notes reviewed. It would seem patient is being stented but stone will remain in place. She can keepher current appointment for stone removal if she desires. Unclear if she is being scheduled for definitive stone surgery by Urology service at [facility]. Thx, HM * Telephone Encounter - Lydia Rodriguez LPN - 06/25/2024 11:00 AM EDT Patient is currently admitted to [facility]. Per urology consultation, patient is having left ureteral stent placed today by Dr Reese. Records printed and placed on Dr Tariq's desk for review. * Telephone Encounter - Belkis Morrow OSA - 06/25/2024 9:27 AM EDT Pt's spouse called to Make Dr. Tariq aware she is currently in the hospital due to severe pain from her Kidney stones. They are unable to do surgery now at the hospital, caller wanted to know if Pt's 07/07/[address] Tariq can be move to a sooner date. Please call spouse to advise. documented in this encounter Plan of Treatment Upcoming Encounters Date Type Department Care Team (Latest Contact Info) Description 10/02/2024 10:20 AM EST Office Visit [facility] [address] [place] [phone] Thalia Ruiz PA-C [address] [place] [address] [place] [address] 10/06/2024 10:15 AM EST Hospital Encounter ENDO OSS, Endoscopy Room [facility] [address] [place] [phone] Abeba Cai DO [address] [place] [address] 10/06/2024 10:15 AM EST - 10/06/2024 10:45 AM EST Surgery ENDO OSS, Endoscopy Room [facility] [address] [place] [phone] Abeba Cai DO [address] [place] [address] COLONOSCOPY FLEXIBLE PROXIMAL DIAGNOSTIC 11/18/2024 8:00 AM EST Imaging Radiology [facility] [address] [place] [address] 11/25/2024 9:30 AM EST Telemedicine Urology [facility] [address] [place] [address] Jeremy Tariq MD [address] [place] [address] 7, Telemed [facility] Urology Ex Rm [address] [place] [address] 02/19/2025 8:00 AM EDT Office Visit Cardiology, [facility] [address] [place] [address] Tanika Dumas CRNP 132 [facility] [place] [address] 04/30/2025 1:00 PM EDT Office Visit [facility] [address] [facility] [place] [phone] Rosanne Munoz PA-C [facility] [address] Scheduled Procedures Name Priority Associated Diagnoses Date/Ti [...] Not on filedocumented as of this encounter Advance Directives * Full Code [...] Advance Directives occurred with: Patient Care Teams Oilfield Plant And Field Operator Relationship Specialty Start Date End Date Devan Montes MD [address] [place] [address] PCP - General Family Medicine 08/21/24 documented as of this encounter
--- OUTSIDE RECORDS SUMMARY | 2024-10-18 03:37 | External Medical Summary | Summary of Care ---
Author Name Unknown Organization [facility] Address [address] [place] [address] Phone [phone] Care Team Providers Care Race Car Mechanic Name Role Phone Tung Valdes MD Primary Care Provider +1- [phone] Reason for Referral * Ancillary Services (Within 30 days (routine)) - Authorized Specialty Diagnoses / Procedures Referred By Contac t Referred To Contact Gastroenterology Diagnoses Hx of colonic polyps Tung Valdes MD [address] [place] [address] Phone: tel: fax: Referral ID Status Reason Start Date Expiration Date Visits Requested Visits Authorized [id number] Authorized Ancillary Services Required 4 [phone] Question Answer Referral Priority Within 30 days (routine) Where should this appointment be scheduled? [facility] Comments ALERT: Do not order for pediatric patients (18 years or younger). Cancel off screen and order PEDS GASTROENTEROLOGY CONSULT (Type: 1 visit only-Evaluate and Treat) The following Pt. Instructions are available: - Gastro Colonoscopy Prep Instructions [64219] - Gastro Colonoscopy Prep Instructions (Ukrainian Version) [42526] Go to the Pt. Instructions section within [...] st Contact Info) Description 09/03/2024 [facility] [address] [place] [address] Abeba Cai DO [address] [place] [address] Order Request Allergies Active Allergy Reactions Criticality Noted Date Comments Adhesive Tape 08/01/2004 Skin red and irritated Bactrim Diarrhea Medium 10/03/2012 C-diff Latex 08/01/2004 Turns skin red and itches Latex 11/11/2019 Other reaction(s): Rash Trimethoprim Low 11/11/2019 Other reaction(s): Rash documented as of this encounter (statuses as of 09/04/2024) Medications buPROPion HCl ER (SR) 150 MG [...] as of this encounter (statuses as of 09/04/2024) Active Problems Problem Noted Date Diagnosed Date [...] as of this encounter (statuses as of 09/04/2024) Resolved Problems Problem Noted Date Diagnosed Date [...] as of this encounter (statuses as of 09/04/2024) Immunizations Name Administration Dates Next Due COVID-19 mRNA, LNP-s, No Pre serve, 2-Dose Series (Micromidas) 12/30/2020,12/04/2020 Pneumococcal Conjugate Vacc, 13 Valent (Prevnar) [...] encounter Miscellaneous Notes * Telephone Encounter - Kobe Smith OSA - 09/04/2024 2:08 PM EST The department does their own scheduling. unable * Addendum Note - Tung Valdes MD [...] Description 09/08/2024 8:45 AM EST Office Visit [facility] [address] [place] [address] Gely Peters MD [address] [place] [address] 09/15/2024 8:30 AM EST Office Visit [facility] [address] [place] [address] Gely Peters MD [address] [place] [address] 10/02/2024 10:20 AM EST Office Visit [address], [place] [address] Thalia Ruiz, PAChris [address] [place] [address] [place] [address] 10/06/2024 10:15 AM EST Hospital Encounter ENDO OSSC, Endoscopy Room O[facility] [address] [place] [phone] Abeba Cai DO [address] [place] [address] 10/06/2024 10:15 AM EST - 10/06/2024 10:45 AM EST Surgery ENDO OSSC, Endoscopy Room O[facility] [address] [place] [phone] Abeba Cai DO [address] [place] [address] COLONOSCOPY FLEXIBLE PROXIMAL DIAGNOSTIC 11/18/2024 8:00 AM EST Imaging Radiology [facility] [address] [place] [address] 11/25/2024 9:30 AM EST Telemedicine Urology Cullen Samuel [address] [place] [address] Jeremy Tariq MD [address] [place] [address] 7, Telemed [facility] Urology Ex Rm [address] [place] [address] 02/19/2025 8:00 AM EDT Office Visit Cardiology, [facility] [address] [place] [address] Tanika Dumas CRNP 132 [facility] [place] [address] 04/30/2025 1:00 PM EDT Office Visit [facility] [address] [place] [address] Rosanne Munoz PA-C [address] [place] [address] Scheduled Procedures Name Priority Associated Diagnoses Date/Ti [...] Advance Directives occurred with: Patient Care Teams Race Car Mechanic Relationship Specialty Start Date End Date Tung Valdes MD [address] [facility] [place] [address] PCP - General Family Medicine 08/21/24 documented as of this encounter
--- OUTSIDE RECORDS SUMMARY | 2024-10-18 03:38 | External Medical Summary | Summary of Care ---
Author Name Unknown Organization [facility] Address [address] [facility] [place] [address] Phone [phone] Care Team Providers Care Shellfish Shucker Name Role Phone Devan Montes MD Primary Care Provider +1- [phone] Reason for Visit * Reason Onset Date Comments Order Request 09/03/2024 Encounter Details Date Type Department Care Team (Late st Contact Info) Description 09/03/2024 Telephone Gastroenterology, [facility] [address] [place] [address] Abeba Cai DO [address] [place] [address] Order Request Allergies Active Allergy Reactions Criticality [...] encounter Miscellaneous Notes * Telephone Encounter - Faby Bailey OSA - 09/03/2024 11:36 AM EST Pt is having colon for History of colon polyps [Z86.0100] Please place order Thank you SENA Lucas 09/03/2024 11:37 AM documented in this encounter Plan of Treatment Upcoming Encounters Date Type Department Care Team (Latest Contact Info) Description 09/08/2024 8:45 AM EST Office Visit [facility] [address] [place] [address] Gely Peters MD [address] [place] [address] 09/15/2024 8:30 AM EST Office Visit [facility] [address] [place] [address] Gely Peters MD [address] [place] [address] 10/02/2024 10:20 AM EST Office Visit [address], [place] [address] Thalia Ruiz, RAJIV [address] [place] [address] [place] [address] 10/06/2024 10:15 AM EST Hospital Encounter ENDO OSSC, Endoscopy Room O[facility] [address] [place] [phone] Abeba Cai DO [address] [place] [address] 10/06/2024 10:15 AM EST - 10/06/2024 10:45 AM EST Surgery ENDO OSSC, Endoscopy Room [facility] [address] [place] [address] Abeba Cai DO [address] [place] [address] COLONOSCOPY FLEXIBLE PROXIMAL DIAGNOSTIC 11/18/2024 8:00 AM EST Imaging Radiology [facility] [address] [place] [address] 11/25/2024 9:30 AM EST Telemedicine Urology Cullen Samuel [address] [place] [address] Jeremy Tariq MD [address] [place] [address] 7, Telemed [facility] Urology Ex Rm [address] [place] [address] 02/19/2025 8:00 AM EDT Office Visit Cardiology, [facility] [address] [place] [address] Tanika Dumas CRNP [address] [place] [address] 04/30/2025 1:00 PM EDT Office Visit [facility] [address] [place] [address] Rosanne Munoz PAChris [address] [place] [address] Scheduled Procedures Name Priority Associated Diagnoses Date/Ti [...] Advance Directives occurred with: Patient Care Teams Shellfish Shucker Relationship Specialty Start Date End Date Devan Montes MD [address] [facility] [place] [address] PCP - General Family Medicine 08/21/24 documented as of this encounter
--- OUTSIDE RECORDS SUMMARY | 2024-10-18 03:38 | External Medical Summary | Summary of Care ---
Author Name Unknown Organization [facility] Address [address] [place] [address] Phone [phone] Care Team Providers Care Inspector Outside Steam Distribution Name Role Phone Devan Montes MD Primary Care Provider +1- [phone] Encounter Details Date Type Department Care Team (Latest Contact Info) Description 08/29/2024 9:25 AM EST - 08/29/2024 11:59 PM EST Hospital Encounter Radiology, [place] [address] [place] [address] Arrived Discharge Disposition: Home - Self Care Allergies Active Allergy Reactions Criticality Noted Date Comments Adhesive Tape 08/01/2004 Skin red and irritated Bactrim Diarrhea Medium 10/03/2012 C-diff Latex 08/01/2004 Turns skin red and itches Latex 11/11/2019 Other reaction(s): Rash Trimethoprim Low 11/11/2019 Other reaction(s): Rash documented as of this encounter (statuses as of 08/30/2024) Medications buPROPion HCl ER (SR) 150 MG [...] as of this encounter (statuses as of 08/30/2024) Active Problems Problem Noted Date Diagnosed Date [...] as of this encounter (statuses as of 08/30/2024) Resolved Problems Problem Noted Date Diagnosed Date [...] as of this encounter (statuses as of 08/30/2024) Immunizations Name Administration Dates Next Due COVID-19 [...] Department Care Team (Latest Contact Info) Description 09/01/2024 8:30 AM EST Office Visit Orthopaedics [facility] 132 [facility] [place] [address] Gely Peters MD [address] [place] [address] 09/08/2024 8:45 AM EST Office Visit Orthopaedics [facility] [address] [place] [address] Gely Peters MD [address] [place], [place] [address] 09/15/2024 8:30 AM EST Office Visit [facility] [address] [place] [address] Gely Peters MD [address] [place] [address] 10/02/2024 10:20 AM EST Office Visit [address] [place] [address] Thalia Ruiz PA-C [address] [place] [address] Dr [place], [place] [address] 10/06/2024 10:15 AM EST Hospital Encounter ENDO OSS, Endoscopy Room [facility] [address] [place] [phone] Abeba Cai, DO [address] [place] [address] 10/06/2024 10:15 AM EST - 10/06/2024 10:45 AM EST Surgery ENDO OSSC, Endoscopy Room [facility] [address] [place] [address] Abeba Cai, DO [address] [place] [address] COLONOSCOPY FLEXIBLE PROXIMAL DIAGNOSTIC 11/18/2024 8:00 AM EST Imaging Radiology [facility] [address] [place] [address] 11/25/2024 9:30 AM EST Telemedicine Urology [facility] [address] [place] [address] Jeremy Tariq MD [address] [place] [address], Telemed [facility] Urology Ex Rm [address] [place] [address] 02/19/2025 8:00 AM EDT Office Visit Cardiology, [facility] 132 [facility] [place] [address] Tanika Dumas CRNP [address] [place] [address] 04/30/2025 1:00 PM EDT Office Visit [facility] [address] [place] [address] Rosanne Munoz PALuis AC [address] [place] [address] Scheduled Procedures Name Priority Associated Diagnoses Date/Ti [...] Procedure Name Priority Date/Time Associated Diagnosis Comments XR KNEE 4 OR MORE VIEWS Routine 08/29/2024 9:44 AM EST Right knee pain, unspecified chronicity documented in this encounter Results * XR KNEE 4 OR MORE VIEWS (08/29/2024 9:44 AM EST) Anatomical Region Laterality Modality Knee, Lower Extremity Computed R adiography 08/30/2024 9:44 AM EST Narrative 08/30/2024 9:42 AM EST EXAM: RT/STAND XR KNEE 4 OR MORE VIEWS HISTORY: right knee pain COMPARISON:- FINDINGS / IMPRESSION: No acute displaced fracture or dislocation. No joint space narrowing or erosion. No joint effusion Procedure Note Richard Horta MD - 08/30/2024 EXAM: RT/STAND XR KNEE 4 OR MORE VIEWS HISTORY: right knee pain COMPARISON:- FINDINGS / IMPRESSION: No acute displaced fracture or dislocation. No joint space narrowing orerosion. No joint effusion us Garrett Flores MD RADIOLOGY (RAD GENERAL) Olga l Result documented in this encounter Advance Directives [...] Advance Directives occurred with: Patient Care Teams Inspector Outside Steam Distribution Relationship Specialty Start Date End Date Devan Montes MD [address] [facility] [place] [address] PCP - General Family Medicine 08/21/24 documented as of this encounter
--- OUTSIDE RECORDS SUMMARY | 2024-10-18 03:38 | External Medical Summary | Summary of Care ---
Author Name Unknown Organization [facility] Address [address] [facility] [place] [address] Phone [phone] Care Team Providers Care Rough Planer Tender Name Role Phone Devan Montes MD Primary Care Provider +1- [phone] Reason for Visit * Reason Comments Follow Up Right knee * Precert (Within 10 days (routine)) - Authorized Specialty Diagnoses / Procedures Referred By Contac t Referred To Contact Diagnoses Unilateral primary osteoarthritis, right knee Procedures [place] EUFLEXXA INJ PER DOSE Gely Peters MD [address] [address] Phone: tel: fax: Gely Peters MD [address] [place] [address] Phone: tel: fax: Referral ID Status Reason Start Date Expiration Date V isits Requested Visits Authorized [id number] Authorized Precert 01/01/2024 12/31/2024 999 99 Encounter Details Date Type Department Care Team (Latest Contact Info) Description 09/01/2024 8:30 AM EST Office Visit Orthopa[facility] [address] [address] Gely Peters MD [address] [place] [address] Primary osteoarthritis of right knee*; Tear of lateral meniscus of right knee, current, unspecified tear type, subsequent encounter Allergies Active Allergy Reactions Criticality Noted Date Comments Adhesive Tape 08/01/2004 Skin red and irritated Bactrim Diarrhea Medium 10/03/2012 C-diff Latex 08/01/2004 Turns skin red and itches Latex 11/11/2019 Other reaction(s): Rash Trimethoprim Low 11/11/2019 Other reaction(s): Rash documented as of this encounter (statuses as of 09/01/2024) Medications buPROPion HCl ER (SR) 150 MG [...] MG/2ML inj 20 mgIndications:Primary osteoarthritis of right knee,Tear of lateral meniscus of right knee, current, unspecified tear type, subsequent encounter 20 mg IX ONCE 09/01/2024 4 Ended documented as of this encounter (statuses as of 09/01/2024) Active Problems Problem Noted Date Diagnosed Date [...] as of this encounter (statuses as of 09/01/2024) Resolved Problems Problem Noted Date Diagnosed Date [...] as of this encounter (statuses as of 09/01/2024) Immunizations Name Administration Dates Next Due COVID-19 [...] No 04/25/2024 Does the household have a [facility] source of income? (Household - for ages [...] Progress Notes * Gely Peters MD - 09/01/2024 8:43 AM EST Josselyn Willis is a 79 year old female who presents for follow up of right knee injury to [facility]. Josselyn Willis is here unaccompanied History: Chief Complaint Patient presents with Follow Up Right knee Nursing Notes: Yohana Stapleton, MED ASSIST 09/01/24 0821 Signed 1st right knee Euflexxa injection. Previous series, 02/01/24 I last saw patient in January of 2024 for the completion of the Euflexxa series. She had fairly good relief of symptoms from this, but not 100%. Was evaluated by Dr. Barth per the recommendation of some family members. Was going to get arthroscopic surgery for a partial meniscectomy due to the meniscus tear but this was denied by insurance. She then thought sought out a 2nd opinion by Dr. Flores. Recommended to hold off on knee replacement due to positive response to injections. Here today for another Euflexxa injection series. Review of systems: All others negative except those noted above in HPI. Physical Exam There were no vitals filed for this visit. Estimated body mass index is 23.63 kg/m as calculated from the following: Height as of 08/29/24: 1.651 m (5' 5"). Weight as of 08/29/24: 64.4 kg (142 lb). General: generally well-nourished and in no acute distress HEENT: normocephalic, atraumatic, sclera anicteric. Psych: mood and affect normal , cooperative Card: Peripheral pulses: normal in affected extremity (s) Resp: equal chest rise, non-tachypneic, non-labored breathing Skin: no rash, normal Neuro: Sensation: normal on affected extremity (s) MSK: Gait/station/stance: normal reciprocal gait, non antalgic without an assistive device on smooth flat indoor surface. Knee Exam, Bilateral No obvious deformity, no redness, swelling, warmth, bruising, abrasion. Alignment normal. Range of motion 0-120. Radiology (I have personally reviewed the following films): No new images Assessment and Plan: ICD-10-CM 1. Primary osteoarthritis of right knee M17.11 2. Tear of lateral meniscus of right knee, current, unspecified tear type, subsequent encounter S83.281D Josselyn is a very pleasant 79-year-old female seen today for follow up of right knee pain. After seeking surgical opinion for both arthroscopic surgery and TKA, would like to continue to proceed with conservative management as long as it is continuing to provide her benefit. She did have good benefit from her last gel injection series and would like to proceed with another gel injection series today. Could always consider steroid injection if this does not last her 6 months. See procedure note below. Follow up in 1 week for 2nd injection. The above assessment and plan were discussed at length. All questions were answered, and the patient expressed understanding. Gely Peters MD Primary Care Sports Medicine [facility] [address] [address] PROCEDURE NOTE: KNEE INJECTION - ULTRASOUND Laterality: [...] Gely Peters MD Sports Medicine Primary Care [address] [address] documented in this encounter Nursing Notes * Yohana Stapleton MED ASSIST - 09/01/2024 8:20 AM EST 1st right knee Euflexxa injection. Previous series, 02/01/24 documented in this encounter Plan of Treatment Upcoming Encounters Date Type Department Care Team (Latest Contact Info) Description 09/08/2024 8:45 AM EST Office Visit [facility] [address] [facility] [place] [address] Gely Peters MD 132 [facility] [place] [address] 09/15/2024 8:30 AM EST Office Visit [facility] [address] [facility] [place] [address] Gely Peters MD [address] [place] [address] 10/02/2024 10:20 AM EST Office Visit [address], [place] [address] Thalia Ruiz PA-C [address] [place] [address] [place] [address] 10/06/2024 10:15 AM EST Hospital Encounter ENDO OSS, Endoscopy Room [facility] [address] [place] [address] Abeba Cai, [address] [place] [address] 10/06/2024 10:15 AM EST - 10/06/2024 10:45 AM EST Surgery ENDO [facility], Endoscopy Room [facility] [address] [place] [address] Abeba Cai DO [address] [place] [address] COLONOSCOPY FLEXIBLE PROXIMAL DIAGNOSTIC 11/18/2024 8:00 AM EST Imaging [facility]iology [facility] [address] [place] [address] 11/25/2024 9:30 AM EST Telemedicine Urology Cullen Samuel [address] [place] [address] Jeremy Tariq MD [address] [place] [address] 7, Telemed [facility] Urology Ex [address] [place] [address] 02/19/2025 8:00 AM EDT Office Visit Cardiology, [facility] [address] [place] [address] Tanika Dumas CRNP [address] [place] [address] 04/30/2025 1:00 PM EDT Office Visit [facility] [address] [place] [address] Rosanne Munoz PA-C [address] [facility] [place] [address] Scheduled Procedures Name Priority Associated Diagnoses Date/Ti [...] knee- Primary Primary localized osteoarthrosis, lower leg Tear of lateral meniscus of right knee, current, unspecified tear type, subsequent encounter History of colon polyps Personal history of colonic polyps documented in this encounter Administered Medications Inactive Administered Medications - up to 3 most recent administrations Medication Order MAR Action Action Date Dose Rate Site Sodium Hyaluronate (Viscosup) (Euflexxa/Hyalgan) 20 MG/2ML inj 20 mg 20 mg, Intra-Articular, ONCE, On Sun09/01/24 at 0930, For 1 doseIndications:Primary osteoarthritis of right knee,Tear of lateral meniscus of right knee, current, unspecified tear type, subsequent encounter Given 09/01/2024 8:50 AM EST 20 mg Knee Right documented [...] Advance Directives occurred with: Patient Care Teams Rough Planer Tender Relationship Specialty Start Date End Date Devan Montes MD [address] [place] [address] PCP - General Family Medicine 08/21/24 documented as of this encounter
--- OUTSIDE RECORDS SUMMARY | 2024-10-18 03:38 | External Medical Summary | Summary of Care ---
Author Name Unknown Organization [facility] Address [address] [place] [address] Phone [phone] Care Team Providers Care Canoe Maker Name Role Phone Devan Montes MD Primary Care Provider +1- [phone] Reason for Visit * Reason Comments NEW PATIENT Right knee -pain Encounter Details Date Type Department Care Team (Latest Contact Info) Description 08/29/2024 9:30 AM EST [facility] [address] [place] [address] Garrett Flores MD [address] [place] [address] Primary osteoarthritis of right knee*; Right knee pain, unspecified chronicity Allergies Active Allergy Reactions Criticality Noted Date Comments Adhesive Tape 08/01/2004 Skin red and irritated Bactrim Diarrhea Medium 10/03/2012 C-diff Latex 08/01/2004 Turns skin red and itches Latex 11/11/2019 Other reaction(s): Rash Trimethoprim Low 11/11/2019 Other reaction(s): Rash documented as of this encounter (statuses as of 08/29/2024) Medications buPROPion HCl ER (SR) 150 MG [...] as of this encounter (statuses as of 08/29/2024) Active Problems Problem Noted Date Diagnosed Date [...] as of this encounter (statuses as of 08/29/2024) Resolved Problems Problem Noted Date Diagnosed Date [...] as of this encounter (statuses as of 08/29/2024) Immunizations Name Administration Dates Next Due COVID-19 [...] Passive Smoke Exposure: Past Smokeless Tobacco: Never Tobacco Cessation:Counseling Given: No Comments:no passive smoke Alcohol Use Standard Drinks/Week [...] Sign Reading Time Taken Comments Blood Pressure - - Pulse - - Temperature - - Respiratory Rate - - Oxygen Saturation - - Inhaled Oxygen Concentration - - Weight 64.4 kg (142 lb) 08/29/2024 9:23 AM EST Height 165.1 cm (5' 5") 08/29/2024 9:23 AM EST Body Mass Index 23.63 08/29/2024 9:23 AM EST documented in this encounter Progress Notes * Javier Sullivan PA-C - 08/29/2024 9:29 AM EST Orthopaedic Progress note Date: 08/29/2024 HPI: Josselyn Willis is a 79 year old female here today to be evaluated for right knee pain. She has had right knee pain for years. Patient has taken steroid/gel injections. She states that the gel injections have helped her for about 11 months. The patient wasn't sure if surgery was something she would need because she is getting older. The patient denies any unwanted weight loss. Denies erythema, warmth, swelling, fevers, chills, nausea, vomiting, chest pain, SOB, calf pain, numbness and tingling. Review of Systems 10 point ROS negative Patient Active Problem List Diagnosis Incisional hernia Generalized anxiety disorder History of basal cell carcinoma Dyslipidemia, goal LDL below 160 Gastroesophageal reflux disease without esophagitis Right renal mass Bipolar 1 disorder, mixed (HCC) Calculus of kidney Microhematuria Past Medical History: Diagnosis Date Acquired hypothyroidism [...] renal ultrasound summer 2016. Sicca syndrome (HCC) Past Surgical History: Procedure Laterality Date CHOLECYSTOTOMY OR CHOLECYSTOSTOMY, OPEN 07/28/2004 Laparoscopic cholecystectomy with cholangiogram 07/28/04 [facility], Dr. Donohue COLONOSCOPY, DIAGNOSTIC (RECTUM) 05/01/2014 hyperplastic polyp, repeat 5 yrs/COLONOSCOPY FLEXIBLE PROXIMAL DIAGNOSTIC performed by Danny Curry MD at ENDOSCOPY [facility] COLONOSCOPY, DIAGNOSTIC (RECTUM) 07/15/2019 adenomatous polyps, diverticulosis, fair prep, repeat 5 yrs /COLONOSCOPY FLEXIBLE PROXIMAL DIAGNOSTIC performed by Danny Curry MD at ENDOSCOPY [facility] CYSTO/URETERO W/LITHOTRIPSY Left 07/07/2024 CYSTOURETHROSCOPY URETEROSCOPY WITH LITHOTRIPSY AND STENT INSERTION performed by Jeremy Tariq MD at OR [facility] CYSTOSCOPY/REMOVE OBJECT, SIMPLE 2007 Cystoscopy, Remove Calculus, Simple EGD, FLEXIBLE, DIAGNOSTIC 03/30/2016 normal bx EGD, FLEXIBLE, DIAGNOSTIC 03/30/2016 ESOPHAGOGASTRODUODENOSCOPY (EGD), FLEXIBLE, TRANSORAL, DIAGNOSTIC performed by Danny Curry MD at ENDOSCOPY [facility] EGD, FLEXIBLE, DIAGNOSTIC 07/01/2021 yulia tariq grade III reflux esophagitis/erosive gastropathy/biopsies show mild irritation of stomach/ESOPHAGOGASTRODUODENOSCOPY (EGD), FLEXIBLE, TRANSORAL, DIAGNOSTIC performed by Paty Reyes DO at ENDOSCOPY [facility] EGD, FLEXIBLE, DIAGNOSTIC 08/09/2022 Mildly severe reflux esophagitis, gastric ulcer, repeat 2 mo / ESOPHAGOGASTRODUODENOSCOPY (EGD), FLEXIBLE, TRANSORAL, DIAGNOSTIC performed by Paty Reyes DO at ENDOSCOPY [facility] EGD, FLEXIBLE, DIAGNOSTIC 10/13/2022 normal / ESOPHAGOGASTRODUODENOSCOPY (EGD), FLEXIBLE, TRANSORAL, DIAGNOSTIC performed by Paty Reyes DO at ENDOSCOPY [facility] IR BIOPSY 03/24/2024 LAP;W/HYSTERECTOMY 1977 Hysterectomy Complete, [facility] MISCELLANEOUS ORDER ([facility] ONLY) 1973 Pre- Hysterectomy Robby SMALL BOWEL ENDOSCOPY W/BX 12/27/2011 polyps --stomach--inflammatory--mild inflammation end of esophagus consistant with acid reflux Family History Problem Relation Name Age of Onset Cancer Mother 68 breast Heart Disorder Mother cad, stents Cancer Father bladder, pancreatic Hypertension Father Heart Disorder Father cad Allergies Father nasal allergies Cancer Brother Durvin prostate Allergies Brother Olivia hayfever Asthma Brother Durvin Heart disease Brother Olivia CABG X 2 Cancer Brother Arie prostate Colon cancer Brother Arie Dx at 60 Heart disease Brother Arie CABG X 5 Allergies Brother Arie allergic rhinitis MEDICATIONS: Rosuvastatin Calcium 5 MG Oral Tablet (Crestor) Pantoprazole Sodium 40 MG Oral Tablet Delayed Release (Protonix) Desvenlafaxine ER 100 MG Oral Tablet Extended Release 24 Hour lamoTRIgine 100 MG Oral Tablet (LaMICtal) Betamethasone Dipropionate 0.05 % External Lotion (Diprosone) Gabapentin 300 MG Oral Capsule (Neurontin) Acetaminophen 325 MG Oral Tablet B-12 1000 MCG Oral Capsule buPROPion HCl ER (SR) 150 MG Oral Tablet Extended Release 12 Hour (WELLBUTRIN SR) ALLERGIES: Review of patient's allergies indicates: Allergen Reactions Bactrim Diarrhea C-diff Adhesive Tape Skin red and irritated Latex Turns skin red and itches Latex Other reaction(s): Rash Trimethoprim Other reaction(s): Rash Social History Tobacco Use Smoking status: Never Passive exposure: Past Smokeless tobacco: Never Tobacco comments: no passive smoke Substance Use Topics Alcohol use: No Vaping/E-Cigarette Use Vaping/E-Cigarette Use Never User Vaping/E-Cigarette Substances Vaping/E-Cigarette Devices PHYSICAL EXAM: General: Alert and oriented x 3; Healthy, no acute distress; Well nourished, well developed and cooperative. Extremities: Right Knee: 0-120 ROM, stable to varus/valgus stress, patella tracts well throughout ROM, no crepitus, tenderness to palpation about lateral joint line, skin intact, no erythema, IMAGING XR Knee Right mild osteoarthritis, mild loss of lateral compartment joint space, positive osteophyte formation ASSESSMENT AND PLAN: Josselyn Willis is a 79 year old female presents with right knee pain, mild right knee osteoarthritis -continue steroid/gel knee injections -continue home exercises -discussed that severity of osteoarthritis and mild symptoms does not warrant total knee arthroplasty -XR images reviewed by Dr. Flores and with patient -patient was explained total knee arthroplasty/bob surgery, but once again does not need it at this time -follow up prn All questions sufficiently answered. Patient understands and agrees with plan. Patient was seen and examined with Dr. Flores. Cosigned by Garrett Flores MD at 08/29/2024 12:45 PM EST Associated attestation - Garrett Flores MD - 08/29/2024 12:45 PM EST I have reviewed the advanced practitioner's documentation on the date of service referenced in note, and I agree with, and take responsibility for the plan of care. 79 yo F seen for evaluation of her right knee. She has been getting gel injections and states that the have actually been working really well. She does have a history of lateral meniscus tear recently. Full ROM on exam, stable to varus/valgus stress. X rays show very minimal joint collapse, no osteophyte or subchondral sclerosis. Recommended continuing with injections as long as they are working.No current recommendation for TKA. Call with questions or concerns. Follow up PRN. documented in this encounter Plan of Treatment Upcoming Encounters Date Type Department Care Team (Latest Contact Info) Description 09/01/2024 8:30 AM EST [facility] [address] [address] Gely Peters MD [address] [place] [address] 09/08/2024 8:45 AM EST Office Visit Orthopaedics [facility] [address] [address] Gely Peters MD [address] [place] [address] 09/15/2024 8:30 AM EST [facility] [address] [address] Gely Peters MD [address] [address] 10/02/2024 10:20 AM EST Office Visit [address] [address] Thalia Ruiz PA-C [address] [place] [address] [place] [address] 10/06/2024 10:15 AM EST Hospital Encounter ENDO O[facility], Endoscopy Room [facility] [address] [place] [address] Abeba Cai, DO [address] [place] [address] 10/06/2024 10:15 AM EST - 10/06/2024 10:45 AM EST Surgery ENDO [facility], Endoscopy Room [facility] [address] [place] [address] Abeba Cai, [address] [place] [address] COLONOSCOPY FLEXIBLE PROXIMAL DIAGNOSTIC 11/18/2024 8:00 AM EST Imaging Radiology [facility] [address] [place] [address] 11/25/2024 9:30 AM EST Telemedicine Urology Cullen Samuel [address] [place] [address] Jeremy Tariq MD [address] [place] [address], Telemed [facility] Urology Ex Rm [address] [place] [address] 02/19/2025 8:00 AM EDT Office Visit Cardiology, [facility] [address] [place] [address] Tanika Dumas CRNP [address] [place] [address] 04/30/2025 1:00 PM EDT Office Visit [facility] [address] [place] [address] Rosanne Munoz PA-C [address] [facility] [place] [address] Pending Results Name Type Priority Associated Diagnoses Date /Time XR KNEE 4 OR MORE VIEWS Medical Imaging Routine Right knee pain, unspecified chronicity 08/29/2024 9:44 AM EST Scheduled Procedures Name Priority Associated Diagnoses Date/Ti [...] knee- Primary Primary localized osteoarthrosis, lower leg Right knee pain, unspecified chronicity History of colon polyps Personal history of [...] Advance Directives occurred with: Patient Care Teams Canoe Maker Relationship Specialty Start Date End Date Devan Montes MD [address] [place] [address] PCP - General Family Medicine 08/21/24 documented as of this encounter
--- OUTSIDE RECORDS SUMMARY | 2024-10-18 03:38 | External Medical Summary | Summary of Care ---
Author Name Unknown Organization [facility] Address [address] [facility] [place] [address] Phone [phone] Care Team Providers Care Propulsion Systems Engineer Name Role Phone Devan Montes MD Primary Care Provider +1- [phone] Reason for Visit * Reason Comments Follow Up Right knee * Precert (Within 10 days (routine)) - Authorized Specialty Diagnoses / Procedures Referred By Contac t Referred To Contact Diagnoses Unilateral primary osteoarthritis, right knee Procedures MD EUFLEXXA INJ PER DOSE Gely Peters MD [address] [address] Phone: tel: fax: Gely Peters MD [address] [place] [address] Phone: tel: fax: Referral ID Status Reason Start Date Expiration Date V isits Requested Visits Authorized [id number] Authorized Precert 01/01/2024 12/31/2024 999 99 Encounter Details Date Type Department Care Team (Latest Contact Info) Description 09/01/2024 8:30 AM EST Office Visit Orthopaedics [facility] [address] [address] Gely Peters MD [address] [place] [address] Primary osteoarthritis of right knee*; Tear of [...] No 04/25/2024 Does the household have a [facility] source of income? (Household - for ages [...] follow up of right knee injury to [facility]. Josselyn Willis is here unaccompanied [...] Gely Peters MD Primary Care Sports Medicine [facility] [address] [address] PROCEDURE NOTE: KNEE INJECTION - ULTRASOUND Laterality: [...] Gely Peters MD Sports Medicine Primary Care [address] [address] documented in this encounter Nursing Notes * Yohana Stapleton MED ASSIST - 09/01/2024 8:20 AM EST 1st right knee Euflexxa injection. Previous series, 02/01/24 documented in this encounter Plan of Treatment Upcoming Encounters Date Type Department Care Team (Latest Contact Info) Description 09/08/2024 8:45 AM EST Office Visit [facility] 132 [facility] [place] [address] Gely Peters MD 132 [facility] [place] [address] 09/15/2024 8:30 AM EST Office Visit [facility] 132 [facility] [place] [address] Gely Peters MD [address] [place] [address] 10/02/2024 10:20 AM EST Office Visit [address], [place] [address] Thalia Ruiz PA-C [address] [place] [address] [place] [address] 10/06/2024 10:15 AM EST Hospital Encounter ENDO OSS, Endoscopy Room [facility] [address] [place] [address] Abeba Cai, [address] [place] [address] 10/06/2024 10:15 AM EST - 10/06/2024 10:45 AM EST Surgery ENDO [facility], Endoscopy Room [facility] [address] [place] [address] Abeba Cai DO [address] [place] [address] COLONOSCOPY FLEXIBLE PROXIMAL DIAGNOSTIC 11/18/2024 8:00 AM EST Imaging Radiology [facility] [address] [place] [address] 11/25/2024 9:30 AM EST Telemedicine Urology Cullen Samuel [address] [place] [address] Jeremy Tariq MD [address] [place] [address] 7, Telemed [facility] Urology Ex [address] [place] [address] 02/19/2025 8:00 AM EDT Office Visit Cardiology, [facility] [address] [place] [address] Tanika Dumas CRNP [address] [place] [address] 04/30/2025 1:00 PM EDT Office Visit [facility] [address] [place] [address] Rosanne Munoz PA-C [address] [facility] [place] [address] Scheduled Procedures Name Priority Associated Diagnoses Date/Ti [...] Advance Directives occurred with: Patient Care Teams Propulsion Systems Engineer Relationship Specialty Start Date End Date Devan Montes MD [address] [place] [address] PCP - General Family Medicine 08/21/24 documented as of this encounter
--- OUTSIDE RECORDS SUMMARY | 2024-10-18 03:38 | External Medical Summary | Summary of Care ---
Author Name Unknown Organization [facility] Address [address] [facility] [place] [address] Phone [phone] Care Team Providers Care Contract Technical Writer Name Role Phone Devan Montes MD Primary Care Provider [phone]- [phone] Reason for Visit * Reason Comments Follow Up Right knee * Precert (Within 10 days (routine)) - Authorized Specialty Diagnoses / Procedures Referred By Contac t Referred To Contact Diagnoses Unilateral primary osteoarthritis, right knee Procedures PA EUFLEXXA INJ PER DOSE Gely Peters MD [address] [place] [address] Phone: tel: fax: Gely Peters MD [address] [place] [address] Phone: tel: fax: Referral ID Status Reason Start Date Expiration Date V isits Requested Visits Authorized [id number] Authorized Precert 01/01/2024 12/31/2024 999 [id number] Encounter Details Date Type Department Care Team (Latest Contact Info) Description 09/01/2024 8:30 AM EST Office Visit Orthopaedics [facility] [address] [place] [address] Gely Peters MD [address] [place] [address] Primary osteoarthritis of right knee*; Tear of [...] No 04/25/2024 Does the household have a [facility] source of income? (Household - [...] follow up of right knee injury to [facility]. Josselyn Willis is here unaccompanied [...] sought out a 2nd opinion by Dr. Flores.Recommended to hold off on knee replacement due [...] Gely Peters MD Primary Care Sports Medicine [facility] [address] [address] PROCEDURE NOTE: KNEE INJECTION - ULTRASOUND Laterality: [...] Gely Peters MD Sports Medicine Primary Care [address] [place] [address] documented in this encounter Nursing Notes * Yohana Stapleton MED ASSIST - 09/01/2024 8:20 AM EST 1st right knee Euflexxa injection. Previous series, 02/01/24 documented in this encounter Plan of Treatment Upcoming Encounters Date Type Department Care Team (Latest Contact Info) Description 09/08/2024 8:45 AM EST Office Visit [facility] [address] [facility] [place] [address] Gely Peters MD [address] [facility] [place] [address] 09/15/2024 8:30 AM EST Office Visit [facility] [address] [facility] [place] [address] Gely Peters MD [address] [place] [address] 10/02/2024 10:20 AM EST Office Visit [address], [place] [address] Thalia Ruiz PA-C [address] [place] [address] [place] [address] 10/06/2024 10:15 AM EST Hospital Encounter ENDO OSS, Endoscopy Room [facility] [address] [place] [address] Abeba Cai, [address] [place] [address] 10/06/2024 10:15 AM EST - 10/06/2024 10:45 AM EST Surgery ENDO [facility], Endoscopy Room [facility] [address] [place] [address] Abeba Cai DO [address] [place] [address] COLONOSCOPY FLEXIBLE PROXIMAL DIAGNOSTIC 11/18/2024 8:00 AM EST Imaging Radiology [facility] [address] [place] [address] 11/25/2024 9:30 AM EST Telemedicine Urology Cullen Samuel [address] [place] [address] Jeremy Tariq MD [address] [place] [address] 7, Telemed [facility] Urology Ex [address] [place] [address] 02/19/2025 8:00 AM EDT Office Visit Cardiology, [facility] [address] [place] [address] Tanika Dumas CRNP [address] [place] [address] 04/30/2025 1:00 PM EDT Office Visit [facility] [address] [place] [address] Rosanne Munoz PA-C [address] [facility] [place] [address] Scheduled Procedures Name Priority Associated Diagnoses Date/Ti [...] Advance Directives occurred with: Patient Care Teams Contract Technical Writer Relationship Specialty Start Date End Date Devan Montes MD [address] [place] [address] PCP - General Family Medicine 08/21/24 documented as of this encounter
--- OUTSIDE RECORDS SUMMARY | 2024-10-18 03:39 | External Medical Summary | Summary of Care ---
Author Name Unknown Organization [facility] Address [address] [facility] [place] [address] Phone [phone] Care Team Providers Care Stock Control Supervisor Name Role Phone Rosanne Munoz PA-C Primary Care Provider [phone] -[phone] Reason for Visit * Reason Comments NEW PATIENT Right foot * Evaluate & Treat - Unlimited Visits (Within 3 days (urgent)) - Authorized Specialty Diagnoses / Procedures Referred By Elaine feldman Referred To Contact Podiatry Diagnoses Right foot pain Localized swelling of right foot Abrasion of sole of foot Kera Scherer MD [address] [place] [address] Referral ID Status Reason Start Date Expiration Date Visits Requested Visits Authorized [id number] Authorized Specialty Services Required 06/18/2024 [id number] Encounter Details Date Type Department Care Team ([facility] st Contact Info) Description 08/05/2024 10:00 AM EDT Office Visit Podiatry [address] [place] [address] Abram Rothman, BASIM [facility] [place] [address] Foreign body in right foot, initial encounter* Allergies Active Allergy Reactions Criticality Noted Date Comments Adhesive Tape 08/01/2004 Skin red and irritated Bactrim Diarrhea Medium 10/03/2012 C-diff Latex 08/01/2004 Turns skin red and itches Latex 11/11/2019 Other reaction(s): Rash Trimethoprim Low 11/11/2019 Other reaction(s): Rash documented as of this encounter (statuses as of 08/05/2024) Medications Medication Sig Dispensed Refills Start Date [...] Take 1 Capsule by mouth every evening. 04/12/2022 Active Betamethasone Dipropionate 0.05 % External [...] the evening. 180 Tablet 3 04/25/2024 Active Additional Information Patient not taking.Reported on 07/14/2024 Rosuvastatin Calcium 5 MG Oral Tablet (Crestor) One tab by mouth daily 90 Tablet 2 06/04/2024 Active Additional Information Patient taking differently: EVERY OTHER DAY, (No instructions reported), Reported on 07/02/2024 oxyCODONE-Acetamino phen 5-325 MG Oral Tablet (Percocet) Take 1 Tablet by mouth every 8 hours as needed for Pain, Severe. 10 Tablet 07/07/2024 Active Additional Information Patient not taking.Reported on 07/14/2024 Phenazopyridine HCl 200 MG Oral Tablet (Pyridium) Take 1 Tablet by mouth 3 times a day as needed for Other (bladder pain). 12 Tablet 07/07/2024 Active Additional Information Patient not taking.Reported on 07/14/2024 Tamsulosin HCl 0.4 MG Oral Capsule (Flomax) Take 1 Capsule by mouth in the morning. For duration of ureteral stent. 14 Capsule 07/07/2024 Active Additional Information Patient not taking.Reported on 07/14/2024 oxyBUTYnin Chloride 5 MG Oral Tablet (Ditropan) Take 1 Tablet by mouth 3 times a day as needed for Bladder spasms. 20 Tablet 6 07/07/2024 Active Additional Information Patient not taking.Reported on 07/14/2024 Nitrofurantoin Monohyd Macro 100 MG Oral Capsule (Macrobid) Take 1 Capsule by mouth in the morning and 1 Capsule before bedtime. With food.. 10 Capsule 07/07/2024 Active Additional Information Patient not taking.Reported on 07/14/2024 Nitrofurantoin Monohyd Macro 100 MG Oral Capsule (Macrobid) Take 1 Capsule by mouth in the morning and 1 Capsule before bedtime. With food.. 14 Capsule 07/09/2024 Active Additional Information Patient not taking.Reported on 07/14/2024 documented as of this encounter (statuses as of 08/05/2024) Active Problems Problem Noted Date Diagnosed Date [...] as of this encounter (statuses as of 08/05/2024) Resolved Problems Problem Noted Date Diagnosed Date [...] as of this encounter (statuses as of 08/05/2024) Immunizations Name Administration Dates Next Due COVID-19 [...] on file documented as of this encounter Progress Notes * Abram Rothman, BASIM - 08/05/2024 10:08 AM EDT Subjective: Patient presents with painful reddened area proximal plantar-lateral arch. Patient states that she thinks she might have stepped on something. Patient was originally seen by her primary provider on 12/19/23 Patient alert and oriented to person, place and time. Past Medical History: Diagnosis Date Acquired hypothyroidism [...] OPEN 07/28/2004 Laparoscopic cholecystectomy with cholangiogram 07/28/04 [facility], Dr. Donohue COLONOSCOPY, DIAGNOSTIC (RECTUM) 05/01/2014 hyperplastic polyp, repeat 5 yrs/COLONOSCOPY FLEXIBLE PROXIMAL DIAGNOSTIC performed by Danny Curry MD at ENDOSCOPY [facility] COLONOSCOPY, DIAGNOSTIC (RECTUM) 07/15/2019 adenomatous polyps, diverticulosis, fair prep, repeat 5 yrs /COLONOSCOPY FLEXIBLE PROXIMAL DIAGNOSTIC performed by Danny Curry MD at ENDOSCOPY [facility] CYSTO/URETERO W/LITHOTRIPSY Left 07/07/2024 CYSTOURETHROSCOPY URETEROSCOPY WITH LITHOTRIPSY AND STENT INSERTION performed by Jeremy Tariq MD at OR [facility] CYSTOSCOPY/REMOVE OBJECT, SIMPLE 2007 Cystoscopy, Remove Calculus, Simple EGD, FLEXIBLE, DIAGNOSTIC 03/30/2016 normal bx EGD, FLEXIBLE, DIAGNOSTIC 03/30/2016 ESOPHAGOGASTRODUODENOSCOPY (EGD), FLEXIBLE, TRANSORAL, DIAGNOSTIC performed by Danny Curry MD at ENDOSCOPY [facility] EGD, FLEXIBLE, DIAGNOSTIC 07/01/2021 yulia tariq grade III reflux esophagitis/erosive gastropathy/biopsies show mild irritation of stomach/ESOPHAGOGASTRODUODENOSCOPY (EGD), FLEXIBLE, TRANSORAL, DIAGNOSTIC performed by Paty Reyes DO at ENDOSCOPY [facility] EGD, FLEXIBLE, DIAGNOSTIC 08/09/2022 Mildly severe reflux esophagitis, gastric ulcer, repeat 2 mo / ESOPHAGOGASTRODUODENOSCOPY (EGD), FLEXIBLE, TRANSORAL, DIAGNOSTIC performed by Paty Reyes DO at ENDOSCOPY [facility] EGD, FLEXIBLE, DIAGNOSTIC 10/13/2022 normal / ESOPHAGOGASTRODUODENOSCOPY (EGD), FLEXIBLE, TRANSORAL, DIAGNOSTIC performed by Paty Reyes DO at ENDOSCOPY [facility] IR BIOPSY 03/24/2024 LAP;W/HYSTERECTOMY 1977 Hysterectomy Complete, [facility] MISCELLANEOUS ORDER ([facility] ONLY) 1973 Pre- Hysterectomy Robby SMALL BOWEL ENDOSCOPY W/BX 12/27/2011 polyps --stomach--inflammatory--mild inflammation end of esophagus consistant with acid reflux Family History Problem Relation Name Age of Onset Cancer Mother 68 breast Heart Disorder Mother cad, stents Cancer Father bladder, pancreatic Hypertension Father Heart Disorder Father cad Allergies Father nasal allergies Cancer Brother Durabby prostate Allergies Brother Olivia hayfever Asthma Brother Durabby Heart disease Brother Durabby CABG X 2 Cancer Brother Arie prostate Colon cancer Brother Arie Dx at 60 Heart disease Brother Arie CABG X 5 Allergies Brother Arie allergic rhinitis Social History Socioeconomic History Marital status: Spouse name: Not on file Number of children: Not on file Years of education: Not on file Highest education level: Not on file Occupational History Not on file Tobacco Use Smoking status: Never Passive exposure: Past Smokeless tobacco: Never Tobacco comments: no passive smoke Vaping Use Vaping status: Never Used Substance and Sexual Activity Alcohol use: No Drug use: No Sexual activity: Yes Partners: Male Other Topics Concern Not on file Social History 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 (Adult - for ages 18 years and over): No Does your family have trouble paying for medicine? (Household - for ages 0-17 years): Not on file Food Insecurity: No Food Insecurity (04/25/2024) Food Insecurity Do you need food for this week? (Adult - for ages 18 years and over): No Are you able to get enough food for your family? (Household - for ages 0-17 years): Not on file Does your family need food this week? (Household - for ages 0-17 years): Not on file Do you always have enough food for your family? (Household - for ages 0-17 years): Not on file Transportation Needs: No Transportation Needs (04/25/2024) Transportation Needs Do you have trouble getting a ride to medical visits or work? (Adult - for ages 18 years and over):Not on file Does your family have a hard time getting a ride to doctors visits? (Household - for ages 0-17 years): Not on file Has lack of transportation kept you from medical appointments, meetings, work, or from getting things needed for daily living? Check all that apply. (Adult - for ages 18 years and over): No Do you (or your family) have trouble finding or paying for a ride (transportation)? (Household - for ages 0-17 years): Not on file Social Connections: Socially Integrated (04/25/2024) Social Connections How often do you feel lonely or isolated from those around you? (Adult - for ages 18 years and over): Never Housing Stability: Low Risk (04/25/2024) Housing Stability Do you currently live in a prison or have no steady place to sleep at night? (Adult - for ages 18 years and over): No Do you think you are at risk of becoming homeless? (Adult - for ages 18 years and over): Not on file Does your family worry about paying for your home or becoming homeless? (Household - for ages 0-17 years): Not on file Are you homeless or worried that you might be in the future? (Adult - for ages 18 years and over): No Are you (or your family) homeless or worried that you might be in the future? (Household - for ages0-17 years): Not on file Current Outpatient Medications Medication Sig Dispense Refill [...] morning and 1 Tablet in the evening. (Patient not taking: Reported on 07/14/2024) 180 Tablet 3 Rosuvastatin Calcium 5 MG Oral Tablet (Crestor) One tab by mouth daily (Patient taking differently:every other day.) 90 Tablet 2 oxyCODONE-Acetaminophen 5-325 MG Oral Tablet (Percocet) Take 1 Tablet by mouth every 8 hours as needed for Pain, Severe. (Patient not taking: Reported on 07/14/2024) 10 Tablet 0 Phenazopyridine HCl 200 MG Oral Tablet (Pyridium) Take 1 Tablet by mouth 3 times a day as needed for Other (bladder pain). (Patient not taking: Reported on 07/14/2024) 12 Tablet 0 Tamsulosin HCl 0.4 MG Oral Capsule (Flomax) Take 1 Capsule by mouth in the morning. For duration ofureteral stent. (Patient not taking: Reported on 07/14/2024) 14 Capsule 0 oxyBUTYnin Chloride 5 MG Oral Tablet (Ditropan) Take 1 Tablet by mouth 3 times a day as needed for Bladder spasms. (Patient not taking: Reported on 07/14/2024) 20 Tablet 6 Nitrofurantoin Monohyd Macro 100 MG Oral Capsule (Macrobid) Take 1 Capsule by mouth in the morning and 1 Capsule before bedtime. With food.. (Patient not taking: Reported on 07/14/2024) 10 Capsule 0 Nitrofurantoin Monohyd Macro 100 MG Oral Capsule (Macrobid) Take 1 Capsule by mouth in the morning and 1 Capsule before bedtime. With food.. (Patient not taking: Reported on 07/14/2024) 14 Capsule 0 No current facility-administered medications for this visit. REVIEW OF SYSTEMS ROS EXAM: CONSTITUTIONAL: No change in weight, No weakness, No fatigue, and No fevers, sweats, or chills EXTREMITIES: No pain, redness or swelling on the joints SKIN/INTEGUMENTARY: No edema, No rash, and No itching NEUROLOGIC: Normal balance, No headaches, No seizures, and No weakness DERMATOLOGICAL Temperature: wnl Texture: smooth Turger: normal Scaling: mild Hair Distribution: normal Right foot Interdigital Maceration: - Left foot Interdigital Maceration: - Right foot Nails: no problems Left foot Nails: no problems Small .5mm erythematous area proximal plantar-lateral arch VASCULAR EXAM Right foot Pulses: Dorsalis Pedis-2/4 palpable Left foot Pulses: Dorsalis Pedis- 1/4 palpable Right foot Subpapillary venous plexus filling time: within limits Left foot Subpapillary venous plexus filling time: within limits Right foot Posterior Tibial Pulse-1/4 palpable Left foot Posterior Tibial Pulse- 1/4 palpable Right foot Edema: none Left foot Edema: none Right foot Cyanosis: - Left foot Cyanosis: - Right foot Telangiectasias: - Left foot Telangiectasias: - Right foot Rubor: - Left foot Rubor: - Right foot Varicosities: - Left foot Varicosities: - NEUROLOGICAL Right foot Posterior Tibial Nerve: sensate Left foot Posterior Tibial Nerve: sensate Right foot Deep Peroneal Nerve: sensate Left foot Deep Peroneal Nerve: sensate Right foot Sural Nerve: sensate Left foot Sural Nerve: sensate Right foot Superficial Peroneal Nerve:sensate Left foot Superficial Peroneal Nerve: sensate Beaver Emil is sensate Right Vibratory: intact Left Vibratory: intact ORTHOPEDIC Muscles: Right inverters 5 Left inverters 5 Right everters: 5 Left everters: 5 Right Dorsiflexors: 5 Left Dorsiflexors: 5 Right Plantarflexors: 5 Left Plantarflexors: 5 Joint ROM: Right foot Ankle Joint: WNL Left foot Ankle Joint: WNL Right foot Subtalar joint: WNL Left foot Subtalar joint: WNL Right foot Midtarsal joint: WNL Left foot Midtarsal joint: WNL Right foot Metatarsal Phalangeal joint: WNL Left foot Metatarsal Phalangeal joint: WNL Right Equinus: - Left Equinus: - Right Masses: - Left Masses: - Right Effusions: - Left Effusions: - Left Deformities: N/A Right Deformities: N/A Gait Analysis: wnl Radiological: my interpretation of x-rays 06/30/24: 5.6mm wire embedded in right foot proximal to 5thmet base Assessment: The encounter diagnosis was Foreign body in right foot, initial encounter. Plan: Discussed etiology and treatment options Attempted to remove foreign body using a #12 blade. Unable to remove 1/ felt aperature pad/bandaid placed on foot in attempt to mechanically extrude object Patient sent for x-rays right foot to determine if it is still in the same position documented in this encounter Nursing Notes * Danette Brito CMA - 08/05/2024 9:54 AM EDT New pt./ right foot issue documented in this encounter Plan of Treatment Upcoming Encounters Date Type Department Care Team (Latest Contact Info) Description 08/12/2024 8:00 AM EDT Office Visit Cardiology, [facility] [address] [place] [address] Tanika Dumas CRNP [address] [place] [address] 10/02/2024 10:20 AM EST Office Visit Dermatology[address], [place] [address] Thalia Ruiz PA-C [address] [place] [address] [place] [address] 10/06/2024 10:15 AM EST Hospital Encounter ENDO [facility], Endoscopy Room [facility] [address] [place] [address] Abeba Cai, [address] [place] [address] 10/06/2024 10:15 AM EST - 10/06/2024 10:45 AM EST Surgery ENDO [facility], Endoscopy Room [facility] [address] [place] [id number] Abeba Cai, [address] [place] [address] COLONOSCOPY FLEXIBLE PROXIMAL DIAGNOSTIC 11/18/2024 8:00 AM EST Imaging Radiology [facility] [address] [facility] [place] [address] 11/25/2024 9:45 AM EST Office Visit Urology, [facility] [address] [facility] [place] [address] Jeremy Tariq MD [address] [place] [address] 04/30/2025 1:00 PM EDT Office Visit [facility] [place] [address] [place] [id number] Rosanne Munoz PA-C [address] [place] [address] Pending Results Name Type Priority Associated Diagnoses Date /Time XR FOOT 3 OR MORE VIEWS Medical Imaging Routine Foreign body in right foot, initial encounter 08/05/2024 10:22 AM EDT Scheduled Procedures Name Priority Associated Diagnoses Date/Ti [...] as of this encounter Visit Diagnoses Diagnosis Foreign body in right foot, initial encounter- Primary History of colon polyps Personal history of [...] Advance Directives occurred with: Patient Care Teams Stock Control Supervisor Relationship Specialty Start Date End Date Rosanne Munoz PA-C [address] [place] [address] PCP - General Physician Pantograph Machine Operator 05/04/24 documented as of this encounter
--- OUTSIDE RECORDS SUMMARY | 2024-10-18 03:39 | External Medical Summary | Summary of Care ---
Author Name Unknown Organization [facility] Address [address] [facility] [place] [address] Phone [phone] Care Team Providers Care Linecasting Machine Keyboard Operator Name Role Phone Rosanne Munoz PA-C Primary Care Provider [phone] Reason for Visit * Reason Comments Follow Up Encounter Details Date Type Department Care Team (Late st Contact Info) Description 08/12/2024 8:00 AM EDT Office Visit Cardiology, [facility] [address] [place] [address] Tanika Dumas CRNP [address] [place] [address] Nonrheumatic aortic valve stenosis*; Dyslipidemia, goal LDL below 160 Allergies Active Allergy Reactions Criticality Noted Date Comments Adhesive Tape 08/01/2004 Skin red and irritated Bactrim Diarrhea Medium 10/03/2012 C-diff Latex 08/01/2004 Turns skin red and itches Latex 11/11/2019 Other reaction(s): Rash Trimethoprim Low 11/11/2019 Other reaction(s): Rash documented as of this encounter (statuses as of 08/12/2024) Medications Medication Sig Dispensed Refills Start Date [...] 07/02/2024 Ciprofloxacin HCl 500 MG Oral Tablet (Cipro)Indicatio ns:Acute cystitis with hematuria Take 1 Tablet by mouth in the morning and 1 Tablet before bedtime. Do all this for 3 days. 6 Tablet 4 08/12/20 Discontinued Nitrofurantoin Monohyd Macro 100 MG Oral Capsule (Macrobid)Indica tions:Acute cystitis with hematuria Take 1 Capsule by mouth in the morning and 1 Capsule before bedtime. Do all this for 7 days. With food until gone. 14 Capsule 4 08/12/20 24 Discontinued oxyCODONE-Acetam inophen 5-325 MG Oral Tablet (Percocet) Take 1 Tablet by mouth every 8 hours as needed for Pain, Severe. 10 Tablet 4 08/12/20 24 Discontinued(Pr dication List Clean Up) Phenazopyridine HCl 200 MG Oral Tablet (Pyridium) Take 1 Tablet by mouth 3 times a day as needed for Other (bladder pain). 12 Tablet 4 08/12/20 24 Discontinued Tamsulosin HCl 0.4 MG Oral Capsule (Flomax) Take 1 Capsule by mouth in the morning. For duration of ureteral stent. 14 Capsule 4 08/12/20 24 Discontinued oxyBUTYnin Chloride 5 MG Oral Tablet (Ditropan) Take 1 Tablet by mouth 3 times a day as needed for Bladder spasms. 20 Tablet 6 4 08/12/20 24 Discontinued Nitrofurantoin Monohyd Macro 100 MG Oral Capsule (Macrobid) Take 1 Capsule by mouth in the morning and 1 Capsule before bedtime. With food.. 10 Capsule 4 08/12/20 24 Discontinued Nitrofurantoin Monohyd Macro 100 MG Oral Capsule (Macrobid) Take 1 Capsule by mouth in the morning and 1 Capsule before bedtime. With food.. 14 Capsule 4 08/12/20 24 Discontinued documented as of this encounter (statuses as of 08/12/2024) Active Problems Problem Noted Date Diagnosed Date [...] as of this encounter (statuses as of 08/12/2024) Resolved Problems Problem Noted Date Diagnosed Date [...] as of this encounter (statuses as of 08/12/2024) Immunizations Name Administration Dates Next Due COVID-19 [...] No 04/25/2024 Does the household have a [facility] source of income? (Household - for [...] Sign Reading Time Taken Comments Blood Pressure 122/70 08/12/2024 7:55 AM EDT Pulse 88 08/12/2024 7:55 AM EDT Temperature - - Respiratory Rate 16 08/12/2024 7:55 AM EDT Oxygen Saturation - - Inhaled Oxygen Concentration - - Weight - - Height - - Body Mass Index - - documented in this encounter Progress Notes * Tanika Dumas CRNP - 08/12/2024 8:00 AM EDT 08/12/2024 Cardiology Follow Up Primary Sand Miller: Dr. Oliva Cardiac Problems: Moderate Aortic stenosis with insufficiency Dyslipidemia Chronic dyspnea on exertion HPI: Josselyn Willis is a 79 year old female presents for cardiology feeling Last seen in our office by the undersigned on 02/08/24 stable from a cardiac perspective. Patient presents today feeling well overall. Continues to endorse palpitations, but not bothersome enough to stop her from normal daily routine. Denies any chest pain, pressure, shortness of breath, near-syncope or syncope or edema Reviewed most recent echocardiogram which continues to show moderate calcification of the aortic valve with moderate to borderline Severe . AoV2 Max 407.2cm/sec Ao mean PG 33.7mmHg DAXA (I,D) 0.84cm2 Patient walks her dogs upwards of 2 miles per day without issue. BP well controlled. Compliant on all medication therapies with no untoward effects. REVIEW OF SYSTEMS: See HPI for pertinent positives. All others negative other than those noted in the HPI. CONSTITUTIONAL: No change in weight, No weakness, No fatigue and No fevers, No sweats or chills. PULMONARY: No cough, sputum, or hemoptysis, No wheezing, No shortness or breath and No recent change in breathing. CARDIOVASCULAR: No chest pain, No dyspnea on exertion, No edema, No palpitations and No syncope. GASTROINTESTINAL: No abdominal pain, No change in bowel habits, No significant heartburn, No nausea, No vomiting, No diarrhea, No constipation, No blood in stools or black tarry stools. No dysphagia. HEMATOLOGIC: No abnormal bleeding and No bruising. NEUROLOGICAL: Normal balance, No headaches and No weakness. Review of patient's allergies indicates: Allergen Reactions Bactrim Diarrhea C-diff Adhesive Tape Skin red and irritated Latex Turns skin red and itches Latex Other reaction(s): Rash Trimethoprim Other reaction(s): Rash Current Outpatient Medications Medication Sig Dispense Refill [...] No current facility-administered medications for this visit. Past Medical History: Diagnosis Date Acquired hypothyroidism [...] renal ultrasound summer 2016. Sicca syndrome (HCC) Family History Problem Relation Name Age of Onset Cancer Mother 68 breast Heart Disorder Mother cad, stents Cancer Father bladder, pancreatic Hypertension Father Heart Disorder Father cad Allergies Father nasal allergies Cancer Brother Durvin prostate Allergies Brother Olivia hayfever Asthma Brother Durvin Heart disease Brother Durvin CABG X 2 Cancer Brother Arie prostate Colon cancer Brother Arie Dx at 60 Heart disease Brother Arie CABG X 5 Allergies Brother Arie allergic rhinitis Social History Socioeconomic History Marital status: Tobacco Use Smoking status: Never Passive exposure: Past Smokeless tobacco: Never Tobacco comments: no passive smoke Vaping Use Vaping status: Never Used Substance and Sexual Activity Alcohol use: No Drug use: No Sexual activity: Yes Partners: Male Social History Narrative Retired [employer] Social 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 Health Financial Resource Strain: Low Risk (04/25/2024) Financial Resource Strain Do you have any trouble paying for your medications, or do you think you might in the future? (Adult - for ages 18 years and over): No Food Insecurity: No Food Insecurity (04/25/2024) Food Insecurity Do you need food for this week? (Adult - for ages 18 years and over): No Transportation Needs: No Transportation Needs (04/25/2024) Transportation Needs Has lack of transportation kept you from medical appointments, meetings, work, or from getting things needed for daily living? Check all that apply. (Adult - for ages 18 years and over): No Social Connections: Socially Integrated (04/25/2024) Social Connections How often do you feel lonely or isolated from those around you? (Adult - for ages 18 years and over): Never Housing Stability: Low Risk (04/25/2024) Housing Stability Do you currently live in a jail or have no steady place to sleep at night? (Adult - for ages 18 years and over): No Are you homeless or worried that you might be in the future? (Adult - for ages 18 years and over): No OBJECTIVE/PHYSICAL EXAMINATION: BP 122/70 | Pulse 88 | Resp 16 General: No acute distress. A+Ox3. HEENT: Normocephalic. Atraumatic. PERRL. EOMI. Conjunctiva and sclera clear. NECK: No carotid bruits. No JVD. Carotid upstrokes are brisk. Heart: RRR. S1 and S2 noted. +2/6 systolic murmur. No rubs or gallops. PMI non displaced. Lungs: Clear to auscultation. No wheezes.No rhonchi. No rales. Abdomen: Normal bowel sounds. Soft. Nontender. No masses or organomegaly. No abdominal bruits. Extremities: No edema. No clubbing or cyanosis. Pulses: radial=2/4, posterior tibial=2/4, dorsalis pedis = 2/4. NEURO: No focal deficits. PSYCH: Appropriate affect and insight. DATA Labs & Imaging Reviewed Below: Echocardiogram 07/28/2024 Interpretation Summary The left ventricular cavity size is normal. The LV wall thickness is severely increased (concentric). The left ventricular wall motion is normal. The qualitative LV ejection fraction is 60-64% (normal). The left atrium is mildly enlarged (35-41 ml/m^2). The aortic valve is moderately calcified. The mitral valve leaflets thickness is mildly increased. Borderline severe aortic valve stenosis is present. Peak aortic valve velocity of 4.0 m/sec Moderate mitral regurgitation is present. In comparison to prior study of July 23, 2023, aortic valve gradients have increased, left ventricular hypertrophy has increased, moderate mitral insufficiency is now present Echocardiogram 07/2023 Interpretation Summary The examination is adequate to evaluate the referral indication. The left ventricular cavity size is normal. The LV wall thickness is moderately increased (concentric). There is asymmetric left ventricular hypertrophy. The asymmetric hypertrophy involves the septum. The left ventricular wall motion is normal. The qualitative LV ejection fraction is 65-69% (normal). The left ventricular diastolic function is mildly abnormal (grade I). The aortic valve is moderately calcified. Moderate aortic valve stenosis is present. Mild mitral regurgitation is present. Mild tricuspid regurgitation is present. In comparison to prior study of July 07, 2022, aortic valve gradients have increased slightly,left ventricular wall thickness has increased Exercise stress echo report June 29, 2021: The examination is adequate to evaluate the referral indication. The stress echo is negative for inducible ischemia. 2D echocardiogram July 07, 2022: Normal LV chamber size and wall thickness. Normal LV systolic function without regional wall motion abnormalities. Calculated LV ejection Fraction = 64% (bi-plane method of discs). Grade 1 diastolic dysfunction. The aortic valve is inadequately visualized, unable to accurately determine the number of leaflets.The aortic valve is moderately calcified. The aortic valve opening is moderately reduced. Moderate aortic valve stenosis is present. Mild aortic valve regurgitation is present. Mild mitral regurgitation. Mild tricuspid regurgitation. Compared to study dated April 21, 2021, aortic valve systolic gradient unchanged. 2D echocardiogram April 21, 2021: The LV wall thickness is mildly increased (concentric). The left ventricular wall motion is normal. The qualitative LV ejection fraction is 60-64% (normal). The left ventricular diastolic function is mildly abnormal (grade I). The aortic valve has three leaflets. The aortic valve is mildly calcified. Mild to moderate aortic valve stenosis is present. Mild aortic valve regurgitation is present. Mild mitral regurgitation is present. Mild tricuspid regurgitation is present. 3 day ZIO monitor report summary 03/31/2021: The LV wall thickness is mildly increased (concentric). The left ventricular wall motion is normal. The qualitative LV ejection fraction is 60-64% (normal). The left ventricular diastolic function is mildly abnormal (grade I). The aortic valve has three leaflets. The aortic valve is mildly calcified. Mild to moderate aortic valve stenosis is present. Mild aortic valve regurgitation is present. Mild mitral regurgitation is present. Mild tricuspid regurgitation is present. Exercise stress echo report summary August 21, 2018: The stress echo is negative for inducible ischemia. Exercise capacity is above average . Resting Study: The qualitative LV ejection fraction is 60-64% (normal). Moderate aortic valve sclerosis is present. Mild aortic valve regurgitation is present. Mild mitral regurgitation is present. The left ventricular diastolic function is mildly abnormal (grade I). Compared to last available study changes are noted as follows: Aortic valve systolic gradients haveincreased. Exercise stress echo report summary January 12, 2016: STRESS STUDY: The stress echo is negative for inducible ischemia. Incomplete right bundle branch block was noted at rest. The stress EKG response showed no evidence of ischemia. Exercise capacity is above average . RESTING STUDY: The LV wall thickness is mildly increased (concentric). The qualitative LV ejection fraction is 60-64% (normal). The left ventricular diastolic function is mildly abnormal (grade I). Mild aortic valve sclerosis is present. Mild aortic valve regurgitation is present. Mild mitral regurgitation is present. Mild tricuspid regurgitation is present. ASSESSMENT/PLAN: 79 year old year old female 1. Nonrheumatic aortic valve stenosis -Recent echo demonstrates moderate to borderline asymptomatic . -Plan is to follow up in 6 months and repeat echo at 1 year cris unless she would become symptomatic. -Discussed possibility of pursuing valve clinic referral. 2. Dyslipidemia, goal LDL below 160 -yearly lipid panel -Continue Crestor as per current regimen DISPOSITION: Follow up 6 months or if symptoms worsen/fail to improve. All questions were answered to the patients satisfaction. Patient advised to report to ED with any and all emergencies. The patient agrees to the above plan and will call with additional questions or concerns. [facility], [address] [address] I spent a total of 30 minutes on the date of service in preparation, delivery, and documentation ofthe care provided to Josselyn Willis excluding any time spent in the performance of separately billed services. This chart was completed in part utilizing [employer] Speech Voice Recognition Software. Grammatical errors, random word insertions, pronoun errors, and incomplete sentences are an occasional consequence of this system due to software limitations, ambient noise, and hardware issues. Any formal questions or concerns about the content, text, or information contained within the body of this dictation should be directly addressed to the provider for clarification. documented in this encounter Nursing Notes * Aundrea Rachel LPN - 08/12/2024 7:55 AM EDT Examination Room: 7 Name: Josselyn Willis Date of : 1945 Reason for Visit: Follow up Problems/Concerns: Still having palpitations Interim Hosp(s): ER Sept multiple times for kidney stones Chest Pain/SOB: denies MyChart Discussed: ALREADY ACTIVE Patient was instructed to not get up on the exam table until directed and assisted by their provider; patient is to remain seated in the chair/ wheelchair/ exam table for fall prevention and safety reasons. Patient is aware staff will assist stepping down off exam table with personnel. documented in this encounter Plan of Treatment Upcoming Encounters Date Type Department Care Team (Latest Contact Info) Description 08/19/2024 10:15 AM EDT Office Visit Podiatry [address] [place] [phone] Abram Rothman, BASIM [address] [place] [address] 10/02/2024 10:20 AM EST Office Visit Dermatology[address] [place] [address] Thalia Ruiz PA-C [address] [place] [address] [place] [address] 10/06/2024 10:15 AM EST Hospital Encounter ENDO [facility], Endoscopy Room [facility] [address] [facility] [place] [id number] Abeba Cai, DO [address] [place] [address] 10/06/2024 10:15 AM EST - 10/06/2024 10:45 AM EST Surgery ENDO [facility], Endoscopy Room [facility] [address] [place] [id number] Abeba Cai, DO [address] [place] [address] COLONOSCOPY FLEXIBLE PROXIMAL DIAGNOSTIC 11/18/2024 8:00 AM EST Imaging Radiology [facility] [address] [facility] [place] [address] 11/25/2024 9:45 AM EST Office Visit Urology, [facility] [address] [facility] [place] [address] Jeremy Tariq MD [address] [place] [address] 02/19/2025 8:00 AM EDT Office Visit Cardiology, [facility] [address] [facility] [place] [address] Tanika Dumas CRNP [address] [facility] [place] [address] 04/30/2025 1:00 PM EDT Office Visit [facility] [address] [place] [phone] Rosanne Munoz PA-C [address] [place] [address] Scheduled Procedures Name Priority Associated Diagnoses Date/Ti [...] as of this encounter Visit Diagnoses Diagnosis Nonrheumatic aortic valve stenosis- Primary Aortic valve disorders Dyslipidemia, goal LDL below 160 Other and unspecified hyperlipidemia History of colon polyps Personal history of [...] Advance Directives occurred with: Patient Care Teams Linecasting Machine Keyboard Operator Relationship Specialty Start Date End Date Rosanne Munoz PA-C [address] [place] [address] PCP - General Physician Cso 05/04/24 documented as of this encounter"
--- OUTSIDE RECORDS SUMMARY | 2024-10-18 03:39 | External Medical Summary | Summary of Care ---
Author Name Unknown Organization [facility] Address [address] [facility] [place] [address] Phone [phone] Care Team Providers Care Stud Setter Name Role Phone Devan Montes MD Primary Care Provider +1- [phone] Reason for Visit * Reason Comments Tick Bite Encounter Details Date Type Department Care Team (Latest Contact Info) Description 08/23/2024 8:30 AM EDT [facility] Visit [address] [address] Dane Garcia PA-C [address] [place] [phone] Tick bite of left thigh, initial encounter* Allergies Active Allergy Reactions Criticality Noted Date Comments Adhesive Tape 08/01/2004 Skin red and irritated Bactrim Diarrhea Medium 10/03/2012 C-diff Latex 08/01/2004 Turns skin red and itches Latex 11/11/2019 Other reaction(s): Rash Trimethoprim Low 11/11/2019 Other reaction(s): Rash documented as of this encounter (statuses as of 08/23/2024) Medications Medication Sig Dispensed Refills Start Date [...] DAY, (No instructions reported), Reported on 07/02/2024 Doxycycline Hyclate 100 MG Oral CapsuleIndications :Tick bite of left thigh, initial encounter Take 2 Capsules by mouth once for 1 dose. For a tick bite 2 Capsule 08/23/2024 08/23/2024 Active documented as of this encounter (statuses as of 08/23/2024) Active Problems Problem Noted Date Diagnosed Date [...] as of this encounter (statuses as of 08/23/2024) Resolved Problems Problem Noted Date Diagnosed Date [...] as of this encounter (statuses as of 08/23/2024) Immunizations Name Administration Dates Next Due COVID-19 [...] Sign Reading Time Taken Comments Blood Pressure 132/62 08/23/2024 8:24 AM EDT Pulse 90 08/23/2024 8:24 AM EDT Temperature 36.7 C (98 F) 08/23/2024 8:24 AM EDT Respiratory Rate 18 08/23/2024 8:24 AM EDT Oxygen Saturation 98% 08/23/2024 8:24 AM EDT Inhaled Oxygen Concentration - - Weight - - Height - - Body Mass Index - - documented in this encounter Progress Notes * Dane Garcia PA-C - 08/23/2024 8:36 AM EDT [facility] Basic Exam Josselyn Willis is a 79 year old year old female who presents for evaluation of tick bite on back of left thigh. Noticed tick on , was present since Sunday. had removed completely on but patient wanted to get it checked out as it was still feeling and looking irritated. Review of Systems Constitutional: Negative. HENT: Negative. Respiratory: Negative. Cardiovascular: Negative. Skin: Positive for color change and rash. Neurological: Negative. PAST MEDICAL HISTORY: Past Medical History: Diagnosis Date Acquired hypothyroidism [...] OPEN 07/28/2004 Laparoscopic cholecystectomy with cholangiogram 07/28/04 [facility], Dr. Donohue COLONOSCOPY, DIAGNOSTIC (RECTUM) 05/01/2014 hyperplastic polyp, repeat 5 yrs/COLONOSCOPY FLEXIBLE PROXIMAL DIAGNOSTIC performed by Danny Curry MD at ENDOSCOPY [facility] COLONOSCOPY, DIAGNOSTIC (RECTUM) 07/15/2019 adenomatous polyps, diverticulosis, fair prep, repeat 5 yrs /COLONOSCOPY FLEXIBLE PROXIMAL DIAGNOSTIC performed by Danny Curry MD at ENDOSCOPY [facility] CYSTO/URETERO W/LITHOTRIPSY Left 07/07/2024 CYSTOURETHROSCOPY URETEROSCOPY WITH LITHOTRIPSY AND STENT INSERTION performed by Jeremy Tariq MD at OR [facility] CYSTOSCOPY/REMOVE OBJECT, SIMPLE 2007 Cystoscopy, Remove Calculus, Simple EGD, FLEXIBLE, DIAGNOSTIC 03/30/2016 normal bx EGD, FLEXIBLE, DIAGNOSTIC 03/30/2016 ESOPHAGOGASTRODUODENOSCOPY (EGD), FLEXIBLE, TRANSORAL, DIAGNOSTIC performed by Danny Curry MD at ENDOSCOPY [facility] EGD, FLEXIBLE, DIAGNOSTIC 07/01/2021 yulia tariq grade III reflux esophagitis/erosive gastropathy/biopsies show mild irritation of stomach/ESOPHAGOGASTRODUODENOSCOPY (EGD), FLEXIBLE, TRANSORAL, DIAGNOSTIC performed by Paty Reyes DO at ENDOSCOPY [facility] EGD, FLEXIBLE, DIAGNOSTIC 08/09/2022 Mildly severe reflux esophagitis, gastric ulcer, repeat 2 mo / ESOPHAGOGASTRODUODENOSCOPY (EGD), FLEXIBLE, TRANSORAL, DIAGNOSTIC performed by Paty Reyes DO at ENDOSCOPY [facility] EGD, FLEXIBLE, DIAGNOSTIC 10/13/2022 normal / ESOPHAGOGASTRODUODENOSCOPY (EGD), FLEXIBLE, TRANSORAL, DIAGNOSTIC performed by Paty Reyes DO at ENDOSCOPY [facility] IR BIOPSY 03/24/2024 LAP;W/HYSTERECTOMY 1977 Hysterectomy Complete, [facility] MISCELLANEOUS ORDER ([facility] ONLY) 1973 Pre- Hysterectomy [facility] ENDOSCOPY W/BX 12/27/2011 polyps --stomach--inflammatory--mild inflammation end of esophagus consistant with acid reflux Social History Tobacco Use Smoking status: Never Passive exposure: Past Smokeless tobacco: Never Tobacco comments: no passive smoke Substance Use Topics Alcohol use: No Vaping/E-Cigarette Use Vaping/E-Cigarette Use Never User Vaping/E-Cigarette Substances Vaping/E-Cigarette Devices Patient Active Problem List Diagnosis Incisional hernia Generalized anxiety disorder History of basal cell carcinoma Dyslipidemia, goal LDL below 160 Gastroesophageal reflux disease without esophagitis Right renal mass Bipolar 1 disorder, mixed (HCC) Calculus of kidney Microhematuria Review of patient's allergies indicates: Allergen Reactions [...] taking differently:every other day.) 90 Tablet 2 Doxycycline Hyclate 100 MG Oral Capsule Take 2 Capsules by mouth once for 1 dose. For a tick bite 2Capsule 0 No current facility-administered medications for this visit. Nursing Notes and Vital Signs reviewed. BP 132/62 | Pulse 90 | Temp 36.7 C (98 F) (Tympanic) | Resp 18 | SpO2 98% Physical Exam Vitals and nursing note reviewed. Constitutional: Appearance: Normal appearance. HENT: Head: Normocephalic. Nose: Nose normal. Mouth/Throat: Mouth: Mucous membranes are moist. Eyes: Extraocular Movements: Extraocular movements intact. Conjunctiva/sclera: Conjunctivae normal. Pulmonary: Effort: Pulmonary effort is normal. Musculoskeletal: General: Normal range of motion. Cervical back: Normal range of motion and neck supple. Skin: General: Skin is warm. Findings: Erythema (tick bite on posterior left thigh with surrounding erythema, no erythema migrans noted at the time. No tick parts remaining at site of bite) present. Neurological: General: No focal deficit present. Mental Status: She is alert and oriented to person, place, and time. Psychiatric: Mood and Affect: Mood normal. ASSESSMENT: Tick bite of left thigh, initial encounter (Primary) - Doxycycline Hyclate 100 MG Oral Capsule; Take 2 Capsules by mouth once for 1 dose. For a tick bite - Treated with abx ointment and bandaid - Watch for signs of developing "bulls eye rash" or neurologic and cardiac changes Educated patient to go to ER with any concerning changes, including neurologic changes, chest pain or palpitations. Return or make appointment with PCP if no improvement within 3-5 days. Dane Garcia PA-C [address] [address] documented in this encounter Nursing Notes * Tonja Keith CMA - 08/23/2024 8:23 AM EDT Nursing Notes: CC: Chief Complaint Patient presents with Tick Bite Brief Hx: Patient complains of a tick bite on left thigh, states removed the tick Duration/Onset: sunday OTC meds: no Accompanied by: self documented in this encounter Plan of Treatment Upcoming Encounters Date Type Department Care Team (Latest Contact Info) Description 08/29/2024 9:30 AM EST Office Visit Orthopaedics, [facility] [address] [place] [address] Garrett Flores MD [address] [place] [facility] [address] 10/02/2024 10:20 AM EST [place] [address] [facility] [id number] Thalia Ruiz PA-C [address] [place] [address] [place] [address] 10/06/2024 10:15 AM EST Hospital Encounter [facility] [address] [facility] [place] [address] Abeba Cai, DO [address] [place] [address] 10/06/2024 10:15 AM EST - 10/06/2024 10:45 AM EST Surgery [facility], End[facility] [address] [place] [address] Abeba Cai, DO [address] [place] [address] COLONOSCOPY FLEXIBLE PROXIMAL DIAGNOSTIC 11/18/2024 8:00 AM EST Imaging Radiology [facility] [address] [place] [address] 11/25/2024 9:30 AM EST Telemedicine Urology [facility] Samuel [address] [place] [address] Jeremy Tariq MD [address] [place] [address] 7, Telemed [facility] Urology Ex [address] [place] [address] 02/19/2025 8:00 AM EDT Office Visit Cardiology, [facility] [address] [place] [address] Tanika Dumas CRNP [address] [place] [address] 04/30/2025 1:00 PM EDT Office Visit [facility] [address] [facility] [address] Rosanne Munoz PA-C [address] [facility] [address] Scheduled Procedures Name Priority Associated Diagnoses Date/Ti [...] as of this encounter Visit Diagnoses Diagnosis Tick bite of left thigh, initial encounter- Primary History of colon polyps [...] Advance Directives occurred with: Patient Care Teams Stud Setter Relationship Specialty Start Date End Date Devan Montes MD [address] [place] [address] PCP - General Family Medicine 08/21/24 documented as of this encounter
--- OUTSIDE RECORDS SUMMARY | 2024-10-18 03:39 | External Medical Summary | Summary of Care ---
Author Name Unknown Organization [facility] Address [address] [facility] [address] Phone [phone] Care Team Providers Care Printing Machine Operator Tape Rules Name Role Phone Rosanne Munoz PA-C Primary Care Provider +1 -[phone] Reason for Visit * Reason Comments Follow Up Right foot Encounter Details Date Type Department Care Team ([facility] st Contact Info) Description 08/19/2024 10:15 AM EDT Office Visit Podiatry [address] [place] [phone] Abram Rothman, [facility] [place] [address] Foreign body in right foot, initial encounter* Allergies Active Allergy Reactions Criticality Noted Date Comments Adhesive Tape 08/01/2004 Skin red and irritated Bactrim Diarrhea Medium 10/03/2012 C-diff Latex 08/01/2004 Turns skin red and itches Latex 11/11/2019 Other reaction(s): Rash Trimethoprim Low 11/11/2019 Other reaction(s): Rash documented as of this encounter (statuses as of 08/19/2024) Medications Medication Sig Dispensed Refills Start Date [...] as of this encounter (statuses as of 08/19/2024) Active Problems Problem Noted Date Diagnosed Date [...] as of this encounter (statuses as of 08/19/2024) Resolved Problems Problem Noted Date Diagnosed Date [...] as of this encounter (statuses as of 08/19/2024) Immunizations Name Administration Dates Next Due COVID-19 [...] of this encounter Progress Notes * Abram Rothman DPM - 08/19/2024 10:26 AM EDT Subjective: Patient presents in office today for follow up of foreign body right foot. Patient kept the bandages on her foot. Patient relates no more pain in the area HISTORY Past Medical History: Diagnosis Date Acquired hypothyroidism [...] OPEN 07/28/2004 Laparoscopic cholecystectomy with cholangiogram 07/28/04 [facility], Dr. Donohue COLONOSCOPY, DIAGNOSTIC (RECTUM) 05/01/2014 hyperplastic polyp, repeat 5 yrs/COLONOSCOPY FLEXIBLE PROXIMAL DIAGNOSTIC performed by Danny Curry MD at ENDOSCOPY [facility] COLONOSCOPY, DIAGNOSTIC (RECTUM) 07/15/2019 adenomatous polyps, diverticulosis, fair prep, repeat 5 yrs /COLONOSCOPY FLEXIBLE PROXIMAL DIAGNOSTIC performed by Danny Curry MD at ENDOSCOPY [facility] CYSTO/URETERO W/LITHOTRIPSY Left 07/07/2024 CYSTOURETHROSCOPY URETEROSCOPY WITH LITHOTRIPSY AND STENT INSERTION performed by Jeremy Tariq MD at OR [facility] CYSTOSCOPY/REMOVE OBJECT, SIMPLE 2007 Cystoscopy, Remove Calculus, Simple EGD, FLEXIBLE, DIAGNOSTIC 03/30/2016 normal bx EGD, FLEXIBLE, DIAGNOSTIC 03/30/2016 ESOPHAGOGASTRODUODENOSCOPY (EGD), FLEXIBLE, TRANSORAL, DIAGNOSTIC performed by Danny Curry MD at ENDOSCOPY [facility] EGD, FLEXIBLE, DIAGNOSTIC 07/01/2021 yulia tariq grade III reflux esophagitis/erosive gastropathy/biopsies show mild irritation of stomach/ESOPHAGOGASTRODUODENOSCOPY (EGD), FLEXIBLE, TRANSORAL, DIAGNOSTIC performed by Paty Reyes DO at ENDOSCOPY [facility] EGD, FLEXIBLE, DIAGNOSTIC 08/09/2022 Mildly severe reflux esophagitis, gastric ulcer, repeat 2 mo / ESOPHAGOGASTRODUODENOSCOPY (EGD), FLEXIBLE, TRANSORAL, DIAGNOSTIC performed by Paty Reyes DO at ENDOSCOPY [facility] EGD, FLEXIBLE, DIAGNOSTIC 10/13/2022 normal / ESOPHAGOGASTRODUODENOSCOPY (EGD), FLEXIBLE, TRANSORAL, DIAGNOSTIC performed by Paty Reyes DO at ENDOSCOPY [facility] IR BIOPSY 03/24/2024 LAP;W/HYSTERECTOMY 1977 Hysterectomy Complete, [facility] MISCELLANEOUS ORDER ([facility] ONLY) 1973 Pre- [...] Not on file Social History 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 ROS EXAM: CONSTITUTIONAL: No change in weight, No weakness, No fatigue, and No fevers, sweats, or chills EXTREMITIES: No pain, redness or swelling on the joints SKIN/INTEGUMENTARY: No edema, No rash, and No itching NEUROLOGIC: Normal balance, No headaches, No seizures, and No weakness Objective: Vascular examination: DP 2/ PT 11/25 SPVFT 3sec Dermatological examination: where foreign body was removed appears healed without signs of infection Orthopedic examination: unremarkable Neurological examination: Epicritic sensation intact Radiological: my interpretation of x-rays: .5cm linear metallic foreign body no longer present Assessment: The encounter diagnosis was Foreign body in right foot, initial encounter. Plan: Patient to observe area for any signs of infection documented in this encounter Nursing Notes * Danette Brito CMA - 08/19/2024 10:08 AM EDT Follow up/ object embedded in right foot. Sent for new xrays last visit. documented in this encounter Plan of Treatment Upcoming Encounters Date Type Department Care Team (Latest Contact Info) Description 10/02/2024 10:20 AM EST Office Visit Dermatology [place] [address] [place] [address] [place] [address] Thalia Ruiz PA-C [address] [place] [address] [place] [address] 10/06/2024 10:15 AM EST Hospital Encounter [facility], End[facility] [place] [address] Abeba Cai, DO [address] [place] [address] 10/06/2024 10:15 AM EST - 10/06/2024 10:45 AM EST Surgery [facility], [facility] [address] [place] [address] Abeba Cai, DO [address] [place] [address] COLONOSCOPY FLEXIBLE PROXIMAL DIAGNOSTIC 11/18/2024 8:00 AM EST Imaging Radiology [facility] [address] [place] [address] 11/25/2024 9:30 AM EST Telemedicine Urology [facility] [address] [place] [address] Jeremy Tariq MD [address] [place] [address], Telemed [facility] Urology Ex [address] [place] [address] 02/19/2025 8:00 AM EDT Office Visit Cardiology, [facility] [address] [facility] [place] [address] Tanika Dumas CRNP [address] [place] [address] 04/30/2025 1:00 PM EDT Office Visit [facility] [address] [facility], [place] [phone] Rosanne Munoz PA-C [address] [place] [address] Scheduled Procedures Name Priority Associated Diagnoses Date/Ti [...] Advance Directives occurred with: Patient Care Teams Printing Machine Operator Tape Rules Relationship Specialty Start Date End Date Rosanne Munoz PA-C [address] [facility] [place] [address] PCP - General Physician Belt Fixer 05/04/24 documented as of this encounter
--- OUTSIDE RECORDS SUMMARY | 2024-10-18 03:39 | External Medical Summary | Summary of Care ---
Author Name Unknown Organization [facility] Address [address] [place] [place] [place] [address] Phone [phone] Care Team Providers Care Airplane Dispatcher Name Role Phone Rosanne Munoz PA-C Primary Care Provider +1 -[phone] Reason for Visit * Reason Comments NEW PATIENT Right foot * Evaluate & Treat - Unlimited Visits (Within 3 days (urgent)) - Authorized Specialty Diagnoses / Procedures Referred By Elaine feldman Referred To Contact Podiatry Diagnoses Right foot pain Localized swelling of right foot Abrasion of sole of foot Kera Scherer MD [address] [place] [address] Referral ID Status Reason Start Date Expiration Date Visits Requested Visits Authorized [id number] Authorized Specialty Services Required 06/18/2024 [id number] Encounter Details Date Type Department Care Team ([facility] st Contact Info) Description 08/05/2024 10:00 AM EDT Office Visit Podiatry [address] [place] [address] Abram Rothman, [facility] [place] [address] Foreign body in right foot, initial encounter* Allergies Active Allergy Reactions Criticality Noted Date Comments Adhesive Tape 08/01/2004 Skin red and irritated Bactrim Diarrhea Medium 10/03/2012 C-diff Latex 08/01/2004 Turns skin red and itches Latex 11/11/2019 Other reaction(s): Rash Trimethoprim Low 11/11/2019 Other reaction(s): Rash documented as of this encounter (statuses as of 08/07/2024) Medications Medication Sig Dispensed Refills Start Date [...] as of this encounter (statuses as of 08/07/2024) Active Problems Problem Noted Date Diagnosed Date [...] as of this encounter (statuses as of 08/07/2024) Resolved Problems Problem Noted Date Diagnosed Date [...] as of this encounter (statuses as of 08/07/2024) Immunizations Name Administration Dates Next Due COVID-19 [...] originally seen by her primary provider on 06/18/24 Patient alert and oriented to person, place [...] OPEN 07/28/2004 Laparoscopic cholecystectomy with cholangiogram 07/28/04 [facility], Dr. Donohue COLONOSCOPY, DIAGNOSTIC (RECTUM) 05/01/2014 hyperplastic polyp, repeat 5 yrs/COLONOSCOPY FLEXIBLE PROXIMAL DIAGNOSTIC performed by Danny Curry MD at ENDOSCOPY [facility] COLONOSCOPY, DIAGNOSTIC (RECTUM) 07/15/2019 adenomatous polyps, diverticulosis, fair prep, repeat 5 yrs /COLONOSCOPY FLEXIBLE PROXIMAL DIAGNOSTIC performed by Danny Curry MD at ENDOSCOPY [facility] CYSTO/URETERO W/LITHOTRIPSY Left 07/07/2024 CYSTOURETHROSCOPY URETEROSCOPY WITH LITHOTRIPSY AND STENT INSERTION performed by Jeremy Tariq MD at OR [facility] CYSTOSCOPY/REMOVE OBJECT, SIMPLE 2007 Cystoscopy, Remove Calculus, Simple EGD, FLEXIBLE, DIAGNOSTIC 03/30/2016 normal bx EGD, FLEXIBLE, DIAGNOSTIC 03/30/2016 ESOPHAGOGASTRODUODENOSCOPY (EGD), FLEXIBLE, TRANSORAL, DIAGNOSTIC performed by Danny Curry MD at ENDOSCOPY [facility] EGD, FLEXIBLE, DIAGNOSTIC 07/01/2021 yulia tariq grade III reflux esophagitis/erosive gastropathy/biopsies show mild irritation of stomach/ESOPHAGOGASTRODUODENOSCOPY (EGD), FLEXIBLE, TRANSORAL, DIAGNOSTIC performed by Paty Reyes DO at ENDOSCOPY [facility] EGD, FLEXIBLE, DIAGNOSTIC 08/09/2022 Mildly severe reflux esophagitis, gastric ulcer, repeat 2 mo / ESOPHAGOGASTRODUODENOSCOPY (EGD), FLEXIBLE, TRANSORAL, DIAGNOSTIC performed by Paty Reyes DO at ENDOSCOPY [facility] EGD, FLEXIBLE, DIAGNOSTIC 10/13/2022 normal / ESOPHAGOGASTRODUODENOSCOPY (EGD), FLEXIBLE, TRANSORAL, DIAGNOSTIC performed by Paty Reyes DO at ENDOSCOPY [facility] IR BIOPSY 03/24/2024 LAP;W/HYSTERECTOMY 1977 Hysterectomy Complete, [facility] MISCELLANEOUS ORDER ([facility] ONLY) 1973 Pre- [...] Not on file 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 Health Financial Resource Strain: [...] Stability Do you currently live in a chcf or have no steady place to sleep [...] Nerve:sensate Left foot Superficial Peroneal Nerve: sensate [place] Emil is sensate Right Vibratory: intact Left [...] 08/12/2024 8:00 AM EDT Office Visit Cardiology, [facility] [address] [place] [address] Tanika Dumas CRNP [address] [place] [address] 08/19/2024 10:15 AM EDT Office Visit Podiatry [address] [place] [phone] Abram Rothman DPM [address] [place] [address] 10/02/2024 10:20 AM EST Office Visit Dermatology[address] [address] Thalia Ruiz PA-C [address] [place] [address] [place] [address] 10/06/2024 10:15 AM EST Hospital Encounter [facility] [address] [place] [phone] Abeba Cai DO [address] [place] [address] 10/06/2024 10:15 AM EST - 10/06/2024 10:45 AM EST Surgery [facility], [facility] [address] [place] [address] Abeba Cai DO [address] [place] [address] COLONOSCOPY FLEXIBLE PROXIMAL DIAGNOSTIC 11/18/2024 8:00 AM EST Imaging [facility] [place] [address] 11/25/2024 9:45 AM EST Office Visit Urology, [facility] [address] [place] [address] Jeremy Tariq MD [address] [place] [address] 04/30/2025 1:00 PM EDT Office Visit [facility] [address] [place] [address] Rosanne Munoz PA-C [address] [place] [address] Scheduled Procedures Name Priority Associated Diagnoses Date/Ti [...] Name Priority Date/Time Associated Diagnosis Comments XR FOOT 3 OR MORE VIEWS Routine 08/05/2024 11:51 AM EDT Foreign body in right foot, initial encounter documented in this encounter Results * XR FOOT 3 OR MORE VIEWS (08/05/2024 11:51 AM EDT) Anatomical Region Laterality Modality Foot, Lower Extremity Digital Ra diography 08/06/2024 5:39 AM EDT Impressions 08/06/2024 5:37 AM EDT IMPRESSION 1. As above. For persistent or unexplained symptoms, CT could be obtained, if clinically indicated. Narrative 08/06/2024 5:37 AM EDT EXAM RT FOOT XR FOOT 3 OR MORE VIEWS - 08/05/2024 11:51 am HISTORY foreign body COMPARISON Preceding imaging. TECHNIQUE Radiography of the RT FOOT was performed. FINDINGS No acute fracture or dislocation. Soft tissue swelling. Degenerative changes. Anterior to the ankle or scattered densities, likely representing mineralization. There is a tiny density underlying the calcaneus which could represent foreign body or mineralization. The linear tiny metallic fragment noted on the 06/30/2024 exam is no longer visualized. Interval postprocedural changes are noted at this region. Procedure Note Memo Sanchez MD - 08/06/2024 EXAM RT FOOT XR FOOT 3 OR MORE VIEWS - 08/05/2024 11:51 am HISTORY foreign body COMPARISON Preceding imaging. TECHNIQUE Radiography of the RT FOOT was performed. FINDINGS No acute fracture or dislocation. Soft tissue swelling. Degenerativechanges. Anterior to the ankle or scattered densities, likelyrepresenting mineralization. There is a tiny density underlying thecalcaneus which could represent foreign body or mineralization. Thelinear tiny metallic fragment noted on the 06/30/2024 exam is no longervisualized. Interval postprocedural changes are noted at this region. IMPRESSION IMPRESSION 1. As above. For persistent or unexplained symptoms, CT could beobtained, if clinically indicated. Abram Rothman DPJadon RADIOLOGY ([facility]) documented in this encounter Visit Diagnoses Diagnosis Foreign body [...] Advance Directives occurred with: Patient Care Teams Airplane Dispatcher Relationship Specialty Start Date End Date Rosanne Munoz PA-C [address] [place] [address] PCP - General Physician Transcribing Machine Operator 05/04/24 documented as of this encounter
[2024-10-18] MEDS: SODIUM CHLORIDE 0.9% 1,000 ML IV ONE (03:53)
[2024-10-18] MEDS: FAMOTIDINE 20MG IV PUSH 20 MG/5 ML SYR IV STA (03:54)
[2024-10-18] MEDS: ACETAMINOPHEN 1,000 MG/100 ML VIAL IV STA (03:54)
[2024-10-18] MEDS: ONDANSETRON INJ 2 MG/ML 2 ML VIAL IV STA (03:56)
[2024-10-18 04:00] LABS: Basophils # (auto) 0.06 K/uL (0.00-0.20); Basophils % (auto) 0.4 %; Eosinophils # (auto) 0.14 K/uL (0.00-0.50); Eosinophils % (auto) 0.8 %; Hematocrit (blood only) 40.3 % (37.0-47.0); Hemoglobin 13.6 g/dl (12.0-16.0); Immature Granulocytes % (auto) 0.6 %; Lymphocytes # (auto) 1.19 K/uL (1.20-3.40); Lymphocytes % (auto) 7.2 %; Mean Corpuscular Hemoglobin 29.7 pg (25.0-34.0); Mean Corpuscular Hgb Conc 33.7 g/dL (32.0-36.0); Mean Platelet Volume 10.3 fL (9.4-12.4); Monocytes # (auto) 0.95 K/uL (0.11-0.59); Monocytes % (auto) 5.7 %; Neutrophils # (auto) 14.15 K/uL (1.40-6.50); Neutrophils % (auto) 85.3 %; Platelet Count 255 K/uL (130-400); RDW Coefficient of Variation 12.6 % (11.5-14.5); RDW Standard Deviation 40.2 fL (36.4-46.3); Red Blood Count 4.58 M/uL (4.20-5.40); White Blood Count 16.59 K/ul (4.8-10.8)
[2024-10-18 04:11] LABS: Albumin Level 4.6 gm/dl (3.4-5.0); BUN Creatinine Ratio 30.7 (10-20); Bilirubin,Total 0.5 mg/dl (0.2-1.0); Calcium 9.5 mg/dl (8.6-10.3); Creatinine Clr Calc Pharmacy 56.5 ml/min; Globulin 2.3 gm/dl (2.5-4.0); Potassium 4.1 mmol/L (3.5-5.1); Total Protein 6.9 gm/dl (6.0-8.3)
[2024-10-18 04:14] LABS: Troponin I High Sensitivity 6.2 pg/ml (0-14)
[2024-10-18 04:26] LABS: Prothrombin Time 10.8 Seconds (9.0-12.0)
--- NOTE | 2024-10-18 05:09 | Emergency Department Note ---
Impression & Plan Abdominal pain, Nausea & vomiting, Diarrhea ED Provider Note ED Provider Note NAME: WILLIAM CANDELARIA AGE:79 SEX: Female : 1945 ARRIVES VIA: EMS INFORMANT: Patient ED PROVIDER(s): Gardenia Villalobos DO CHIEF COMPLAINT: abdominal pain, vomiting, diarrhea HPI: This is a 79-year-old female presents to the emergency department via EMS. She states earlier today she began having abdominal pain and developed nausea and vomiting as well as diarrhea. She states symptoms started at around 11 PM. She states the abdominal pain is central and nonradiating. She denies any hematemesis, melena, or hematochezia. She denies fevers but admits to chills. She denies any recent change in medication or change in diet. No known sick contacts, no recent travel. She states she has previously had a hysterectomy, no other abdominal surgeries. No history of PUD, IBS, or IBD. Patient started on IV fluids by EMS. PAST MEDICAL HISTORY:See Below PAST SURGICAL HISTORY:See Below FAMILY HISTORY:See Below SOCIAL HISTORY:See Below HOME MEDICATIONS:See Below ALLERGIES:See Below VITALS:See Below PHYSICAL EXAMINATION: GENERAL: alert, uncomfortable appearing, well nourished, mild distress, non- toxic EYE EXAM: normal conjunctiva, PERRL and EOM's grossly intact OROPHARYNX: no exudate, no erythema, lips, buccal mucosa, and tongue normal and mucous membranes are dry NECK: supple, no nuchal rigidity, no adenopathy, non-tender LUNGS: Clear to auscultation. Normal chest wall mechanics, no w/r/r HEART: no murmurs, S1 normal and S2 normal ABDOMEN: abdomen soft, central abdominal discomfort with palpation, normo-active bowel sounds, no masses, no rebound or guarding. SKIN: no rashes, petechiae, orbruising UPPER EXTREMITIES: upper extremities are grossly normal. FROM, nml pulses b/l. LOWER EXTREMITIES: No pitting edema. FROM, nml pulses b/l. NEURO EXAM: Normal sensorium, cranial nerves II-XII grossly intact, normal speech, no facial droop,nogross weakness of arms, no gross weakness of legs. Gross sensation intact. No ataxia. Vital Signs: reviewed and remarkable Differential Diagnosis: viral syndrome, gastritis, peptic ulcer disease, GERD, gallbladder disease, pancreatitis, small bowel obstruction, acute coronary syndrome, pericarditis, ischemic bowel, irritable bowel disease, irritable bowel syndrome, appendicitis, diverticulitis, malignancy, hernia, urinary tract infection, perforation, as well as others were considered MEDICAL DECISION MAKING: THis is a 79 yo female who presents to the ER c/o n/v/d and abd pain. She was afebrile and VS stable. Labs drawn and sent, IV established, EKG performed and interpreted at bedside, and patient placed on telemetry. She was started on IVF and given iv tylenol and iv zofran and iv pepcid initially. Labs reassuring, leukcytosis likely from vomiting and diarrhea. She continued to c/o pain and was given IV morphine and sent for CT a/p. CT reassuring. SHe had no further vomiting or diarrhea. She was given additional IVF, IV protonix, another dose of IV morphine and oral bentyl. She was then given oral maalox and she described epigastric burning additionally. Patient continued to c/o of persistent epigastric pain. Due to concern for persistent symptoms refractory to multiple medications, case discussed with the hospitalist team for additional evaluation and mgmt. Consultation(s): 0924: Discussed with Dr. Solares, [facility] hospitalist team, for additional evaluation and management. ER Treatment Provided: See below 0435: Patient still complaining of abdominal pain and nausea. 0600: Patient complaining of epigastric pain, no further nausea. No further episodes of diarrhea. 0835: Patient updated on additional results, additional medications trialed and another liter of IV fluids added. Patient is still not had any further episodes of diarrhea. 0915: No improvement with additional medications for possible gastritis/GERD. Patient still complaining of pain and still unable to tolerate p.o. Diagnostics Interpreted By Me: -ECG: Normal sinus at 70, normal axis, normal intervals, no acute ST/T wave changes -Cardiac Monitoring: An order was placed for continuous cardiac monitoring. The monitor shows a rate of 80 with normal sinus rhythm. -Laboratory studies: As stated above and show below. -Imaging studies: ct a/p - no sbo, no perf Triage Nursing Note Reviewed Prior/Outside Records Reviewed Past Med/Surg History Problem List Diarrhea (Acute) Nausea & vomiting (Acute) Abdominal pain (Acute) Acute meniscal tear of right knee Ureteral stone Hydronephrosis (Acute) Renal colic (Acute) Left sided abdominal pain (Acute) Acute left flank pain (Acute) Encounter for pre-operative examination Psychological disorder Vomiting and diarrhea (Acute) HTN (hypertension) (Acute) Dehydration (Acute) Constipation (Acute) Abdominal pain (Acute) Urinary problem (Chronic) Acne (Chronic) hx Asthma (Chronic) nebulizer prn Medical History History of kidney stones lithotripsy Bipolar disorder Asthma allergy induced, no inhalers, stable Hx of migraines Mild mitral valve prolapse follows with Tanika HOLLOWAY, Sherin Arellano Hyperlipidemia GERD (gastroesophageal reflux disease) Anxiety and depression Surgical History History of cholecystectomy History of hysterectomy Hx of cataract extraction right History of esophagogastroduodenoscopy (EGD) Hx of colonoscopy Hx of non-cataract eye surgery Hx of wisdom tooth extraction Family History Other Heart disease Social History Smoking Status: Never smoker Second Hand Exposure: No; Do You Dip or Chew Tobacco: No; Hx Alcohol Use: No Hx Substance Use: No Preferred Language: [place] Islander Communication Ability: Effective [employer] Required: No Beliefs That Will Affect Care: None marital status: Current Living Situation: Spouse Current Living Situation Comment: at home with current occupational status: retired Other Information That Helps Us Care for You: No Feels Safe at Home: Yes Safety Concerns: Feels Safe At This Time Assistive Devices: Glasses Allergies Allergies Allergy/AdvReac Type Severity Reaction Status Date / Time Sulfa (Sulfonamide Allergy Mild Rash Verified 10/18/24 09:23 Antibiotics) sulfamethoxazole Allergy Mild Rash Verified 10/18/24 09:23 trimethoprim Allergy Mild Rash Verified 10/18/24 09:23 adhesive Allergy Unknown Skin Verified 10/18/24 09:23 Irritation latex Allergy Unknown Rash Verified 10/18/24 09:23 Home Meds Home Medications Medication Instructions Recorded Confirmed acetaminophen 325 mg tablet 650 mg PO QID PRN Pain 11/10/19 10/18/24 (Tylenol) pantoprazole 40 mg tablet,delayed 40 mg PO BID 11/10/19 10/18/24 release bupropion HCl 150 mg tablet,12 hr 150 mg PO QAM 03/20/23 10/18/24 sustained-release lamotrigine 100 mg tablet 100 mg PO QPM 03/20/23 10/18/24 rosuvastatin 5 mg tablet 5 mg PO DAILY 03/20/23 10/18/24 desvenlafaxine succinate 50 mg 50 mg PO QPM 07/01/24 10/18/24 tablet,extended release 24 hr cyanocobalamin (vitamin B-12) 3,000 mcg PO QAM 08/14/24 10/18/24 1,000 mcg tablet (Vitamin B-12) ergocalciferol (vitamin D2) 1,250 50,000 unit PO WK 10/18/24 10/18/24 mcg (50,000 unit) capsule gabapentin 400 mg capsule See Rx Instructions .Route .COMPLEX 10/18/24 10/18/24 Results & Data (ED) Vital Signs Vital Signs - 24 hr 10/18/24 03:38 10/18/24 03:40 10/18/24 04:51 Temperature 36.7 C Temperature Source Oral Pulse Rate 68 73 78 Pulse Rate [Left Finger] Respiratory Rate 20 18 Respiratory Effort / Characteristics Non-Labored Spontaneous Respiratory Depth Normal Blood Pressure 119/83 133/75 Blood Pressure [Left Arm] Blood Pressure Mean 95 93 Blood Pressure Mean [Left Arm] Pulse Oximetry 100 100 Oxygen Delivery Method Room Air Room Air Sepsis Recent Fever Within 48 Hours No Sepsis New/Unexplained Change in Mental Status N/A Sepsis Action Taken by Nursing No Action Required 10/18/24 07:00 10/18/24 08:05 Temperature Temperature Source Pulse Rate 81 Pulse Rate [Left Finger] 73 Respiratory Rate 16 Respiratory Effort / Characteristics Respiratory Depth Blood Pressure Blood Pressure [Left Arm] 152/73 H Blood Pressure Mean Blood Pressure Mean [Left Arm] 99 Pulse Oximetry 98 Oxygen Delivery Method Sepsis Recent Fever Within 48 Hours Sepsis New/Unexplained Change in Mental Status Sepsis Action Taken by Nursing Laboratory Data 10/20/24 05:32 10/20/24 05:32 Lab Results 10/18/24 10/18/24 Range/Units 03:39 05:10 WBC 16.59 H (4.8-10.8) K/ul RBC 4.58 (4.20-5.40) M/uL Hgb 13.6 (12.0-16.0) g/dl Hct 40.3 (37.0-47.0) % MCV 88.0 (80.0-100.0) fL MCH 29.7 (25.0-34.0) pg MCHC 33.7 (32.0-36.0) g/dL RDW Std Deviation 40.2 (36.4-46.3) fL RDW Coeff of Felisha 12.6 (11.5-14.5) % Plt Count 255 (130-400) K/uL MPV 10.3 (9.4-12.4) fL Immature Gran % (Auto) 0.6 % Neut % (Auto) 85.3 % Lymph % (Auto) 7.2 % Pender % (Auto) 5.7 % Eos % (Auto) 0.8 % Baso % (Auto) 0.4 % Neut # (Auto) 14.15 H (1.40-6.50) K/uL Lymph # (Auto) 1.19 L (1.20-3.40) K/uL Pender # (Auto) 0.95 H (0.11-0.59) K/uL Eos # (Auto) 0.14 (0.00-0.50) K/uL Baso # (Auto) 0.06 (0.00-0.20) K/uL Immature Gran # (Auto) 0.10 (0.01-0.20) K/uL PT 10.8 (9.0-12.0) Seconds INR 1.0 (0.9-1.1) Sodium 141 (136-145) mmol/L Potassium 4.1 (3.5-5.1) mmol/L Chloride 105 (98-107) mmol/L Carbon Dioxide 27 (21-32) mmol/L Anion Gap 9 (3-11) BUN 23 (6-23) mg/dl Creatinine 0.75 (0.6-1.2) mg/dl Est Cr Clr Drug Dosing 56.5 ml/min eGFR 81.95 BUN/Creatinine Ratio 30.7 H (10-20) Glucose 110 H (70-99(Fasting)) mg/dl Calcium 9.5 (8.6-10.3) mg/dl Magnesium 2.0 (1.7-2.4) mg/dl Total Bilirubin 0.5 (0.2-1.0) mg/dl AST 16 (13-39) U/L ALT 13 (7-52) U/L Alkaline Phosphatase 61 (34-104) U/L Troponin I High Sens 6.2 (0-14) pg/ml Total Protein 6.9 (6.0-8.3) gm/dl Albumin 4.6 (3.4-5.0) gm/dl Globulin 2.3 L (2.5-4.0) gm/dl Albumin/Globulin Ratio 2.0 (0.9-2) Lipase 36 (11-82) U/L Urine Color Yellow Urine Appearance Clear (Clear) Urine pH 7.0 (4.5-7.5) Ur Specific Orient 1.009 (1.000-1.030) Urine Protein Negative (Negative) Urine Glucose (UA) Negative (Negative) Urine Ketones Negative (Negative) Urine Blood Negative (Negative) Urine Nitrite Negative (Negative) Urine Bilirubin Negative (Negative) Urine Urobilinogen Negative (Negative) Ur Leukocyte Esterase Negative (Negative) Administered Medications Al Hydrox/Mg Hydrox/Simethicone (Aluminum/Magnesium Susp 30 Ml Udc) 15 ml PO Q4H PRN PRN Reason: Dyspepsia Stop: 11/17/24 13:12 Last Admin: 10/20/24 04:38 Dose: 15 ml Documented By: Admin: 10/19/24 08:08 Dose: 15 ml Documented By: SEAN Bupropion HCl (Bupropion Sr 150 Mg Tabcr) 150 mg PO [facility] Stop: 11/18/24 08:59 Last Admin: 10/19/24 08:14 Dose: 150 mg Documented By: SEAN Cyanocobalamin (Cyanocobalamin (B-12) 500 Mcg Tablet) 3,000 mcg PO QAM [facility] Stop: 11/18/24 08:59 Last Admin: 10/19/24 08:14 Dose: 3,000 mcg Documented By: SEAN Gabapentin (Gabapentin 400 Mg Cap) 400 mg PO TID [facility] Stop: 11/17/24 13:59 Last Admin: 10/19/24 20:41 Dose: 400 mg Documented By: Admin: 10/19/24 13:45 Dose: 400 mg Documented By: Admin: 10/19/24 08:14 Dose: 400 mg Documented By: Admin: 10/18/24 22:30 Dose: 400 mg Documented By: Admin: 10/18/24 13:20 Dose: 400 mg Documented By: SOFIA Hydromorphone HCl (Hydromorphone Inj 0.5 Mg/0.5 Ml Syr) 0.5 mg IV Q6H PRN PRN Reason: Severe Pain (Scale 7, 8, 9,10) Stop: 11/01/24 12:47 Last Admin: 10/19/24 08:07 Dose: 0.5 mg Documented By: SEAN Hydromorphone HCl (Hydromorphone Inj 0.5 Mg/0.5 Ml Syr) 0.5 mg IV Q4H PRN PRN Reason: moderate to severe pain Stop: 11/01/24 13:12 Last Admin: 10/19/24 12:04 Dose: 0.5 mg Documented By: SEAN Acetaminophen (Ofirmev) 1,000 mg in 100 mls @ 400 mls/hr IV Q8H KARI Stop: 10/21/24 11:59 Last Infusion: 10/20/24 04:49 Dose: Infused Documented By: Admin: 10/20/24 04:34 Dose: 400 mls/hr Documented By: Infusion: 10/19/24 20:53 Dose: Infused Documented By: Admin: 10/19/24 20:38 Dose: 400 mls/hr Documented By: Infusion: 10/19/24 11:33 Dose: Infused Documented By: Admin: 10/19/24 11:18 Dose: 400 mls/hr Documented By: Infusion: 10/19/24 04:37 Dose: Infused Documented By: Admin: 10/19/24 04:22 Dose: 400 mls/hr Documented By: Infusion: 10/18/24 21:06 Dose: Infused Documented By: Admin: 10/18/24 20:51 Dose: 400 mls/hr Documented By: Infusion: 10/18/24 12:35 Dose: Infused Documented By: Admin: 10/18/24 12:16 Dose: 400 mls/hr Documented By: SOFIA Pantoprazole Sodium (Protonix) 40 mg in 10 mls @ 5 mls/min IV BID [facility] Stop: 11/17/24 20:59 Last Admin: 10/19/24 20:41 Dose: 5 mls/min Documented By: Admin: 10/19/24 08:12 Dose: 5 mls/min Documented By: Admin: 10/18/24 22:31 Dose: 5 mls/min Documented By: JANY Promethazine HCl (Phenergan) 12.5 mg in 50.5 mls @ 202 mls/hr IV Q6H PRN PRN Reason: Nausea And Vomiting Stop: 11/17/24 13:12 Last Infusion: 10/19/24 11:57 Dose: Infused Documented By: Admin: 10/19/24 11:40 Dose: 202 mls/hr Documented By: SEAN Lamotrigine (Lamotrigine 100 Mg Tab) 100 mg PO QPM [facility]; Protocol Stop: 11/17/24 20:59 Last Admin: 10/19/24 20:41 Dose: 100 mg Documented By: Admin: 10/18/24 22:31 Dose: 100 mg Documented By: JANY Miscellaneous (Desvenlafaxine ~ Order Awaiting Action) 1 each N/A QS [facility] Stop: 11/17/24 15:59 Last Admin: 10/19/24 23:40 Dose: Not Given Documented By: Admin: 10/19/24 15:08 Dose: Not Given Documented By: Admin: 10/19/24 10:30 Dose: Not Given Documented By: Admin: 10/19/24 01:05 Dose: Not Given Documented By: Admin: 10/18/24 20:38 Dose: Not Given Documented By: JANY Sucralfate (Sucralfate 1 Gm/10 Ml Udc) 1 gm PO QID [facility] Stop: 11/17/24 12:59 Last Admin: 10/19/24 20:41 Dose: 1 gm Documented By: Admin: 10/19/24 16:19 Dose: 1 gm Documented By: Admin: 10/19/24 12:04 Dose: 1 gm Documented By: Admin: 10/19/24 08:14 Dose: 1 gm Documented By: Admin: 10/18/24 22:31 Dose: 1 gm Documented By: Admin: 10/18/24 17:29 Dose: 1 gm Documented By: Admin: 10/18/24 13:19 Dose: 1 gm Documented By: SOFIA Discontinued Medications Al Hydrox/Mg Hydrox/Simethicone (Aluminum/Magnesium Susp 30 Ml Udc) 15 ml PO NOW STA Stop: 10/18/24 08:25 Last Admin: 10/18/24 08:50 Dose: 15 ml Documented By: QGV Dicyclomine HCl (Dicyclomine Hcl 10 Mg Cap) 10 mg PO NOW ONE Stop: 10/18/24 08:25 Last Admin: 10/18/24 08:51 Dose: 10 mg Documented By: QGV Dicyclomine HCl (Bentyl Home Pack 10 Mg Vial) 1 ea PO UD ONE Stop: 10/18/24 08:40 Last Admin: 10/18/24 09:27 Dose: Not Given Documented By: QGV Hydromorphone HCl (Hydromorphone Inj 0.5 Mg/0.5 Ml Syr) 0.5 mg IV NOW STA Stop: 10/18/24 09:39 Last Admin: 10/18/24 09:52 Dose: 0.5 mg Documented By: SOFIA Sodium Chloride (Nss) 1,000 mls @ 999 mls/hr IV .Q1H1M ONE Stop: 10/18/24 04:45 Last Infusion: 10/18/24 04:54 Dose: Infused Documented By: Admin: 10/18/24 03:53 Dose: 999 mls/hr Documented By: ELIAS Acetaminophen (Ofirmev) 1,000 mg in 100 mls @ 400 mls/hr IV NOW STA Stop: 10/18/24 03:59 Last Infusion: 10/18/24 04:09 Dose: Infused Documented By: Admin: 10/18/24 03:54 Dose: 400 mls/hr Documented By: ELIAS Famotidine (Pepcid 20mg Iv Push) 20 mg in 5 mls @ 2.5 mls/min IV NOW STA Stop: 10/18/24 03:46 Last Admin: 10/18/24 03:54 Dose: 2.5 mls/min Documented By: ELIAS Pantoprazole Sodium (Protonix) 40 mg in 10 mls @ 5 mls/min IV NOW ONE Stop: 10/18/24 08:26 Last Admin: 10/18/24 08:51 Dose: 5 mls/min Documented By: SELENE Sodium Chloride (Nss) 1,000 mls @ 125 mls/hr IV .Q8H KARI Stop: 10/19/24 08:44 Last Infusion: 10/18/24 15:00 Dose: Infused Documented By: Admin: 10/18/24 08:45 Dose: 125 mls/hr Documented By: SOFIA Potassium Chloride/Sodium Chloride (Normal Saline W/20 Meq Kcl) 20 meq in 1,000 mls @ 80 mls/hr IV .[id number] KARI Stop: 10/19/24 12:59 Last Infusion: 10/19/24 15:07 Dose: Infused Documented By: Admin: 10/19/24 02:05 Dose: 80 mls/hr Documented By: Infusion: 10/19/24 02:05 Dose: Infused Documented By: Admin: 10/18/24 13:21 Dose: 80 mls/hr Documented By: SOFIA Ioversol (Optiray 320 100ml) 94 ml IV ONCE ONE Stop: 10/18/24 06:43 Last Admin: 10/18/24 06:43 Dose: 94 ml Documented By: NICOLE Morphine Sulfate (Morphine Sulfate 2 Mg/Ml Carp) 2 mg IV NOW STA Stop: 10/18/24 05:41 Last Admin: 10/18/24 05:47 Dose: 2 mg Documented By: ELIAS Morphine Sulfate (Morphine Sulfate 4 Mg/Ml 1 Ml Carp\Vial) 4 mg IV NOW STA Stop: 10/18/24 07:03 Last Admin: 10/18/24 07:06 Dose: 4 mg Documented By: SOFIA Morphine Sulfate (Morphine Sulfate 2 Mg/Ml Carp) 2 mg IV NOW STA Stop: 10/18/24 09:00 Last Admin: 10/18/24 09:04 Dose: 2 mg Documented By: MARYV Ondansetron HCl (Ondansetron Inj 2 Mg/Ml 2 Ml Vial) 4 mg IV NOW STA Stop: 10/18/24 03:46 Last Admin: 10/18/24 03:56 Dose: 4 mg Documented By: ELIAS Ondansetron HCl (Ondansetron Home Pack 4mg Od Tab) 1 each PO NOW ONE Stop: 10/18/24 08:40 Last Admin: 10/18/24 09:27 Dose: Not Given Documented By: QGV Imaging Data Radiologist's Impression: Abdomen/Pelvis CT 10/18/24 05:45 EXAM: CT abd pelvis IV con only CLINICAL HISTORY: Last evening started not feeling well. Around 2300 had N/V/D and chills. Feels bloated. Denies CP or SOB. TECHNIQUE: CT of the abdomen and pelvis was performed with IV contrast, with the following protocol: axial images with reconstructed coronal and sagittal images. One of the following dose reduction techniques was utilized for this exam: Automated exposure control, adjustment of the mA and/or kV according to patient size, and use of iterative reconstruction. COMPARISON: CT dated 06/24/2024. FINDINGS: Abdomen: Liver: Normal in size, shape, and density. Small marginally enhancing focal lesion noted in segment Roberta measures 7.3 mm, could be hemangioma. No cysts, or masses were identified. Hepatic vasculature and biliary ducts are unremarkable. Gallbladder and Biliary System: The gallbladder is removed surgically. CBD is measuring 1.1cm due to post cholecystectomy status. Pancreas: Pancreatic head, body, and tail are visualized and appear normal in size and density. No pancreatic masses or calcifications were noted. The pancreatic duct is not dilated. Spleen: Normal in size, shape, and density. No splenic lesions or masses were identified. Kidneys and Adrenal Glands: Both kidneys are normal in size, shape, and position. Tiny left cortical cyst. Cortical thickness is within normal limits. No renal calculi or hydronephrosis. Adrenal glands are unremarkable with no evidence of masses or hyperplasia. Pelvis: Urinary Bladder: Normal in contour and wall thickness. No intraluminal lesions were identified. Uterus: Removed surgically. Ovaries: Not well visualized but no gross abnormalities were noted. Bowel: The small bowel shows prominent diameter 2-2.5cm, no gross wall thickening. No evidence of bowel obstruction. Bones and Soft Tissues: Pelvic bones and soft tissues are unremarkable. No fractures or abnormal masses were identified. Lower chest shows mild bilateral lower lobe bronchiectasis, and bilateral sub-pleural line and thin atlectatic band bilaterally. A small hiatus hernia. IMPRESSION: 1. Interval new prominent diameter of the small bowel measuring 2-2.5cm, no gross wall thickening. No evidence of bowel obstruction, features could be related to inflammatory/infectious process. Clinical correlation is suggested. 2. Small marginally enhancing hepatic focal lesion noted in segment Roberta measures 7.3 mm, could be hemangioma. 3. Tiny stable left renal uncomplicated cortical cyst. 4. Lower chest shows mild bilateral lower lobe bronchiectasis, and bilateral sub-pleural line and thin atlectatic band bilaterally. These findings are more conspicuous in the current study. Further Chest CT is suggested as clinically indicated. 5. Interval improved left sided hydronephrosis due to left mid-uretric stone. 6. Stable small hiatus hernia. 7. The rest of the abdomen and pelvis demonstrate normal findings. Electronically signed by Nicolas Purvis 10-18-2024 08:22 AM Discharge Plan Visit Data Chief Complaint: Abdominal Pain Stated Complaint: N/V, Abdominal Pain, Weakness ED Provider: Gardenia Villalobos Discharge Problem: Abdominal pain, Nausea & vomiting, Diarrhea Patient Disposition: Admitted As Inpatient Condition: Good Discharge Instructions Interventions: ED Discharge Assessment Last Done: 10/18/24 12:36
[2024-10-18 05:41] LABS: Appearance Urine Clear (Clear); Bilirubin Urine Negative (Negative); Blood Urine Negative (Negative); Color Urine Yellow; Glucose Urine UA Negative (Negative); Ketones Urine Negative (Negative); Leukocyte Esterase Urine Negative (Negative); Nitrite Urine Negative (Negative); Protein Urine Negative (Negative); Specific Gravity Urine 1.009 (1.000-1.030); Urobilinogen Urine Negative (Negative)
[2024-10-18] MEDS: MoRPHine SULFATE 2 MG/ML CARP IV STA ×2 (05:47→09:04)
[2024-10-18] MEDS: OPTIRAY 320 100ml IV ONE (06:43)
[2024-10-18] MEDS: MoRPHine SULFATE 4 MG/ML 1 ML CARP\\VIAL IV STA (07:06)
--- NOTE | 2024-10-18 08:23 | CT Scan Report ---
EXAM: CT abd pelvis IV con only CLINICAL HISTORY: Last evening started not feeling well. Around 2300 had N/V/D and chills. Feels bloated. Denies CP or SOB. TECHNIQUE: CT of the abdomen and pelvis was performed with IV contrast, with the following protocol: axial images with reconstructed coronal and sagittal images. One of the following dose reduction techniques was utilized for this exam: Automated exposure control, adjustment of the mA and/or kV according to patient size, and use of iterative reconstruction. COMPARISON: CT dated 06/24/2024. FINDINGS: Abdomen: Liver: Normal in size, shape, and density. Small marginally enhancing focal lesion noted in segment Roberta measures 7.3 mm, could be hemangioma. No cysts, or masses were identified. Hepatic vasculature and biliary ducts are unremarkable. Gallbladder and Biliary System: The gallbladder is removed surgically. CBD is measuring 1.1cm due to post cholecystectomy status. Pancreas: Pancreatic head, body, and tail are visualized and appear normal in size and density. No pancreatic masses or calcifications were noted. The pancreatic duct is not dilated. Spleen: Normal in size, shape, and density. No splenic lesions or masses were identified. Kidneys and Adrenal Glands: Both kidneys are normal in size, shape, and position. Tiny left cortical cyst. Cortical thickness is within normal limits. No renal calculi or hydronephrosis. Adrenal glands are unremarkable with no evidence of masses or hyperplasia. Pelvis: Urinary Bladder: Normal in contour and wall thickness. No intraluminal lesions were identified. Uterus: Removed surgically. Ovaries: Not well visualized but no gross abnormalities were noted. Bowel: The small bowel shows prominent diameter 2-2.5cm, no gross wall thickening. No evidence of bowel obstruction. Bones and Soft Tissues: Pelvic bones and soft tissues are unremarkable. No fractures or abnormal masses were identified. Lower chest shows mild bilateral lower lobe bronchiectasis, and bilateral sub-pleural line and thin atlectatic band bilaterally. A small hiatus hernia. IMPRESSION: 1. Interval new prominent diameter of the small bowel measuring 2-2.5cm, no gross wall thickening. No evidence of bowel obstruction, features could be related to inflammatory/infectious process. Clinical correlation is suggested. 2. Small marginally enhancing hepatic focal lesion noted in segment Roberta measures 7.3 mm, could be hemangioma. 3. Tiny stable left renal uncomplicated cortical cyst. 4. Lower chest shows mild bilateral lower lobe bronchiectasis, and bilateral sub-pleural line and thin atlectatic band bilaterally. These findings are more conspicuous in the current study. Further Chest CT is suggested as clinically indicated. 5. Interval improved left sided hydronephrosis due to left mid-uretric stone. 6. Stable small hiatus hernia. 7. The rest of the abdomen and pelvis demonstrate normal findings. Electronically signed by Nicolas Purvis 10-18-2024 08:22 AM
[2024-10-18] MEDS: SODIUM CHLORIDE 0.9% 1,000 ML IV SCH (08:45)
[2024-10-18] MEDS: ALUMINUM/MAGNESIUM SUSP 30 ML UDC PO STA (08:50)
[2024-10-18] MEDS: BENTYL HOME PACK 10 MG VIAL PO ONE (08:51)
[2024-10-18] MEDS: PANTOprazole 40 MG/10 ML SYR IV ONE (08:51)
[2024-10-18] MEDS: DICYCLOMINE HCL 10 MG CAP PO ONE (08:51)
[2024-10-18] MEDS: ONDANSETRON HOME PACK 4MG OD TAB PO ONE (08:51)
[2024-10-18] MEDS: HYDROmorphone INJ 0.5 MG/0.5 ML SYR IV STA (09:52)
--- NOTE | 2024-10-18 11:30 | Electrocardiogram Report ---
Test Reason : Blood Pressure : */* mmHG Vent. Rate : 70 BPM Atrial Rate : 70 BPM P-R Int : 196 ms QRS Dur : 96 ms QT Int : 420 ms P-R-T Axes : 67 39 74 degrees QTcB Int : 453 ms Normal sinus rhythm Incomplete right bundle branch block Borderline ECG When compared with ECG of 13-Jun-2021 18:18, Premature ventricular complexes are no longer Present Confirmed by Starr Aponte ([place]) on 10/18/2024 11:30:23 AM Referred By: REFERRED SELF Confirmed By: Starr Aponte
[2024-10-18] MEDS: ACETAMINOPHEN 1,000 MG/100 ML VIAL IV SCH (12:16)
--- NOTE | 2024-10-18 12:46 | History & Physical Report ---
Date of Service October 18, 2024 Assessment & Plan (1) Abdominal pain: (2) Vomiting and diarrhea: Plan: 79-year-old female with history of gastric ulcer, gastroesophageal reflux disease, dyslipidemia, bipolar 1 disorder, nephrolithiasis Presenting with abdominal pain vomiting, diarrhea since last evening. Severe abdominal pain, with vomiting and diarrhea Possible peptic ulcer disease Possible gastroenteritis Patient has a history of gastric ulcer, esophagitis, status post EGD in 2021. She is currently taking Protonix 40 mg twice daily. Patient reports she also takes ibuprofen as needed.Other chronic medical problems: Dyslipidemia Nephrolithiasis Bipolar disorder She denies eating any unusual food or drinks recently. Stool PCR: Pending Stool for C. difficile: Pending CT abdomen and pelvis: Possible inflammatory/infectious process in the small bowel parkinson, no bowel obstruction *Please refer to full report Protonix 40 mg IV twice daily Sucralfate 4 times daily Dilaudid and morphine as needed for pain N.p.o. IV NSS GI consulted Other chronic medical problems: Dyslipidemia Nephrolithiasis Bipolar disorder DVT prophylaxis SCDs for now Full code as per patient Disposition Lives with family at home Admission and Anticipated Discharge Date Admission Date: October 18, 2024 History of Present Illness Chief Complaint: Abdominal pain, vomiting, diarrhea starting last night Primary Care Provider: Devan Montes MD 79-year-old female with history of gastric ulcer, gastroesophageal reflux disease, dyslipidemia, bipolar 1 disorder, nephrolithiasis Presenting with abdominal pain vomiting, diarrhea since last evening. As per patient, she her stomach was not feeling great the whole day yesterday. She could not describe exactly her symptoms but states her stomach was just feeling off and had to be careful with what she was eating. In the evening, patient developed severe abdominal, mostly epigastric pain, sharp, burning which then progressed to multiple episodes of vomiting-nonbloody, nonbilious. Afterwards she also developed multiple episodes of nonbloody diarrhea. No fevers or chills, headache, chest pain, shortness of breath, sw eating. Persistence of symptoms prompted patient to come to the ER. At the ER, patient was received with stable vital signs overall WBC 16,000 Renal function, LFTs, lipase normal Urinalysis also normal CT abdomen and pelvis: Interval new prominent diameter of the small bowel measuring 2-2.5cm, no gross wall thickening. No evidence of bowel obstruction, features could be related to inflammatory/infectious process. Clinical correlation is suggested. She was given multiple doses of morphine, Protonix, Zofran, Bentyl without improvement. On exam, patient seen sitting up in bed, not in distress, but still reporting severe epigastric pain-mostly sharp. No active nausea or diarrhea on my exam. Still without chest pain, shortness of breath, palpitations, dizziness Allergies Allergy/AdvReac Type Severity Reaction Status Date / Time Sulfa (Sulfonamide Allergy Mild Rash Verified 10/18/24 09:23 Antibiotics) sulfamethoxazole Allergy Mild Rash Verified 10/18/24 09:23 trimethoprim Allergy Mild Rash Verified 10/18/24 09:23 adhesive Allergy Unknown Skin Verified 10/18/24 09:23 Irritation latex Allergy Unknown Rash Verified 10/18/24 09:23 Home Medications Medication Instructions Recorded Confirmed Type acetaminophen 325 mg tablet 650 mg PO QID PRN Pain 11/10/19 10/18/24 History (Tylenol) pantoprazole 40 mg tablet,delayed 40 mg PO BID 11/10/19 10/18/24 History release bupropion HCl 150 mg tablet,12 hr 150 mg PO QAM 03/20/23 10/18/24 History sustained-release lamotrigine 100 mg tablet 100 mg PO QPM 03/20/23 10/18/24 History rosuvastatin 5 mg tablet 5 mg PO DAILY 03/20/23 10/18/24 History desvenlafaxine succinate 50 mg 50 mg PO QPM 07/01/24 10/18/24 History tablet,extended release 24 hr cyanocobalamin (vitamin B-12) 3,000 mcg PO QAM 08/14/24 10/18/24 History 1,000 mcg tablet (Vitamin B-12) ergocalciferol (vitamin D2) 1,250 50,000 unit PO WK 10/18/24 10/18/24 History mcg (50,000 unit) capsule gabapentin 400 mg capsule See Rx Instructions .Route .COMPLEX 10/18/24 10/18/24 History Past Med/Surg History Problem List (Updated 10/18/24 @ 05:09 by Gardenia Villalobos DO) Diarrhea (Acute) Nausea & vomiting (Acute) Abdominal pain (Acute) Acute meniscal tear of right knee Ureteral stone Hydronephrosis (Acute) Renal colic (Acute) Left sided abdominal pain (Acute) Acute left flank pain (Acute) Encounter for pre-operative examination Psychological disorder Vomiting and diarrhea (Acute) HTN (hypertension) (Acute) Dehydration (Acute) Constipation (Acute) Abdominal pain (Acute) Urinary problem (Chronic) Acne (Chronic) hx Asthma (Chronic) nebulizer prn Medical History History of kidney stones lithotripsy Bipolar disorder Asthma allergy induced, no inhalers, stable Hx of migraines Mild mitral valve prolapse follows with Tanika HOLLOWAY, Sherin Arellano Hyperlipidemia GERD (gastroesophageal reflux disease) Anxiety and depression Surgical History History of cholecystectomy History of hysterectomy Hx of cataract extraction right History of esophagogastroduodenoscopy (EGD) Hx of colonoscopy Hx of non-cataract eye surgery Hx of wisdom tooth extraction Family History Other Heart disease Social History Smoking Status: Former smoker Second Hand Exposure: No; Do You Dip or Chew Tobacco: No; Hx Alcohol Use: No Hx Substance Use: No Preferred Language: Wolof Communication Ability: Effective On Line Csr Required: No Beliefs That Will Affect Care: None marital status: Current Living Situation: Spouse Current Living Situation Comment: at home with current occupational status: retired Feels Safe at Home: Yes Assistive Devices: Glasses Review of Systems Review of Systems: all noted and negative except for above Physical Exam Physical Exam: General- oriented x 3, not in distress, speaks in sentences with no effort or accessory muscle use Anxious Head- atraumatic Eyes- PERRL, EOMI, anicteric ENT- oropharynx clear Neck- supple, no JVD, no adenopathy, no thyromegaly; carotids +2/2, no bruits appreciated Lungs- clear to auscultation bilaterally, no rales/wheezes Heart- normal rate, regular rhythm; no murmur, no gallop, no rub appreciated Abdomen- normal bowel sounds, nondistended, soft,Mild tenderness in all quadrants, no masses or hepatosplenomegaly Extremities- no pretibial edema, no calf tenderness; peripheral pulses intact Neuro- alert, oriented x 3; CN 2-12 grossly intact; motor 5/5 bilaterally;sensation 100% on all extremities; no other gross focal neurologic deficits Skin- warm & dry Results & Data Results & Data Vital Signs (Past 12 Hours) Vital Signs Temp Pulse Pulse Resp BP BP Pulse Ox 10/18/24 12:18 83 20 138/75 98 10/18/24 09:53 79 20 171/88 H 100 10/18/24 08:05 81 10/18/24 07:00 73 16 152/73 H 98 10/18/24 04:51 78 18 133/75 100 10/18/24 03:40 73 10/18/24 03:38 36.7 C 68 20 119/83 100 O2 Del Method 10/18/24 12:18 10/18/24 09:53 Room Air 10/18/24 08:05 10/18/24 07:00 10/18/24 04:51 Room Air 10/18/24 03:40 10/18/24 03:38 Room Air all noted and reviewed including below Code Status & VTE Plan VTE Prophylaxis Plan VTE Prophylaxis will be ordered: Yes
[2024-10-18] MEDS ORDERED: MoRPHine SULFATE 4 MG/ML 1 ML CARP\\VIAL IV PRN (12:49)
[2024-10-18] MEDS ORDERED: SUCRALFATE 1 GM/10 ML UDC PO SCH (13:13)
[2024-10-18] MEDS ORDERED: NSS + 20MEQ KCL 20 MEQ/1,000 ML BAG IV SCH (13:13)
[2024-10-18] MEDS: SUCRALFATE 1 GM/10 ML UDC PO SCH (13:19)
[2024-10-18] MEDS: GABAPENTIN 400 MG CAP PO SCH (13:20)
[2024-10-18] MEDS: NSS + 20MEQ KCL 20 MEQ/1,000 ML BAG IV SCH (13:21)
[2024-10-18] MEDS: PANTOprazole 40 MG/10 ML SYR IV SCH (22:31)
[2024-10-18] MEDS: lamoTRIgine 100 MG TAB PO SCH (22:31)
[2024-10-19 05:00] LABS: Basophils # (auto) 0.03 K/uL (0.00-0.20); Basophils % (auto) 0.7 %; Eosinophils # (auto) 0.18 K/uL (0.00-0.50); Eosinophils % (auto) 4.2 %; Hematocrit (blood only) 34.6 % (37.0-47.0); Hemoglobin 11.3 g/dl (12.0-16.0); Immature Granulocytes # (auto) 0.02 K/uL (0.01-0.20); Immature Granulocytes % (auto) 0.5 %; Lymphocytes # (auto) 0.99 K/uL (1.20-3.40); Lymphocytes % (auto) 23.2 %; Mean Corpuscular Hemoglobin 29.4 pg (25.0-34.0); Mean Corpuscular Hgb Conc 32.7 g/dL (32.0-36.0); Mean Corpuscular Volume 89.9 fL (80.0-100.0); Mean Platelet Volume 10.6 fL (9.4-12.4); Monocytes # (auto) 0.45 K/uL (0.11-0.59); Monocytes % (auto) 10.6 %; Neutrophils # (auto) 2.59 K/uL (1.40-6.50); Neutrophils % (auto) 60.8 %; Platelet Count 185 K/uL (130-400); RDW Standard Deviation 42.5 fL (36.4-46.3); Red Blood Count 3.85 M/uL (4.20-5.40); White Blood Count 4.26 K/ul (4.8-10.8)
[2024-10-19 05:13] LABS: Albumin Level 3.7 gm/dl (3.4-5.0); BUN Creatinine Ratio 15.5 (10-20); Bilirubin,Total 0.4 mg/dl (0.2-1.0); Calcium 8.3 mg/dl (8.6-10.3); Creatinine Clr Calc Pharmacy 74.6 ml/min; Potassium 3.8 mmol/L (3.5-5.1); Total Protein 5.6 gm/dl (6.0-8.3)
[2024-10-19 07:40] LABS: Adenovirus F 40/41 PCR Not Detected (NotDetected); Astrovirus PCR Not Detected (NotDetected); Campylobacter PCR Not Detected (NotDetected); Cryptosporidium PCR Not Detected (NotDetected); Cyclospora cayetanensis PCR Not Detected (NotDetected); Entamoeba histolytica PCR Not Detected (NotDetected); Enteroaggregative E.coli(EAEC) Not Detected (NotDetected); Enteropathogenic E.coli (EPEC) Not Detected (NotDetected); Enterotoxigenic E.coli (ETEC) Not Detected (NotDetected); Giardia lamblia PCR Not Detected (NotDetected); Plesiomonas shigelloides PCR Not Detected (NotDetected); Rotavirus A PCR Not Detected (NotDetected); Salmonella PCR Not Detected (NotDetected); Sapovirus PCR Not Detected (NotDetected); Shiga-like Toxin E.coli (STEC) Not Detected (NotDetected); Shigella/Enteroinvasive E.coli Not Detected (NotDetected); Vibrio cholerae PCR Not Detected (NotDetected); Vibrio species PCR Not Detected (NotDetected); Yersinia enterocolitica PCR Not Detected (NotDetected)
[2024-10-19] MEDS: HYDROmorphone INJ 0.5 MG/0.5 ML SYR IV PRN ×2 (08:07→12:04)
[2024-10-19] MEDS: ALUMINUM/MAGNESIUM SUSP 30 ML UDC PO PRN (08:08)
[2024-10-19] MEDS: CYANOCOBALAMIN (B-12) 500 MCG TABLET PO SCH (08:14)
[2024-10-19] MEDS: buPROPion SR 150 MG TABCR PO SCH (08:14)
[2024-10-19 08:54] LABS: Norovirus GI/GII PCR DETECTED (NotDetected)
--- NOTE | 2024-10-19 10:13 | Gastrointestinal Consultation ---
Date of Consultation October 19, 2024 Assessment & Plan (1) Abdominal pain: Her symptoms are most likely related to the norovirus. Would treat symptomatically and expect her to improve over the next 24-48 hours. Don't feel this is ulcer disease and don't feel endoscopy is necessary. History of Present Illness Reason for Consultation: abdominal pain Attending Physician: Cameron Duggan MD History of Present Illness 79 year old female with abrupt onset of bloating abdominal discomfort on Sunday about 11 pm followed by projectile vomiting and then profuse diarrhea. She was admitted to the hospital yesterday. She had gone to eat at a "truck stop" that evening around 5 pm and had a salad. CT suggested small bowel dilation. Stool test this morning shows (+) norovirus. She interestingly had a colonoscopy two weeks ago by Dr. Curry. Allergies Allergy/AdvReac Type Severity Reaction Status Date / Time Sulfa (Sulfonamide Allergy Mild Rash Verified 10/18/24 09:23 Antibiotics) sulfamethoxazole Allergy Mild Rash Verified 10/18/24 09:23 trimethoprim Allergy Mild Rash Verified 10/18/24 09:23 adhesive Allergy Unknown Skin Verified 10/18/24 09:23 Irritation latex Allergy Unknown Rash Verified 10/18/24 09:23 Home Medications Medication Instructions Recorded Confirmed Type acetaminophen 325 mg tablet 650 mg PO QID PRN Pain 11/10/19 10/18/24 History (Tylenol) pantoprazole 40 mg tablet,delayed 40 mg PO BID 11/10/19 10/18/24 History release bupropion HCl 150 mg tablet,12 hr 150 mg PO QAM 03/20/23 10/18/24 History sustained-release lamotrigine 100 mg tablet 100 mg PO QPM 03/20/23 10/18/24 History rosuvastatin 5 mg tablet 5 mg PO DAILY 03/20/23 10/18/24 History desvenlafaxine succinate 50 mg 50 mg PO QPM 07/01/24 10/18/24 History tablet,extended release 24 hr cyanocobalamin (vitamin B-12) 3,000 mcg PO QAM 08/14/24 10/18/24 History 1,000 mcg tablet (Vitamin B-12) ergocalciferol (vitamin D2) 1,250 50,000 unit PO WK 10/18/24 10/18/24 History mcg (50,000 unit) capsule gabapentin 400 mg capsule See Rx Instructions .Route .COMPLEX 10/18/24 10/18/24 History Patient History Medical History History of kidney stones lithotripsy Bipolar disorder Asthma allergy induced, no inhalers, stable Hx of migraines Mild mitral valve prolapse follows with Tanika HOLLOWAY, Sherin Arellano Hyperlipidemia GERD (gastroesophageal reflux disease) Anxiety and depression Surgical History History of cholecystectomy History of hysterectomy Hx of cataract extraction right History of esophagogastroduodenoscopy (EGD) Hx of colonoscopy Hx of non-cataract eye surgery Hx of wisdom tooth extraction Family History Other Heart disease Social History Smoking Status: Never smoker Second Hand Exposure: No; Do You Dip or Chew Tobacco: No; Hx Alcohol Use: No Hx Substance Use: No Preferred Language: French Communication Ability: Effective Supervisor [employer]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: No Beliefs That Will Affect Care: None marital status: Current Living Situation: Spouse Current Living Situation Comment: at home with current occupational status: retired Other Information That Helps Us Care for You: No Feels Safe at Home: Yes Safety Concerns: Feels Safe At This Time Assistive Devices: Glasses Review of Systems Review of Systems: All systems reviewed & are unremarkable except as noted in HPI & below Physical Exam Constitutional: WD/WN, vitals as above Neck: trachea midline, no thyromegaly Respiratory: normal respiratory effort, lungs clear to auscultation Cardiovascular: RRR, no murmur, no edema Gastrointestinal (Abdomen): normal bowel sounds, soft, nontender, no hepatosplenomegaly Results & Data Vital Signs (Past 12 Hours) Vital Signs Temp Pulse Pulse Resp BP Pulse Ox O2 Del Method 10/19/24 07:56 36.4 C L 72 20 112/64 98 Room Air 10/19/24 07:00 74 10/19/24 02:40 37.1 C 73 16 110/55 L 99 Room Air 10/18/24 22:59 37.0 C 72 16 109/63 98 Room Air Laboratory Results 10/19/24 10/19/24 Range/Units 05:57 04:11 WBC 4.26 L (4.8-10.8) K/ul RBC 3.85 L (4.20-5.40) M/uL Hgb 11.3 L (12.0-16.0) g/dl Hct 34.6 L (37.0-47.0) % MCV 89.9 (80.0-100.0) fL MCH 29.4 (25.0-34.0) pg MCHC 32.7 (32.0-36.0) g/dL RDW Std Deviation 42.5 (36.4-46.3) fL RDW Coeff of Felisha 13.0 (11.5-14.5) % Plt Count 185 (130-400) K/uL MPV 10.6 (9.4-12.4) fL Immature Gran % (Auto) 0.5 % Neut % (Auto) 60.8 % Lymph % (Auto) 23.2 % [place] % (Auto) 10.6 % Eos % (Auto) 4.2 % Baso % (Auto) 0.7 % Neut # (Auto) 2.59 (1.40-6.50) K/uL Lymph # (Auto) 0.99 L (1.20-3.40) K/uL [place] # (Auto) 0.45 (0.11-0.59) K/uL Eos # (Auto) 0.18 (0.00-0.50) K/uL Baso # (Auto) 0.03 (0.00-0.20) K/uL Immature Gran # (Auto) 0.02 (0.01-0.20) K/uL Sodium 141 (136-145) mmol/L Potassium 3.8 (3.5-5.1) mmol/L Chloride 110 H (98-107) mmol/L Carbon Dioxide 25 (21-32) mmol/L Anion Gap 6 (3-11) BUN 9 (6-23) mg/dl Creatinine 0.58 L (0.6-1.2) mg/dl Est Cr Clr Drug Dosing 74.6 ml/min eGFR 93.15 BUN/Creatinine Ratio 15.5 (10-20) Glucose 91 (70-99(Fasting)) mg/dl Calcium 8.3 L (8.6-10.3) mg/dl Total Bilirubin 0.4 (0.2-1.0) mg/dl Direct Bilirubin 0.0 (0-0.2) mg/dl AST 30 (13-39) U/L ALT 28 (7-52) U/L Alkaline Phosphatase 58 (34-104) U/L Total Protein 5.6 L (6.0-8.3) gm/dl Albumin 3.7 (3.4-5.0) gm/dl Lipase 37 (11-82) U/L Stl C. cayetanensis PCR Not Detected (NotDetected) Stool Rotavirus A PCR Not Detected (NotDetected) Stl Adenov F 40/41 PCR Not Detected (NotDetected) Stool Astrovirus (PCR) Not Detected (NotDetected) Stool Campylobacter PCR Not Detected (NotDetected) Stl C. diff Tox B Gene Negative Cdiff Gene (Neg) Stool Cryptosporidium PCR Not Detected (NotDetected) Stl E.coli Shiga Tox PCR Not Detected (NotDetected) Stl Enterotoxigenic E PCR Not Detected (NotDetected) Stool EPEC (PCR) Not Detected (NotDetected) Stool EAEC (PCR) Not Detected (NotDetected) Stl E. histolytica PCR Not Detected (NotDetected) Stool Giardia Lamblia PCR Not Detected (NotDetected) Stool Salmonella PCR Not Detected (NotDetected) Stool Sapovirus (PCR) Not Detected (NotDetected) Stl P. shigelloides PCR Not Detected (NotDetected) Stl Shigella/EIEC PCR Not Detected (NotDetected) St Y.enterocolitica PCR Not Detected (NotDetected) Stool Vibrio (PCR) Not Detected (NotDetected) Stl Vibrio cholerae PCR Not Detected (NotDetected) Stl Norovirus GI/GII PCR DETECTED A* (NotDetected) Diagnostic Findings Abdomen/Pelvis CT 10/18/24 05:45 EXAM: CT abd pelvis IV con only CLINICAL HISTORY: Last evening started not feeling well. Around 2300 had N/V/D and chills. Feels bloated. Denies CP or SOB. TECHNIQUE: CT of the abdomen and pelvis was performed with IV contrast, with the following protocol: axial images with reconstructed coronal and sagittal images. One of the following dose reduction techniques was utilized for this exam: Automated exposure control, adjustment of the mA and/or kV according to patient size, and use of iterative reconstruction. COMPARISON: CT dated 06/24/2024. FINDINGS: Abdomen: Liver: Normal in size, shape, and density. Small marginally enhancing focal lesion noted in segment Roberta measures 7.3 mm, could be hemangioma. No cysts, or masses were identified. Hepatic vasculature and biliary ducts are unremarkable. Gallbladder and Biliary System: The gallbladder is removed surgically. CBD is measuring 1.1cm due to post cholecystectomy status. Pancreas: Pancreatic head, body, and tail are visualized and appear normal in size and density. No pancreatic masses or calcifications were noted. The pancreatic duct is not dilated. Spleen: Normal in size, shape, and density. No splenic lesions or masses were identified. Kidneys and Adrenal Glands: Both kidneys are normal in size, shape, and position. Tiny left cortical cyst. Cortical thickness is within normal limits. No renal calculi or hydronephrosis. Adrenal glands are unremarkable with no evidence of masses or hyperplasia. Pelvis: Urinary Bladder: Normal in contour and wall thickness. No intraluminal lesions were identified. Uterus: Removed surgically. Ovaries: Not well visualized but no gross abnormalities were noted. Bowel: The small bowel shows prominent diameter 2-2.5cm, no gross wall thickening. No evidence of bowel obstruction. Bones and Soft Tissues: Pelvic bones and soft tissues are unremarkable. No fractures or abnormal masses were identified. Lower chest shows mild bilateral lower lobe bronchiectasis, and bilateral sub-pleural line and thin atlectatic band bilaterally. A small hiatus hernia. IMPRESSION: 1. Interval new prominent diameter of the small bowel measuring 2-2.5cm, no gross wall thickening. No evidence of bowel obstruction, features could be related to inflammatory/infectious process. Clinical correlation is suggested. 2. Small marginally enhancing hepatic focal lesion noted in segment Roberta measures 7.3 mm, could be hemangioma. 3. Tiny stable left renal uncomplicated cortical cyst. 4. Lower chest shows mild bilateral lower lobe bronchiectasis, and bilateral sub-pleural line and thin atlectatic band bilaterally. These findings are more conspicuous in the current study. Further Chest CT is suggested as clinically indicated. 5. Interval improved left sided hydronephrosis due to left mid-uretric stone. 6. Stable small hiatus hernia. 7. The rest of the abdomen and pelvis demonstrate normal findings. Electronically signed by Nicolas Purvis 10-18-2024 08:22 AM
[2024-10-19] MEDS: PROMETHAZINE 12.5 MG/50.5 ML BAG IV PRN (11:40)
--- NOTE | 2024-10-19 14:36 | Hospitalist Progress Note ---
Date of Service October 19, 2024 Assessment & Plan (1) Abdominal pain: (2) Vomiting and diarrhea: Plan: 79-year-old female with history of gastric ulcer, gastroesophageal reflux disease, dyslipidemia, bipolar 1 disorder, nephrolithiasis presenting with abdominal pain vomiting, diarrhea since the evening [employer]. She is being managed for the following: Severe abdominal pain, with vomiting and diarrhea Norovirus related gastroenteritis Other differential could be possible peptic ulcer disease Patient has a history of gastric ulcer, esophagitis, status post EGD in 2021. She is currently taking Protonix 40 mg twice daily. Patient reports she also takes advil almost daily, pt advised to refrain from using advil/nsaids. Stool PCR came back positive for norovirus, negative for CDiff c/w protonix and sucralfate. Pain Mx. Patient reports feeling better, no abdominal tenderness on exam Will continue with supportive management, advance diet as tolerated, monitor replete electrolytes. GI evaluated, appreciate recommendation. Other chronic medical problems: Dyslipidemia Nephrolithiasis Bipolar disorder DVT prophylaxis: SCDs for now Full code as per patient Disposition: Lives with family at home Admission and Anticipated Discharge Date Admission Date: October 18, 2024 Subjective Patient was seen and examined at bedside. Patient was lying in bed, on room air, NAD, resting comfortably. Patient reports improvement in her nausea, vomiting, diarrhea. Patient is able to take bites of food but gets sick at stomach/has diarrhea if she eats more than few bites at a time. Physical Exam Physical Exam: General- oriented x 3, not in distress, speaks in sentences with no effort or accessory muscle use Anxious Head- atraumatic Eyes- PERRL, EOMI, anicteric ENT- oropharynx clear Neck- supple, no JVD, no adenopathy, no thyromegaly; carotids +2/2, no bruits appreciated Lungs- clear to auscultation bilaterally, no rales/wheezes Heart- normal rate, regular rhythm; no murmur, no gallop, no rub appreciated Abdomen- normal bowel sounds, nondistended, soft, non tender, no masses or hepatosplenomegaly Extremities- no pretibial edema, no calf tenderness; peripheral pulses intact Neuro- alert, oriented x 3; CN 2-12 grossly intact; motor 5/5 bilaterally;sensation 100% on all extremities; no other gross focal neurologic deficits Skin- warm & dry Results & Data Results & Data Vital Signs (Past 12 Hours) Vital Signs Temp Pulse Pulse Resp BP Pulse Ox O2 Del Method 10/19/24 13:55 85 10/19/24 12:12 36.3 C L 79 16 161/68 H 99 Room Air 10/19/24 07:56 36.4 C L 72 20 112/64 98 Room Air 10/19/24 07:00 74 10/19/24 02:40 37.1 C 73 16 110/55 L 99 Room Air
[2024-10-20 06:33] LABS: Hematocrit (blood only) 35.3 % (37.0-47.0); Hemoglobin 11.7 g/dl (12.0-16.0); Mean Corpuscular Hemoglobin 29.7 pg (25.0-34.0); Mean Corpuscular Hgb Conc 33.1 g/dL (32.0-36.0); Mean Corpuscular Volume 89.6 fL (80.0-100.0); Mean Platelet Volume 10.8 fL (9.4-12.4); Platelet Count 196 K/uL (130-400); RDW Coefficient of Variation 12.7 % (11.5-14.5); RDW Standard Deviation 41.5 fL (36.4-46.3); Red Blood Count 3.94 M/uL (4.20-5.40); White Blood Count 4.87 K/ul (4.8-10.8)
[2024-10-20 07:02] LABS: BUN Creatinine Ratio 11.1 (10-20); Calcium 8.5 mg/dl (8.6-10.3); Creatinine Clr Calc Pharmacy 68.6 ml/min; Phosphorus 3.1 mg/dl (2.5-4.9); Potassium 3.5 mmol/L (3.5-5.1)
[2024-10-20 08:10] VITALS: RESP 16
[2024-10-20 11:37] VITALS: BP 144/80; TEMP 97.9; O2SAT 97
[2024-10-20] MEDS: CALCIUM CARBONATE 500 MG CHEWABLE TAB PO ONE (11:58)
[2024-10-20] MEDS ORDERED: CALCIUM CARBONATE 500 MG CHEWABLE TAB PO PRN (11:59)
--- NOTE | 2024-10-20 14:03 | Discharge Summary ---
Date of Service October 20, 2024 Admission HPI Per Admitting Provider 79-year-old female with history of gastric ulcer, gastroesophageal reflux disease, dyslipidemia, bipolar 1 disorder, nephrolithiasis Presenting with abdominal pain vomiting, diarrhea since last evening. As per patient, she her stomach was not feeling great the whole day yesterday. She could not describe exactly her symptoms but states her stomach was just feeling off and had to be careful with what she was eating. In the evening, patient developed severe abdominal, mostly epigastric pain, sharp, burning which then progressed to multiple episodes of vomiting-nonbloody, nonbilious. Afterwards she also developed multiple episodes of nonbloody diarrhea. No fevers or chills, headache, chest pain, shortness of breath, sweating. Persistence of symptoms prompted patient to come to the ER. At the ER, patient was received with stable vital signs overall WBC 16,000 Renal function, LFTs, lipase normal Urinalysis also normal CT abdomen and pelvis: Interval new prominent diameter of the small bowel measuring 2-2.5cm, no gross wall thickening. No evidence of bowel obstruction, features could be related to inflammatory/infectious process. Clinical correlation is suggested. She was given multiple doses of morphine, Protonix, Zofran, Bentyl without improvement. On exam, patient seen sitting up in bed, not in distress, but still reporting severe epigastric pain-mostly sharp. No active nausea or diarrhea on my exam. Still without chest pain, shortness of breath, palpitations, dizziness Admission Exam Per Admitting Provider General- oriented x 3, not in distress, speaks in sentences with no effort or accessory muscle use Anxious Head- atraumatic Eyes- PERRL, EOMI, anicteric ENT- oropharynx clear Neck- supple, no JVD, no adenopathy, no thyromegaly; carotids +2/2, no bruits appreciated Lungs- clear to auscultation bilaterally, no rales/wheezes Heart- normal rate, regular rhythm; no murmur, no gallop, no rub appreciated Abdomen- normal bowel sounds, nondistended, soft,Mild tenderness in all quadrants, no masses or hepatosplenomegaly Extremities- no pretibial edema, no calf tenderness; peripheral pulses intact Neuro- alert, oriented x 3; CN 2-12 grossly intact; motor 5/5 bilaterally;sensation 100% on all extremities; no other gross focal neurologic deficits Skin- warm & dry Principal Diagnosis Severe abdominal pain, with vomiting and diarrhea Norovirus related gastroenteritis Discharge Exam General- oriented x 3, not in distress, speaks in sentences with no effort or accessory muscle use Anxious Head- atraumatic Eyes- PERRL, EOMI, anicteric ENT- oropharynx clear Neck- supple, no JVD, no adenopathy, no thyromegaly; carotids +2/2, no bruits appreciated Lungs- clear to auscultation bilaterally, no rales/wheezes Heart- normal rate, regular rhythm; no murmur, no gallop, no rub appreciated Abdomen- normal bowel sounds, nondistended, soft, non tender, no masses or hepatosplenomegaly Extremities- no pretibial edema, no calf tenderness; peripheral pulses intact Neuro- alert, oriented x 3; CN 2-12 grossly intact; motor 5/5 bilaterally;sensation 100% on all extremities; no other gross focal neurologic deficits Skin- warm & dry Discharge Data Allergies Allergy/AdvReac Type Severity Reaction Status Date / Time Sulfa (Sulfonamide Allergy Mild Rash Verified 10/18/24 09:23 Antibiotics) sulfamethoxazole Allergy Mild Rash Verified 10/18/24 09:23 trimethoprim Allergy Mild Rash Verified 10/18/24 09:23 adhesive Allergy Unknown Skin Verified 10/18/24 09:23 Irritation latex Allergy Unknown Rash Verified 10/18/24 09:23 Consultations 10/18/24 09:24 ED Decision to Admit Stat 10/18/24 09:31 Consult Gastroenterology Routine Ordered Studies 10/18/24 05:45 CT abd pelvis IV con only Stat Hospital Course (1) Abdominal pain: (2) Vomiting and diarrhea: 79-year-old female with history of gastric ulcer, gastroesophageal reflux disease, dyslipidemia, bipolar 1 disorder, nephrolithiasis presenting with abdominal pain vomiting, diarrhea since the evening [employer]. She was managed for the following: Severe abdominal pain, with vomiting and diarrhea Norovirus related gastroenteritis Other differential could be possible peptic ulcer disease Patient has a history of gastric ulcer, esophagitis, status post EGD in 2021. She is currently taking Protonix 40 mg twice daily. Patient reports she also takes advil almost daily, pt advised to refrain from using advil/nsaids. Stool PCR came back positive for norovirus, negative for CDiff c/w protonix and sucralfate. Patient tolerating diet well, no abdominal pain, no tender on exam. Patient reports feeling back to her baseline and is hemodynamically stable and would like to go home. Other chronic medical problems: Dyslipidemia Nephrolithiasis Bipolar disorder DVT prophylaxis: SCDs for now Full code as per patient Disposition: Lives with family at home Patient being discharged to home with following instruction at the point of discharge: Follow-up with your primary care physician within a week time and likely you will need labs CBC/CMP/magnesium/phosphorus. You were evaluated for norovirus related gastroenteritis, continue with easily digestible food/soft diet for next few days. Adequately hydrate yourself. It is recommended that you avoid any NSAIDs [example Motrin/Aleve/ibuprofen/naproxen] in future given history of gastric ulcer. Continue with your home dose of pantoprazole, you will be discharged on sucralfate to complete 10-day course. If your indigestion symptoms does not improve, you might benefit from GI evaluation as an outpatient, coordinate with your PCP office to set up the referral. Take your medications as prescribed. Please make sure that you are able to get your medications today by calling your pharmacy before you leave the hospital so that your treatment continuity is not broken. Home Health Attestation I certify that this patient is under my care and that I, or a physicians radiology physician assistant working with me, had a face to-face encounter that meets the home health [id number] encounter requirements with this patient. The encounter with the patient was in whole, or in part, for the following medical condition, which is the primary reason for home health care (list me dical condition): I certify that, based on my findings, the following services are medically necessary home health services: My clinical findings support the need for the above services because: Further, I certify that my clinical findings support that this patient is homebound (i.e. absences from home require considerable and taxing effort and are for medical reasons or islam services or infrequently or of short duration when for other reasons) because: Certification for Home Health Services: Based on the above findings, I certify that this patient is confined to the home and needs intermittent care home care, physical therapy and/or speech th erapy or continues to need occupational therapy. The patient is under my care, and I have initiated the establishment of the plan of care. This patient will be followed by a physician who will periodically review the plan of care. Total Time Total Time Spent Total Time Spent (In Minutes): 35 Discharge Plan Discharge Items Patient Disposition: Home - Self-Care Reason For Visit: ABDOMINAL PAIN, NAUSEA Discharge Diagnosis: Severe abdominal pain, with vomiting and diarrhea Norovirus related gastroenteritis Condition on Discharge: Good Activity: Resume your previous activity Non-emergency contact: Primary Care Provider Call non-emergency contact if: you have any medication questions, your symptoms worsen and your temperature is above 101 Follow-up/Referrals: Devan Montes MD [Primary Care Provider] - Diet: Regular Diet Texture: Dental soft (bite-sized) Addtl Attending Provider Instructions: Follow-up with your primary care physician within a week time and likely you will need labs CBC/CMP/magnesium/phosphorus. You were evaluated for norovirus related gastroenteritis, continue with easily digestible food/soft diet for next few days. Adequately hydrate yourself. It is recommended that you avoid any NSAIDs [example Motrin/Aleve/ibuprof en/naproxen] in future given history of gastric ulcer. Continue with your home dose of pantoprazole, you will be discharged on sucralfate to complete 10-day course. If your indigestion symptoms does not improve, you might benefit from GI evaluation as an outpatient, coordinate with your PCP office to set up the referral. Take your medications as prescribed. Please make sure that you are able to get your medications today by calling your pharmacy before you leave the hospital so that your treatment continuity is not broken. Pending Studies at Discharge: No Stand-Alone Forms: [facility], Smoking Cessation Medications and DC Order Prescriptions: New calcium carbonate [Tums] 200 mg calcium (500 mg) Tablet,Chewable 1,000 mg PO Q8H PRN (Reason: dyspepsia) Qty: 90 0RF sucralfate 1 gram tablet 1 g PO QID 8 Days Qty: 32 0RF Continued acetaminophen [Tylenol] 325 mg Tablet 650 mg PO QID PRN (Reason: Pain) Rx Instructions: Unable to verify OTC meds at this date/time. bupropion HCl 150 mg tablet sustained-release 12 hr 150 mg PO QAM lamotrigine 100 mg tablet 100 mg PO QPM rosuvastatin 5 mg tablet 5 mg PO DAILY desvenlafaxine succinate 50 mg tablet extended release 24 hr 50 mg PO QPM cyanocobalamin (vitamin B-12) [Vitamin B-12] 1,000 mcg Tablet 3,000 mcg PO QAM Rx Instructions: Unable to verify OTC meds at this date/time. gabapentin 400 mg capsule See Rx Instructions .ROUTE .COMPLEX Rx Instructions: Per pharmacy, patient has been picking up Gabapentin 400mg & 300mg simultaneously but directions don't state to take them together. Unable to verify if patient is taking them together or alternating. Original Directions: 400mg by mouth TID ergocalciferol (vitamin D2) 1,250 mcg (50,000 unit) capsule 50,000 unit PO WK pantoprazole 40 mg tablet,delayed release (DR/EC) 40 mg PO BID Qty: 60 0RF Discharge Orders: Discharge Order (Routine); Ordered 10/20/24 Ordered By: Cameron Duggan Admission Data Admit Date/Time: 10/18/24 09:31 Attending Provider: Cameron Duggan Admit Provider: Jordan Solares Primary Care Provider: Devan Montes Other Providers: Jordan Solares; Nirmala Edwards Jr
[2024-10-20 14:46] VITALS: PULSE 74
[2024-10-22] MEDS ORDERED: ERGOCALCIFEROL 1250 MCG (50,000 UNITS) CAP PO SCH (09:00)
== END 2024-10-20 15:09 | disposition home or self-care (01) | DRG 392 ==
LOC: ED 03:31 → INTOOBSV 09:31 → EDINP 09:31 → SUATTDRO 09:31 → 2W 12:36